=== PATIENT | female | born 1945 | race Caucasian/White ===

== ENCOUNTER → 2022-01-17 13:17 | Outpatient (CLI) | payer SELFPAY ==
[2022-01-17 19:23] LABS: Alanine Aminotransferase 20 IU/L (<35); Albumin 3.8 g/dL (3.5-5.0); Albumin Globulin Ratio 1.3 (1.0-2.8); Alkaline Phosphatase 130 U/L (38-126); Aspartate Aminotransferase 90 IU/L (14-36); BUN Creatinine Ratio 31.6 (6-22); Bilirubin Total 0.4 mg/dL (0.2-1.3); Blood Urea Nitrogen 25 mg/dL (7-17); Calcium 8.9 mg/dL (8.4-10.2); Carbon Dioxide 36 mmol/L (22-32); Chloride 102 mmol/L (98-107); Estimated Glomerular Filt Rate > 60 mL/min (>60); Globulin 2.9 g/dL (1.7-4.1); Glucose 89 mg/dL (80-110); HEMOLYSIS 19 (0-50); Potassium 3.9 mmol/L (3.4-5.1); Sodium 139 mmol/L (137-145); Total Protein 6.7 g/dL (6.3-8.2)
[2022-01-17 19:43] LABS: HEMOLYSIS < 15 (0-50); Iron 95 ug/dL (37-170)
[2022-01-17 19:46] LABS: Vitamin D 25 Hydroxy (D3) 25.6 ng/mL (30.0-100.0)
[2022-01-17 19:47] LABS: Add Manual Diff / Slide Review NO; Basophils Absolute Auto 0 /uL (0-100); Basophils Percent Auto 0.3 % (0-2); Eosinophils Absolute Auto 100 /uL (0-450); Eosinophils Percent Auto 1.3 % (2-4); Hematocrit 32.1 % (36-46); Hemoglobin 10.9 g/dL (12.0-16.0); Lymphocytes Absolute Auto 1300 /uL (1100-4500); Lymphocytes Percent Auto 15.5 % (25-40); Mean Corpuscular HGB Conc 33.9 % (30-36); Mean Corpuscular Hemoglobin 31.6 PG (26-34); Mean Corpuscular Volume 93.2 fL (80-100); Monocytes Absolute Auto 900 /uL (0-900); Monocytes Percent Auto 10.3 % (3-14); Neutrophils Absolute Auto 6100 /uL (1500-7000); Neutrophils Percent Auto 72.6 % (50-75); Platelet Count 233 X10^3/uL (150-400); Red Blood Cell Count 3.45 X10^6/uL (4.0-5.2); Red Cell Distribution Width 14.9 % (11.6-14.8); White Blood Cell Count 8.3 X10^3/uL (4.5-11.0)
[2022-01-17 19:55] LABS: Percent Iron Saturation 32 % (15-50); Total Iron Binding Capacity 297 ug/dL (265-497); Transferrin 229 mg/dL (206-381)
[2022-01-17 20:12] LABS: Vitamin B12 232 pg/mL (239-931)
[2022-01-17 20:21] LABS: TSH w/ Reflex to FT4 0.65 uIU/mL (0.47-4.68)
== END ==
PROVIDERS: PCP Family Medicine; Visit Provider Family Medicine
DX: E46 Unspecified protein-calorie malnutrition (principal); E74.39 Other disorders of intestinal carbohydrate absorption; G47.00 Insomnia, unspecified; N32.81 Overactive bladder; R25.1 Tremor, unspecified; R35.0 Frequency of micturition; R41.3 Other amnesia; R41.89 Other symptoms and signs involving cognitive functions and awareness; R63.4 Abnormal weight loss
CPT/HCPCS: 80053; 82306; 82607; 83540; 83550; 84443; 85025

== ENCOUNTER → 2022-01-19 10:34 | Outpatient (CLI) | payer SELFPAY ==
[2022-01-19 20:25] LABS: Appearance Urine UA Clear; Color Urine UA Yellow; Glucose Urine UA NEGATIVE (Negative); Ketones Urine UA NEGATIVE (NEGATIVE); Protein Urine UA Negative (Negative); Specific Gravity Urine UA 1.015 (1.000-1.035)
[2022-01-19 20:26] LABS: Bilirubin Urine UA Negative (NEGATIVE); Leukocyte Esterase Urine UA NEGATIVE (NEGATIVE); Nitrite Urine UA NEGATIVE (Negative); Occult Blood Urine UA Negative (Negative); Urobilinogen Urine UA 0.2 E.U./dL (0.2)
[2022-01-19 20:29] LABS: Bacteria Urine None Seen; Culture Indicated Urine Cult Not Indicated; RBC Urine 0-1/HPF (0-5/HPF); WBC Urine 0-1/HPF (0-5/HPF)
== END ==
PROVIDERS: PCP Family Medicine; Visit Provider Family Medicine
DX: E46 Unspecified protein-calorie malnutrition (principal); E74.39 Other disorders of intestinal carbohydrate absorption; G47.00 Insomnia, unspecified; N32.81 Overactive bladder; R25.1 Tremor, unspecified; R35.0 Frequency of micturition; R41.3 Other amnesia; R41.89 Other symptoms and signs involving cognitive functions and awareness; R63.4 Abnormal weight loss
CPT/HCPCS: 81001

== ENCOUNTER → 2022-02-16 16:20 | Outpatient (CLI) | payer SELFPAY ==
--- NOTE | 2022-02-16 16:23 | DI.MRI.S_ITS ---
PROCEDURE: MR HEAD/BRAIN WO/W CON INDICATIONS: Severe congnative decline TECHNIQUE: Noncontrast axial T1 spin echo, axial T2 fast spin echo, sagittal and axial FLAIR, coronal T2 fast spin echo, axial gradient echo, axial diffusion and ADC through the brain. After the administration of contrast, axial and coronal and sagittal T1 spin echo with fat saturation through the brain. COMPARISON: None. FINDINGS: Image quality: Excellent. CSF spaces: Basal cisterns are patent. No extra-axial fluid collections. Ventricles are normal in size and shape. Brain: No midline shift. No intracranial bleeds or masses. No abnormal intracranial enhancement. There is cerebral volume loss for age. There is periventricular white matter chronic small vessel ischemic change. The brainstem appears normal. Diffusion-weighted images demonstrate no acute ischemic insults. No chronic ischemic insults. Normal intravascular flow voids are present. Skull and face: Calvarial marrow is normal in signal. Orbits appear normal. Sinuses: Sinuses and mastoids appear clear. IMPRESSION: Brain MRI within normal limits for age, with note made of age-appropriate brain parenchymal volume loss and chronic small vessel ischemic change. No masses or abnormal enhancement can be seen. Dictated by: Roscoe Morillo M.D. on 02/16/2022 at 17:36 Approved by: Roscoe Morillo M.D. on 02/16/2022 at 17:37
== END ==
PROVIDERS: PCP Family Medicine; Referring Provider Family Medicine; Visit Provider Family Medicine
DX: R41.3 Other amnesia (principal); R41.89 Other symptoms and signs involving cognitive functions and awareness; E44.0 Moderate protein-calorie malnutrition; R63.4 Abnormal weight loss
CPT/HCPCS: 70553; A9579

== ENCOUNTER → 2022-06-06 17:17 | Outpatient (CLI) | payer MEDICAID, SELFPAY | PROVIDERS: PCP Family Medicine; Visit Provider Physician Assistant | DX: N39.41 Urge incontinence (principal) | CPT/HCPCS: 72100; 81002; 87086 ==

== ENCOUNTER → 2022-06-12 11:27 | Outpatient (CLI) | payer MEDICAID, SELFPAY ==
[2022-06-12 18:51] LABS: Add Manual Diff / Slide Review NO; Basophils Absolute Auto 0 /uL (0-100); Basophils Percent Auto 0.5 % (0-2); Eosinophils Absolute Auto 100 /uL (0-450); Eosinophils Percent Auto 1.1 % (2-4); Hematocrit 33.9 % (36-46); Hemoglobin 11.6 g/dL (12.0-16.0); Lymphocytes Absolute Auto 1400 /uL (1100-4500); Lymphocytes Percent Auto 20.1 % (25-40); Mean Corpuscular HGB Conc 34.1 % (30-36); Mean Corpuscular Hemoglobin 32.1 PG (26-34); Mean Corpuscular Volume 94.1 fL (80-100); Monocytes Absolute Auto 700 /uL (0-900); Monocytes Percent Auto 10.1 % (3-14); Neutrophils Absolute Auto 4800 /uL (1500-7000); Neutrophils Percent Auto 68.2 % (50-75); Platelet Count 282 X10^3/uL (150-400); Red Cell Distribution Width 12.6 % (11.6-14.8)
[2022-06-12 19:31] LABS: Ferritin 36 ng/mL (11-264)
[2022-06-14 05:12] LABS: Ceruloplasmin 29.9 mg/dL (19.0-39.0)
[2022-06-15 20:45] LABS: Hep C Virus Ab w/Reflex Quant NEGATIVE s/c (NEGATIVE); Hepatitis B Surface Antigen NEGATIVE s/c (NEGATIVE)
[2022-06-16 12:36] LABS: ANA Screen, IFA Negative (.)
== END ==
PROVIDERS: Physician Assistant; PCP Family Medicine; Visit Provider Family Medicine
DX: E44.0 Moderate protein-calorie malnutrition (principal); R63.4 Abnormal weight loss; R79.89 Other specified abnormal findings of blood chemistry; M54.50 Low back pain, unspecified
CPT/HCPCS: 82390; 82728; 85025; 86038; 86803; 87340

== ENCOUNTER → 2022-07-19 11:22 | Outpatient (CLI) | payer MEDICARE, MEDICAID, SELFPAY ==
--- NOTE | 2022-07-19 11:24 | DI.MRI.S_ITS ---
PROCEDURE: MR HEAD/BRAIN WO CON INDICATIONS: recent sudden change in cognition TECHNIQUE: Non-contrast axial T1 spin echo, axial T2 fast spin echo, sagittal and axial FLAIR, coronal T2 fast spin echo, axial gradient echo, axial diffusion and ADC through the brain. COMPARISON: [facility], MR, MR HEAD/BRAIN WO/W CON, 02/16/2022, 17:03. FINDINGS: Image quality: Partially degraded by motion artifact. CSF spaces: Ventricles appear symmetric in size and shape. Basal cisterns are patent. No extra-axial fluid collections. Brain: No intracranial bleeds or mass effects. There is cerebral volume loss for age. There are periventricular and deep white matter chronic small vessel ischemic changes. Brainstem appears normal. Diffusion-weighted images show no acute ischemic insults. No chronic ischemic insults. Normal intravascular flow voids are present. Skull and face: Calvarial bone marrow is normal in signal. Orbits are normal. Sinuses: Sinuses and mastoids are clear. IMPRESSION: 1. Volume loss and small vessel ischemic disease. 2. No acute process. No recent infarct. Dictated by: Bar Bhat M.D. on 07/19/2022 at 12:35 Transcribed by: VANNA on 07/19/2022 at 12:36 Approved by: Bar Bhat M.D. on 07/19/2022 at 16:23
== END ==
PROVIDERS: PCP Family Medicine; Referring Provider Family Medicine; Visit Provider Family Medicine
DX: R55 Syncope and collapse (principal); R41.89 Other symptoms and signs involving cognitive functions and awareness
CPT/HCPCS: 70551

== ENCOUNTER → 2022-07-19 15:28 | Outpatient (CLI) | payer MEDICARE, MEDICAID, SELFPAY ==
--- NOTE | 2022-07-19 15:33 | DI.CT.S_ITS ---
PROCEDURE: CT ABDOMEN PELVIS WO/W CON INDICATIONS: Asymptomatic microscopic hematuria TECHNIQUE: Optional 5 mm thick noncontrast images acquired from the diaphragm to the symphysis pubis. After the administration of intravenous contrast, 5 mm thick images acquired from the diaphragm to the symphysis pubis after a 10-minute delay. 2 mm thick coronal and sagittal reformats were then performed of the kidneys and ureters. For radiation dose reduction, the following was used: automated exposure control, adjustment of mA and/or kV according to patient size. COMPARISON: None. FINDINGS: Image quality: Excellent. Lung bases: Lung bases are clear. Heart size is normal. Urinary system: Both kidneys are normal in size, without hydronephrosis or nephrolithiasis on pre-contrast images. No perinephric fat stranding. There is normal bilateral renal enhancement. Renal calyces appear normal in morphology when filled with contrast. A 1.1 cm cyst is seen at the inferior pole of the right kidney. Additional subcentimeter hypodensities in both kidneys are too small to characterize, but are most likely cysts. Opacified portions of both ureters demonstrate normal caliber. Portions of the proximal left ureter and distal right ureter are not opacified. Bladder wall thickness is normal. No calcified bladder stones. Other solid organs: Liver is normal in size and enhancement. 1.3 cm cyst is seen in the a central liver. Gallbladder is unremarkable. Biliary system is non dilated. Pancreas enhances normally. Spleen is normal in size and enhancement. No adrenal nodules. Peritoneum and bowel: Bowel loops demonstrate normal wall thickness and caliber. No free fluid or air. Nodes and vessels: No retroperitoneal or mesenteric adenopathy by size criteria. Aorta and inferior vena cava are normal in size. Abdominal wall: No ventral hernias. Pelvis: No pathologic free pelvic fluid. No inguinal hernias or adenopathy. Bones: No suspicious bony lesions. No vertebral body compression fractures. There is 4 mm grade 1 anterolisthesis of L4 on L5 secondary to facet hypertrophy. Mild multilevel degenerative changes. IMPRESSION: No suspicious urothelial lesion or nephrolithiasis. No source for hematuria visualized. Approved by: Mane Juarez M.D. on 07/20/2022 at 8:47
[2022-07-19 16:23] LABS: BUN Creatinine Ratio 35.1 (6-22); Blood Urea Nitrogen 34 mg/dL (7-17); Calcium 9.2 mg/dL (8.4-10.2); Carbon Dioxide 29 mmol/L (22-32); Chloride 100 mmol/L (98-107); Estimated Glomerular Filt Rate > 60 mL/min (>60); Glucose 96 mg/dL (80-110); HEMOLYSIS < 15 (0-50); Potassium 4.5 mmol/L (3.4-5.1); Sodium 136 mmol/L (137-145)
== END ==
PROVIDERS: PCP Family Medicine; Referring Provider Urology; Visit Provider Urology
DX: R55 Syncope and collapse (principal); R41.89 Other symptoms and signs involving cognitive functions and awareness; R41.3 Other amnesia; G47.00 Insomnia, unspecified; R31.21 Asymptomatic microscopic hematuria; N39.8 Other specified disorders of urinary system; N32.81 Overactive bladder; N39.41 Urge incontinence; R33.9 Retention of urine, unspecified
CPT/HCPCS: 36415; 51798; 70551; 74178; 80048; 81002; 99214; Q9967

== ENCOUNTER 2022-10-30 14:13 | Emergency (ER) | payer MEDICARE, MEDICAID, SELFPAY ==
[2022-10-30 14:17] VITALS: BP 138/66; PULSE 76; RESP 18; TEMP 36.6; O2SAT 99
--- NOTE | 2022-10-30 14:25 | DI.RAD.S_ITS ---
PROCEDURE: XR CHEST 1V INDICATIONS: Shortness of breath TECHNIQUE: One view of the chest was acquired. COMPARISON: None. FINDINGS: Surgical changes and devices: None. Lungs and pleura: Lungs are clear. No pleural effusions or pneumothorax. Mediastinum: Mediastinal contours appear normal. Heart size is normal. Bones and chest wall: No suspicious bony lesions. Overlying soft tissues appear unremarkable. IMPRESSION: No acute cardiopulmonary disease process. Dictated by: Macie Barber MD, PhD on 10/30/2022 at 15:02 Approved by: Macie Barber MD, PhD on 10/30/2022 at 15:02
[2022-10-30 14:54] LABS: Add Manual Diff / Slide Review NO; Basophils Absolute Auto 0 /uL (0-100); Basophils Percent Auto 0.5 % (0-2); Eosinophils Absolute Auto 100 /uL (0-450); Eosinophils Percent Auto 1.2 % (2-4); Hematocrit 37.9 % (36-46); Hemoglobin 12.8 g/dL (12.0-16.0); Lymphocytes Absolute Auto 1400 /uL (1100-4500); Lymphocytes Percent Auto 18.5 % (25-40); Mean Corpuscular HGB Conc 33.7 % (30-36); Mean Corpuscular Hemoglobin 31.6 PG (26-34); Mean Corpuscular Volume 93.9 fL (80-100); Monocytes Absolute Auto 800 /uL (0-900); Neutrophils Absolute Auto 5300 /uL (1500-7000); Neutrophils Percent Auto 69.8 % (50-75); Platelet Count 284 X10^3/uL (150-400); Red Blood Cell Count 4.04 X10^6/uL (4.0-5.2); Red Cell Distribution Width 12.7 % (11.6-14.8); White Blood Cell Count 7.5 X10^3/uL (4.5-11.0)
[2022-10-30 15:01] LABS: Prothrombin Time 10.9 SECONDS (10.1-12.7)
[2022-10-30 15:12] LABS: Alanine Aminotransferase 20 IU/L (<35); Albumin 4.3 g/dL (3.5-5.0); Albumin Globulin Ratio 1.1 (1.0-2.8); Alkaline Phosphatase 98 U/L (38-126); Aspartate Aminotransferase 28 IU/L (14-36); BUN Creatinine Ratio 28.9 (6-22); Bilirubin Total 0.5 mg/dL (0.2-1.3); Blood Urea Nitrogen 24 mg/dL (7-17); Calcium 9.1 mg/dL (8.4-10.2); Carbon Dioxide 29 mmol/L (22-32); Chloride 100 mmol/L (98-107); Estimated Glomerular Filt Rate > 60 mL/min (>60); Globulin 3.8 g/dL (1.7-4.1); Glucose 94 mg/dL (80-110); HEMOLYSIS < 15 (0-50); Potassium 3.9 mmol/L (3.4-5.1); Sodium 135 mmol/L (137-145); Total Protein 8.1 g/dL (6.3-8.2)
[2022-10-30 15:14] LABS: Lactate (Lactic Acid) 0.9 mmol/L (0.7-2.1)
[2022-10-30 15:22] LABS: NT-proBNP (BNP-Adult 18+) 66 pg/mL (<450)
[2022-10-30 15:24] LABS: NT-proBNP (BNP-Adult 18+) 64 pg/mL (<450); Troponin I < 0.012 ng/mL (0.01-0.034)
[2022-10-30 15:29] LABS: Influenza A - CEPHEID Flu A NEGATIVE (NEGATIVE); Influenza B - CEPHEID Flu B NEGATIVE (NEGATIVE); Respiratory Syncytial Virus Negative (Negative)
[2022-10-30 15:31] LABS: COVID-19 CEPHEID 4-PLEX PCR Negative (Negative)
[2022-10-30 16:06] LABS: D Dimer 460 ng/ml (<500)
[2022-10-30 17:29] LABS: Troponin I < 0.012 ng/mL (0.01-0.034)
--- NOTE | 2022-10-30 17:37 | ED.SOB ---
HPI - SOB/Dyspnea <Florin Ayoub PA-C - Last Filed: 11/07/22 20:34> General Chief Complaint: Shortness of Breath/Dyspnea Stated Complaint: heavy in chest/SOB/dizzy/upset stomach T-14 Time Seen by Provider: 10/30/22 14:25 Source: patient Mode of arrival: Wheelchair Limitations: no limitations History of Present Illness HPI Narrative: 77-year-old female with a history of cognitive decline presents to the ED with chest pressure. Patient endorses chest pressure, shortness of breath, nausea and dizziness for the past week. Patient also endorses some inspirational chest pain and shortness of breath with exertion. Patient denies fever, chills, vomiting, abdominal pain, dysuria, lightheadedness, dizziness, syncope. Patient is in the ED with her caregiver. Patient has had significant cognitive decline after the passing of her . Related Data Home Medications Medication Instructions Recorded Confirmed mirtazapine 30 mg tablet 30 mg PO BEDTIME 06/29/22 08/03/22 Previous Rx's Medication Instructions Recorded tamsulosin 0.4 mg capsule 0.4 mg PO DAILY #30 caps 08/03/22 tolterodine 2 mg tablet (Detrol) 2 mg PO BID #180 tabs 10/17/22 trazodone 50 mg tablet 50 mg PO BEDTIME PRN insomnia #90 11/05/22 tabs Allergies Allergy/AdvReac Type Severity Reaction Status Date / Time No Known Drug Allergies Allergy Verified 10/30/22 14:22 Review of Systems <Florin Ayoub PA-C - Last Filed: 11/07/22 20:34> Review of Systems ROS Unobtainable: All systems reviewed & are unremarkable except as noted in HPI and below Constitutional Constitutional: Denies chills, Reports fatigue, Denies fever(s), Denies frequent falls, Denies lethargy, Reports poor appetite and Denies weakness Eyes Eyes: Denies change in vision, Denies eye discharge, Denies irritation and Denies loss of vision ENT Ears, Nose, Mouth, and Throat: Denies change in voice, Denies dizziness, Denies neck pain, Denies sore throat and Denies throat swelling Cardiovascular Cardiovascular: Reports chest pain, Denies irregular heart rhythm, Denies lightheadedness, Denies palpitations, Reports dyspnea, Denies dyspnea on exertion and Denies orthopnea Respiratory Respiratory: Denies cough, Reports dyspnea, Denies dyspnea on exertion and Denies wheezing Gastrointestinal Gastrointestinal: Denies abdominal pain, Denies change in bowel habits, Denies diarrhea, Reports nausea and Denies vomiting Genitourinary Genitourinary: Denies hematuria, Denies flank pain, Denies urinary incontinence and Denies urinary urgency Musculoskeletal Musculoskeletal: Denies back pain, Denies muscle weakness, Denies neck pain, Denies numbness and Denies tingling Integumentary/Breasts Skin/Breast: Denies pruritus, Denies erythema, Denies rash and Denies wounds Neurologic Neurologic: Denies behavioral changes, Denies confusion, Denies dizziness, Denies frequent falls, Denies loss of vision, Denies numbness, Denies tingling and Denies weakness Psychiatric Psychiatric: Denies anxiety, Denies behavioral changes, Denies confusion, Denies depression, Denies homicidal ideation and Denies suicidal ideation Endocrine Endocrine: Reports fatigue, Denies flushing and Denies palpitations Hematologic/Lymphatic Hematologic/Lymphatic: Denies easy bruising Allergic/Immunologic Allergic/Immunologic: Denies urticaria, Denies throat swelling and Denies wheezing Patient History <Florin Ayoub PA-C - Last Filed: 11/07/22 20:34> Medical History Asymptomatic microscopic hematuria Bladder outlet obstruction Incomplete emptying of bladder Neurological disease Voiding dysfunction Family History Family/Other Hyperlipidemia Social History marital status: number of children: 0 Smoking Status: Never smoker Type(s) of exercise: walking frequency: 5-6 times per week Smoking Status: Never smoker Exam <Florin Ayoub PA-C - Last Filed: 11/07/22 20:34> Narrative Exam Narrative: Const General:?cooperative, healthy appearing and comfortable [facility] Head:?normal to inspection Ears:?hearing grossly normal bilaterally Nose:?external nose normal Face and sinus:?normal facial exam and sinuses nontender Mouth:?oral mucosae normal Throat:?posterior oropharynx normal Eyes General:?appearance normal, both eyes and all related structures Neck Neck:?normal visual inspection and no lymphadenopathy noted Resp Effort & Inspection:?normal respiratory effort Auscultation:?clear to auscultation bilaterally Cardio Rate:?regular rate Rhythm:?regular rhythm GI Abdomen is soft, nondistended, nontender to palpation. There is no CVA tenderness. Neuro General:?patient alert, patient awake and patient oriented x3 Initial Vital Signs Initial Vital Signs: Vital Signs Temperature 97.9 F 10/30/22 14:17 Pulse Rate 76 10/30/22 14:17 Respiratory Rate 18 10/30/22 14:17 Blood Pressure 138/66 10/30/22 14:17 Pulse Oximetry 99 10/30/22 14:17 Oxygen Delivery Method Room Air 10/30/22 14:17 <Sal Chauhan DO - Last Filed: 11/13/22 07:18> Initial Vital Signs Initial Vital Signs: Vital Signs Temperature 97.9 F 10/30/22 14:17 Pulse Rate 76 10/30/22 14:17 Respiratory Rate 18 10/30/22 14:17 Blood Pressure 138/66 10/30/22 14:17 Pulse Oximetry 99 10/30/22 14:17 Oxygen Delivery Method Room Air 10/30/22 14:17 Scores <Florin Ayoub PA-C - Last Filed: 11/07/22 20:34> HEART Score Heart Score history: Slightly Suspicious Heart Score EKG: Normal Heart Score Age: > or = 65 years old Heart Score risk factors: No known risk factors Heart Score troponin: < or = to normal limit Heart Score Total: 2 <Sal Chauhan DO - Last Filed: 11/13/22 07:18> HEART Score Heart Score Total: 2 Course <WOLF Page Last Filed: 11/07/22 20:34> Orders Ordered: ED Orders 10/30/22 14:25 XR chest 1V Stat EKG-12 Lead Stat Measure peak expiratory flow ONCE RT Consult Eval and Treat NOW 10/30/22 14:40 Complete Blood Count AUTO DIFF Stat Comprehensive Metabolic Panel Stat Covid-19 + FLU A/B + RSV - PCR Stat D Dimer Stat Lactate (Lactic Acid) Stat NT-proBNP (BNP-Adult 18+) Stat NT-proBNP (BNP-Adult 18+) Stat Prothrombin Time INR Stat Troponin I Stat 10/30/22 16:38 Troponin I Stat 10/30/22 16:46 EKG-12 Lead Routine Vital Signs Vital signs: Vital Signs - 8 hr 10/30/22 14:17 Temperature 97.9 F Pulse Rate 76 Respiratory Rate 18 Blood Pressure 138/66 Pulse Oximetry 99 Oxygen Delivery Method Room Air <Sal Chauhan DO - Last Filed: 11/13/22 07:18> Orders Ordered: ED Orders 10/30/22 14:25 XR chest 1V Stat EKG-12 Lead Stat Measure peak expiratory flow ONCE RT Consult Eval and Treat NOW 10/30/22 14:40 Complete Blood Count AUTO DIFF Stat Comprehensive Metabolic Panel Stat Covid-19 + FLU A/B + RSV - PCR Stat D Dimer Stat Lactate (Lactic Acid) Stat NT-proBNP (BNP-Adult 18+) Stat NT-proBNP (BNP-Adult 18+) Stat Prothrombin Time INR Stat Troponin I Stat 10/30/22 16:38 Troponin I Stat 10/30/22 16:46 EKG-12 Lead Routine Vital Signs Vital signs: Vital Signs - 8 hr 10/30/22 14:17 Temperature 97.9 F Pulse Rate 76 Respiratory Rate 18 Blood Pressure 138/66 Pulse Oximetry 99 Oxygen Delivery Method Room Air MDM - SOB/Dyspnea <Florin Ayoub PA-C - Last Filed: 11/07/22 20:34> Lab Data 10/30/22 14:40 10/30/22 14:40 Labs: Lab Results 10/30/22 10/30/22 10/30/22 Range/Units 14:40 14:40 14:40 WBC 7.5 (4.5-11.0) X10^3/uL RBC 4.04 (4.0-5.2) X10^6/uL Hgb 12.8 (12.0-16.0) g/dL Hct 37.9 (36-46) % MCV 93.9 (80-100) fL MCH 31.6 (26-34) PG MCHC 33.7 (30-36) % RDW 12.7 (11.6-14.8) % Plt Count 284 (150-400) X10^3/uL Neut % (Auto) 69.8 (50-75) % Lymph % (Auto) 18.5 L (25-40) % [place] % (Auto) 10.0 (3-14) % Eos % (Auto) 1.2 L (2-4) % Baso % (Auto) 0.5 (0-2) % Neut # (Auto) 5300 (4334-7256) /uL Lymph # (Auto) 1400 (1467-0371) /uL [place] # (Auto) 800 (0-900) /uL Eos # (Auto) 100 (0-450) /uL Baso # (Auto) 0 (0-100) /uL PT 10.9 (10.1-12.7) SECONDS INR 1.0 (0.9-1.3) D-Dimer (<500) ng/ml Sodium 135 L (137-145) mmol/L Potassium 3.9 (3.4-5.1) mmol/L Chloride 100 (98-107) mmol/L Carbon Dioxide 29 (22-32) mmol/L BUN 24 H (7-17) mg/dL Creatinine 0.83 (0.52-1.04) mg/dL Estimated GFR > 60 (>60) mL/min BUN/Creatinine Ratio 28.9 H (6-22) Glucose 94 (80-110) mg/dL Lactate (0.7-2.1) mmol/L Calcium 9.1 (8.4-10.2) mg/dL Total Bilirubin 0.5 (0.2-1.3) mg/dL AST 28 (14-36) IU/L ALT 20 (<35) IU/L Alkaline Phosphatase 98 (38-126) U/L Troponin I < 0.012 (0.01-0.034) ng/mL NT-Pro-B Natriuret Pep 64 (<450) pg/mL Total Protein 8.1 (6.3-8.2) g/dL Albumin 4.3 (3.5-5.0) g/dL Globulin 3.8 (1.7-4.1) g/dL Albumin/Globulin Ratio 1.1 (1.0-2.8) SARS-CoV-2 (PCR) (Negative) Influenza A (RT-PCR) (NEGATIVE) Influenza B (RT-PCR) (NEGATIVE) RSV (PCR) (Negative) 10/30/22 10/30/22 10/30/22 Range/Units 14:40 14:40 14:40 WBC (4.5-11.0) X10^3/uL RBC (4.0-5.2) X10^6/uL Hgb (12.0-16.0) g/dL Hct (36-46) % MCV (80-100) fL MCH (26-34) PG MCHC (30-36) % RDW (11.6-14.8) % Plt Count (150-400) X10^3/uL Neut % (Auto) (50-75) % Lymph % (Auto) (25-40) % [place] % (Auto) (3-14) % Eos % (Auto) (2-4) % Baso % (Auto) (0-2) % Neut # (Auto) (9779-4259) /uL Lymph # (Auto) (2624-8999) /uL [place] # (Auto) (0-900) /uL Eos # (Auto) (0-450) /uL Baso # (Auto) (0-100) /uL PT (10.1-12.7) SECONDS INR (0.9-1.3) D-Dimer (<500) ng/ml Sodium (137-145) mmol/L Potassium (3.4-5.1) mmol/L Chloride (98-107) mmol/L Carbon Dioxide (22-32) mmol/L BUN (7-17) mg/dL Creatinine (0.52-1.04) mg/dL Estimated GFR (>60) mL/min BUN/Creatinine Ratio (6-22) Glucose (80-110) mg/dL Lactate 0.9 (0.7-2.1) mmol/L Calcium (8.4-10.2) mg/dL Total Bilirubin (0.2-1.3) mg/dL AST (14-36) IU/L ALT (<35) IU/L Alkaline Phosphatase (38-126) U/L Troponin I (0.01-0.034) ng/mL NT-Pro-B Natriuret Pep 66 (<450) pg/mL Total Protein (6.3-8.2) g/dL Albumin (3.5-5.0) g/dL Globulin (1.7-4.1) g/dL Albumin/Globulin Ratio (1.0-2.8) SARS-CoV-2 (PCR) Negative (Negative) Influenza A (RT-PCR) Flu a negative (NEGATIVE) Influenza B (RT-PCR) Flu b negative (NEGATIVE) RSV (PCR) Negative (Negative) 10/30/22 10/30/22 Range/Units 14:40 16:38 WBC (4.5-11.0) X10^3/uL RBC (4.0-5.2) X10^6/uL Hgb (12.0-16.0) g/dL Hct (36-46) % MCV (80-100) fL MCH (26-34) PG MCHC (30-36) % RDW (11.6-14.8) % Plt Count (150-400) X10^3/uL Neut % (Auto) (50-75) % Lymph % (Auto) (25-40) % [place] % (Auto) (3-14) % Eos % (Auto) (2-4) % Baso % (Auto) (0-2) % Neut # (Auto) (1593-3871) /uL Lymph # (Auto) (6712-7174) /uL [place] # (Auto) (0-900) /uL Eos # (Auto) (0-450) /uL Baso # (Auto) (0-100) /uL PT (10.1-12.7) SECONDS INR (0.9-1.3) D-Dimer 460 (<500) ng/ml Sodium (137-145) mmol/L Potassium (3.4-5.1) mmol/L Chloride (98-107) mmol/L Carbon Dioxide (22-32) mmol/L BUN (7-17) mg/dL Creatinine (0.52-1.04) mg/dL Estimated GFR (>60) mL/min BUN/Creatinine Ratio (6-22) Glucose (80-110) mg/dL Lactate (0.7-2.1) mmol/L Calcium (8.4-10.2) mg/dL Total Bilirubin (0.2-1.3) mg/dL AST (14-36) IU/L ALT (<35) IU/L Alkaline Phosphatase (38-126) U/L Troponin I < 0.012 (0.01-0.034) ng/mL NT-Pro-B Natriuret Pep (<450) pg/mL Total Protein (6.3-8.2) g/dL Albumin (3.5-5.0) g/dL Globulin (1.7-4.1) g/dL Albumin/Globulin Ratio (1.0-2.8) SARS-CoV-2 (PCR) (Negative) Influenza A (RT-PCR) (NEGATIVE) Influenza B (RT-PCR) (NEGATIVE) RSV (PCR) (Negative) Urine Dip Bedside Urine Glucose Negative Bedside Urine Bilirubin - Negative Bedside Urine Ketone - Negative Urine Specific [place] 1.015 Bedside Urine Occult Blood - Negative Bedside Urine pH 6.5 Bedside Urine Protein - Negative Bedside Urine Urobilinogen - Negative Bedside Urine Nitrite - Negative Bedside Urine Leukocytes - Negative Esterase MDM Narrative Medical decision making narrative: 77-year-old female with a history of cognitive decline presents to the ED with chest pressure. Concern for ACS versus pneumonia versus dehydration versus electrolyte derangements versus other. Obtained EKG, chest x-ray, labs, troponin, D-dimer, UA. Workup was largely unremarkable. Repeat troponin and EKG without acute changes as well. HEART score 2, low risk, safe for discharge. Discussed findings with patient and patient's caregiver. They agree to follow-up with her PCP. ED return precautions were discussed with patient. They verbalized understanding. Patient was stable through the ED stay. Medical records reviewed: Yes <Sal Chauhan DO - Last Filed: 11/13/22 07:18> Lab Data Labs: Lab Results 10/30/22 10/30/22 10/30/22 Range/Units 14:40 14:40 14:40 WBC 7.5 (4.5-11.0) X10^3/uL RBC 4.04 (4.0-5.2) X10^6/uL Hgb 12.8 (12.0-16.0) g/dL Hct 37.9 (36-46) % MCV 93.9 (80-100) fL MCH 31.6 (26-34) PG MCHC 33.7 (30-36) % RDW 12.7 (11.6-14.8) % Plt Count 284 (150-400) X10^3/uL Neut % (Auto) 69.8 (50-75) % Lymph % (Auto) 18.5 L (25-40) % [place] % (Auto) 10.0 (3-14) % Eos % (Auto) 1.2 L (2-4) % Baso % (Auto) 0.5 (0-2) % Neut # (Auto) 5300 (0608-9311) /uL Lymph # (Auto) 1400 (6754-4404) /uL [place] # (Auto) 800 (0-900) /uL Eos # (Auto) 100 (0-450) /uL Baso # (Auto) 0 (0-100) /uL PT 10.9 (10.1-12.7) SECONDS INR 1.0 (0.9-1.3) D-Dimer (<500) ng/ml Sodium 135 L (137-145) mmol/L Potassium 3.9 (3.4-5.1) mmol/L Chloride 100 (98-107) mmol/L Carbon Dioxide 29 (22-32) mmol/L BUN 24 H (7-17) mg/dL Creatinine 0.83 (0.52-1.04) mg/dL Estimated GFR > 60 (>60) mL/min BUN/Creatinine Ratio 28.9 H (6-22) Glucose 94 (80-110) mg/dL Lactate (0.7-2.1) mmol/L Calcium 9.1 (8.4-10.2) mg/dL Total Bilirubin 0.5 (0.2-1.3) mg/dL AST 28 (14-36) IU/L ALT 20 (<35) IU/L Alkaline Phosphatase 98 (38-126) U/L Troponin I < 0.012 (0.01-0.034) ng/mL NT-Pro-B Natriuret Pep 64 (<450) pg/mL Total Protein 8.1 (6.3-8.2) g/dL Albumin 4.3 (3.5-5.0) g/dL Globulin 3.8 (1.7-4.1) g/dL Albumin/Globulin Ratio 1.1 (1.0-2.8) SARS-CoV-2 (PCR) (Negative) Influenza A (RT-PCR) (NEGATIVE) Influenza B (RT-PCR) (NEGATIVE) RSV (PCR) (Negative) 10/30/22 10/30/22 10/30/22 Range/Units 14:40 14:40 14:40 WBC (4.5-11.0) X10^3/uL RBC (4.0-5.2) X10^6/uL Hgb (12.0-16.0) g/dL Hct (36-46) % MCV (80-100) fL MCH (26-34) PG MCHC (30-36) % RDW (11.6-14.8) % Plt Count (150-400) X10^3/uL Neut % (Auto) (50-75) % Lymph % (Auto) (25-40) % [place] % (Auto) (3-14) % Eos % (Auto) (2-4) % Baso % (Auto) (0-2) % Neut # (Auto) (0760-6588) /uL Lymph # (Auto) (5234-6219) /uL [place] # (Auto) (0-900) /uL Eos # (Auto) (0-450) /uL Baso # (Auto) (0-100) /uL PT (10.1-12.7) SECONDS INR (0.9-1.3) D-Dimer (<500) ng/ml Sodium (137-145) mmol/L Potassium (3.4-5.1) mmol/L Chloride (98-107) mmol/L Carbon Dioxide (22-32) mmol/L BUN (7-17) mg/dL Creatinine (0.52-1.04) mg/dL Estimated GFR (>60) mL/min BUN/Creatinine Ratio (6-22) Glucose (80-110) mg/dL Lactate 0.9 (0.7-2.1) mmol/L Calcium (8.4-10.2) mg/dL Total Bilirubin (0.2-1.3) mg/dL AST (14-36) IU/L ALT (<35) IU/L Alkaline Phosphatase (38-126) U/L Troponin I (0.01-0.034) ng/mL NT-Pro-B Natriuret Pep 66 (<450) pg/mL Total Protein (6.3-8.2) g/dL Albumin (3.5-5.0) g/dL Globulin (1.7-4.1) g/dL Albumin/Globulin Ratio (1.0-2.8) SARS-CoV-2 (PCR) Negative (Negative) Influenza A (RT-PCR) Flu a negative (NEGATIVE) Influenza B (RT-PCR) Flu b negative (NEGATIVE) RSV (PCR) Negative (Negative) 04/11/23 04/11/23 Range/Units 14:40 16:38 WBC (4.5-11.0) X10^3/uL RBC (4.0-5.2) X10^6/uL Hgb (12.0-16.0) g/dL Hct (36-46) % MCV (80-100) fL MCH (26-34) PG MCHC (30-36) % RDW (11.6-14.8) % Plt Count (150-400) X10^3/uL Neut % (Auto) (50-75) % Lymph % (Auto) (25-40) % [place] % (Auto) (3-14) % Eos % (Auto) (2-4) % Baso % (Auto) (0-2) % Neut # (Auto) (3631-8054) /uL Lymph # (Auto) (6530-7237) /uL [place] # (Auto) (0-900) /uL Eos # (Auto) (0-450) /uL Baso # (Auto) (0-100) /uL PT (10.1-12.7) SECONDS INR (0.9-1.3) D-Dimer 460 (<500) ng/ml Sodium (137-145) mmol/L Potassium (3.4-5.1) mmol/L Chloride (98-107) mmol/L Carbon Dioxide (22-32) mmol/L BUN (7-17) mg/dL Creatinine (0.52-1.04) mg/dL Estimated GFR (>60) mL/min BUN/Creatinine Ratio (6-22) Glucose (80-110) mg/dL Lactate (0.7-2.1) mmol/L Calcium (8.4-10.2) mg/dL Total Bilirubin (0.2-1.3) mg/dL AST (14-36) IU/L ALT (<35) IU/L Alkaline Phosphatase (38-126) U/L Troponin I < 0.012 (0.01-0.034) ng/mL NT-Pro-B Natriuret Pep (<450) pg/mL Total Protein (6.3-8.2) g/dL Albumin (3.5-5.0) g/dL Globulin (1.7-4.1) g/dL Albumin/Globulin Ratio (1.0-2.8) SARS-CoV-2 (PCR) (Negative) Influenza A (RT-PCR) (NEGATIVE) Influenza B (RT-PCR) (NEGATIVE) RSV (PCR) (Negative) Urine Dip Bedside Urine Glucose Negative Bedside Urine Bilirubin - Negative Bedside Urine Ketone - Negative Urine Specific [place] 1.015 Bedside Urine Occult Blood - Negative Bedside Urine pH 6.5 Bedside Urine Protein - Negative Bedside Urine Urobilinogen - Negative Bedside Urine Nitrite - Negative Bedside Urine Leukocytes - Negative Esterase Discharge Plan Departure Patient Disposition: Home Clinical Impression: Chest pain Instructions: DI for Chest Pain Activity Restrictions/Additional Instructions: You were evaluated in the ED today for chest pain and shortness of breath. Your labs, chest x-ray, EKG were normal. It is unclear the source of your symptoms. Please follow-up with your PCP as soon as possible for further evaluation. Return to the ED if your symptoms worsen, you have worsening chest pain or shortness of breath or persistent vomiting. Prescriptions: No Action tolterodine [Detrol] 2 mg tablet 2 mg PO BID Qty: 180 1RF trazodone 50 mg tablet 50 mg PO BEDTIME PRN (Reason: insomnia) Qty: 90 0RF mirtazapine 30 mg tablet 30 mg PO BEDTIME tamsulosin 0.4 mg capsule 0.4 mg PO DAILY Qty: 30 12RF Referrals: iZ Hussein MD [Primary Care Provider] - Stand Alone Forms: Patient Portal/API <Sal Chauhan DO - Last Filed: 11/13/22 07:18> Cosign ED Attending Cosghassanature Attestation: I was immediately available in the department for consultation. This documentation has been reviewed and I agree with assessment and plan. Supervised by Sal Chauhan DO
[2022-10-30 17:45] VITALS: BP 112/55; PULSE 67; RESP 18; O2SAT 98
== END 2022-10-30 17:46 | disposition home or self-care (01) ==
PROVIDERS: Emergency Medicine; Emergency Provider Student in an Organized Health Care Education/Training Program; PCP Family Medicine
DX: R07.9 Chest pain, unspecified (principal); R06.02 Shortness of breath; Z20.822 Contact with and (suspected) exposure to COVID-19
CPT/HCPCS: 0241U; 36415; 71045; 80053; 81003; 83605; 83880; 84484; 85025; 85379; 85610; 93005; 99284

== ENCOUNTER 2023-02-12 09:07 | Day surgery (SDC) | payer MEDICARE, MEDICAID, SELFPAY ==
[2023-02-12] VITALS (7 sets, daily range): BP systolic 125–147; BP diastolic 70–87; PULSE 68–80; RESP 8–16; TEMP 36.6; O2SAT 97–98; BMI 28.3
[2023-02-12] MEDS: LACTATED RINGERS 1,000 ML 42 ML IV (09:59)
--- NOTE | 2023-02-12 10:24 | PM.PREOP ---
Pre-operative Note COVID-19 COVID-19 status: Not tested Criteria for continued procedure: Delay expected to result in less-positive ultimate med/surg outcome and Non-surgical alternatives not available or appropriate per current SOC Interval Note History & Physical reviewed/Exam performed by Physician: Yes Changes to H&P: No
[2023-02-12] MEDS: CEFAZOLIN 2 GM/100 ML PREMIX 100 ML IV (10:51)
--- NOTE | 2023-02-12 11:11 | SUR.OPER ---
Lithotomy on padded OR bed, head on pillow, arms secured on padded arm boards at <90 degrees abduction. Legs secured in padded yellow fins stirrups.
[2023-02-12] MEDS: BUPIVACAINE 0.25% (PF) VIAL 30 ML INJ (11:20)
[2023-02-12] MEDS: MINERAL OIL LIGHT TOPICAL 10 ML TOP (11:20)
--- NOTE | 2023-02-12 11:33 | PM.OP.1 ---
Operative Date/Time/Diagnoses Date of procedure: 02/12/23 Time of procedure: 11:33 Pre-op diagnosis: Voiding dysfunction and fall risk Post-op diagnosis: same Procedure & Clinicians Procedure: Percutaneous direct vision placement of suprapubic tube with cystoscopy Same procedure as scheduled: Yes Indications: This is a very pleasant 77-year-old female who has voiding dysfunction cognitive Diskus and a number of falls. She has significant fall risk and her primary care provider has requested that a suprapubic tube be placed to limit her nocturia and emptying of her bladder. She presents this time for suprapubic tube placement. Surgeon: Priyank Alexander Click Yes if Unassisted: Yes Anesthesia Type: General Operative Notes Findings: Urethra is normal along its length. Ureteral orifices normal position with clear efflux. Mucosa of the bladder is normal without lesion there is moderate to severe trabeculation and no other abnormality within the bladder. A 16 Guamanian all silicone catheter is left in place as a suprapubic tube with 10 cc in the balloon. Closure Type: not applicable Prosthetic devices, grafts, tissues, transplants, or devices: Sixteen Guamanian all silicone catheter left in place as a suprapubic tube with 10 cc in the balloon. Estimated Blood Loss (mL): 5 Procedure in detail: After informed consent was obtained, the patient was identified and brought to the operating room where she was placed in his supine position on the table. Patient then had anesthesia induced and maintained. Ensuring an adequate level of anesthesia the patient was transitioned to the lithotomy position where she was prepped, draped and prepared for cystoscopy and suprapubic tube placement. After ensuring an adequate level of anesthesia, prepping, draping and time-out the 22 Guamanian cystoscope was passed through the urethra and into the bladder. The urethral meatus was small and therefore was dilated to 26 Guamanian with Rufino sounds prior to the scoping pass once in the bladder cystoscopy is performed. The bladder was filled to capacity in the place and placed in his stream Trendelenburg. Then with the dome directly visualized by the scope a seeker needle was placed in the midline 1 fingerbreadth above the superior margin of the pubic bone. It was observed in the bladder the bladder subcutaneous tissues and skin were then infiltrated with 0.25% Marcaine. A transverse incision was made at this spot points of bleeding were controlled with electrocautery. Then the trocar and sheath were passed under direct vision into the bladder. The trocar was removed the catheter pressed through the sheath the balloon filled with 10 cc of sterile water. The sheath was then backed out and removed. It catheter left in place the skin was then reapproximated with an interrupted horizontal mattress of 2-0 nylon. Catheter was then secured in place with the same 2-0 nylon. Cystoscopy was again performed catheter was in good position no bleeding was noted dressings were applied bladder was drained catheter placed to gravity drainage the patient was awakened taken to postanesthesia care unit having tolerated the procedure well and there were Complications: none Post-operative Condition: stable Disposition: PACU Plan for aftercare: Patient to follow up my office in 10 days for stitch removal.
== END 2023-02-12 12:30 | disposition home or self-care (01) ==
PROVIDERS: PCP Family Medicine; Referring Provider Urology; Visit Provider Urology
PROC: 0T9B30Z Drainage of Bladder with Drainage Device, Percutaneous Approach (ICD-10-PCS; CPT 51102; principal; 2023-02-12 10:45)
DX: R35.0 Frequency of micturition (principal); R35.1 Nocturia; G31.84 Mild cognitive impairment of uncertain or unknown etiology; Z91.81 History of falling
CPT/HCPCS: 51102; J0690; J1100; J2405; J2704; J3010

== ENCOUNTER → 2023-03-12 16:22 | Outpatient (CLI) | payer MEDICARE, MEDICAID, SELFPAY | PROVIDERS: PCP Family Medicine; Visit Provider Urology | DX: R31.21 Asymptomatic microscopic hematuria (principal) | CPT/HCPCS: 87077; 87086; 87186 ==

== ENCOUNTER → 2023-04-11 13:41 | Outpatient (CLI) | payer MEDICARE, MEDICAID, SELFPAY | PROVIDERS: PCP Family Medicine; Visit Provider Urology | DX: N32.81 Overactive bladder (principal); N32.0 Bladder-neck obstruction; R33.9 Retention of urine, unspecified; N39.8 Other specified disorders of urinary system; R31.21 Asymptomatic microscopic hematuria; N39.41 Urge incontinence; R41.3 Other amnesia; G47.00 Insomnia, unspecified | CPT/HCPCS: 51702; 87077; 87086; 87186; 99213 ==

== ENCOUNTER → 2023-05-14 16:21 | Outpatient (CLI) | payer MEDICARE, MEDICAID, SELFPAY | PROVIDERS: PCP Family Medicine; Visit Provider Urology | DX: N32.81 Overactive bladder (principal); N32.0 Bladder-neck obstruction; R33.9 Retention of urine, unspecified; N39.8 Other specified disorders of urinary system; R31.21 Asymptomatic microscopic hematuria; R41.3 Other amnesia; Z91.81 History of falling | CPT/HCPCS: 51702; 87077; 87086; 87186; 99213 ==

== ENCOUNTER 2023-06-09 18:59 | Emergency (ER) | payer MEDICARE, MEDICAID, SELFPAY ==
[2023-06-09] VITALS (11 sets, daily range): BP systolic 159–172; BP diastolic 72–80; PULSE 91–103; RESP 20; TEMP 36.6–36.7; O2SAT 96–99; BMI 35.2
--- NOTE | 2023-06-09 19:14 | DI.RAD.S_ITS ---
PROCEDURE: XR SHOULDER LT MIN 2V INDICATIONS: pain, s/p fall TECHNIQUE: 3 views of the shoulder were acquired. COMPARISON:[facility], CR, XR ELBOW LT MIN 3V, 06/09/2023, 19:43. The FINDINGS: Bones: There is a displaced, comminuted humeral head fracture with extension into the greater tuberosity. Impaction is present. No dislocation at the glenohumeral joint space. Soft tissues: No suspicious soft tissue calcifications. IMPRESSION: Comminuted humeral head fracture with displacement. Dictated by: Lidia Kapoor M.D. on 06/09/2023 at 20:23 Approved by: Lidia Kapoor M.D. on 06/09/2023 at 20:24
--- NOTE | 2023-06-09 19:14 | ED.FALL ---
HPI - Fall General Chief Complaint: Fall Stated Complaint: GLF hit head, no thinners Time Seen by Provider: 06/09/23 19:06 Source: family Mode of arrival: Wheelchair History of Present Illness HPI Narrative: 77-year-old woman with a history of advanced dementia she has a full-time caregiver, she has chronic Fair catheter in place apparently was walking near her trailer tripped over 1 of the parking blocks falling onto her left side. She is significantly anxious. Complains of pain to the left side of her face, her neck left shoulder left elbow and states it hurts to lift up her right arm but there is no palpable pain points on that side. There was no loss of consciousness and she was able to get up off the ground with assistance. Her caregivers notes she is been in her usual state of health with no recent fevers, cough, chills, chest pain, fatigue, dyspnea, complaints of dysuria or flank pain (she does have an indwelling Fair catheter) Related Data Previous Rx's Medication Instructions Recorded tolterodine 2 mg tablet (Detrol) 2 mg PO BID #180 tabs 10/17/22 Shower Chair #1 ea 04/09/23 trazodone 50 mg tablet 50 mg PO BEDTIME PRN insomnia #90 05/31/23 tabs Allergies Allergy/AdvReac Type Severity Reaction Status Date / Time No Known Drug Allergies Allergy Verified 05/14/23 16:00 Review of Systems Review of Systems Narrative: Pertinent positive and negative findings as per HPI Patient History Medical History (Updated 06/09/23 @ 22:57 by Sadie Santos MD) Dementia Risk for falls Voiding dysfunction Family History Family/Other Hyperlipidemia Social History marital status: number of children: 0 Smoking Status: Never smoker alcohol intake: never Type(s) of exercise: walking frequency: 5-6 times per week Smoking Status: Never smoker Substance Use Type: does not use Exam Initial Vital Signs Initial Vital Signs: Vital Signs Temperature 98.0 F 06/09/23 19:09 Pulse Rate 99 H 06/09/23 19:09 Respiratory Rate 20 06/09/23 19:09 Blood Pressure 159/72 H 06/09/23 19:09 Pulse Oximetry 99 06/09/23 19:09 Oxygen Delivery Method Room Air 06/09/23 19:09 General: Healthy appearing, anxious, mild hyperventilation able to refocus not able to add additional history HEENT: Moist mucous membranes, normal sclera with reactive pupils, extraocular eye movement is nonpainful and intact bilaterally. She does have swelling and fullness to the right cheek but no obvious abrasion or hematoma. There is no tenderness to the maxilla with palpation, the TMJ or complaints of dental malocclusion Neck: Midline cervical spine tenderness from C2-C5 Respiratory: Lungs are clear to auscultation, no wheezing no rales no rhonchi. Full and symmetrical air movement Thorax: No tenderness with manipulation of spine or clavicles Cardiac: Regular rate and rhythm no murmurs no bruits Abdomen: Soft, nontender, good bowel tones, no flank pain Skin: Warm and dry, no rashes Neurologic: Complains that she can not move her upper extremity secondary to pain. Extremities: She is able to grasp bilaterally without difficulty. Left proximal humerus is tender to palpation and she is unwilling to completely extend her left elbow. There is a minor skin abrasion over her left elbow. She is neurovascularly intact. The right extremity has no tenderness to palpation at elbow, shoulder, wrist or any midline bone pain. She has no tenderness over clavicles. Psych: Cooperative, anxious, advanced dementia Course Orders Ordered: ED Orders 06/09/23 19:14 XR shoulder LT min 2V Stat 06/09/23 19:29 CT cervical spine wo con Stat CT head/brain wo con Stat XR elbow LT min 3V Stat Discontinued Medications Acetaminophen (Acetaminophen 325 Mg Tablet) 975 mg PO NOW ONE Stop: 06/09/23 19:31 Last Admin: 06/09/23 19:35 Dose: 975 mg Documented By: KF Vital Signs Vital signs: Vital Signs - 8 hr 06/09/23 19:09 06/09/23 19:20 06/09/23 19:30 Temperature 98.0 F Pulse Rate 99 H 103 H 100 H Respiratory Rate 20 Blood Pressure 159/72 H Pulse Oximetry 99 99 98 Oxygen Delivery Method Room Air 06/09/23 19:30 06/09/23 20:05 Temperature Pulse Rate 103 H Respiratory Rate Blood Pressure 172/80 H Pulse Oximetry 97 Oxygen Delivery Method MDM - Fall MDM Narrative Medical decision making narrative: CC: Mechanical fall [place] curb [place], landing on her left side Complicating co-morbidities: Dementia Data collected from: patient, 24 hour caregiver provides most of the history, additional friend is available and corroborate story Social determinants of health that may influence the patients condition: Dementia Medical records reviewed: Primary care notes reviewed Differential considered: Cervical spine injury, shoulder injury, proximal humerus fracture, elbow fracture, anxiety Exam documented above, pertinent findings include: She is anxious areas of point tenderness will be imaged. Because of the cognitive impairment and evidence of hitting her head based on the right-sided cheek swelling will proceed with CT scan. Heart lungs and abdomen are benign Imaging studies independently reviewed: CT head is unremarkable CT cervical spine is reassuring no acute fractures CT elbow does not show any bony abnormalities CT shoulder shows humeral head fracture left side, comminuted with displacement. Consultations: Dr Morin reviewed films in real time, agrees with sling and outpatient follow-up Treatments: Patient is given 975 mg of oral Tylenol and 5 mg of oxycodone for pain control. Procedure: She is placed in a sling, left arm. Placed by nursing staff. Re-evaluated post sling placement and she is neurovascularly intact. The sling is readjusted slightly to allow the sling to truly take pressure off of the upper arm and shoulder for better pain relief. Ice is placed as well. Re-evaluations: Findings are reviewed with the patient and her caregiver. At this point patient does not even remember falling. Discussion: 77-year-old woman with significant dementia has 24 hour care fell and suffered a left proximal humerus fracture. No other injury secondary to her trauma. She is having moderate amount of pain and she is given a dose of oxycodone prior to discharge from hospital and will be given for Percocet to use should she get significantly agitated due to pain over the next 1-2 days. Clearly reviewed use of narcotics in the setting of a 77-year-old woman with dementia in the complications that 1 can see with that. Primary pain control will be ice, sling, Tylenol. The caregiver understands that she needs an outpatient follow-up with [facility] for definitive treatment of the left arm fracture. They are safe for discharge Discharge Plan Departure Patient Disposition: Home Clinical Impression: Memory loss Fracture of proximal end of humerus Qualifiers: Encounter type: initial encounter Fracture type: closed Fracture morphology: other fracture Fracture alignment: displaced Laterality: left Qualified Code(s): S42.292A - Other displaced fracture of upper end of left humerus, initial encounter for closed fracture Fall Qualifiers: Encounter type: initial encounter Qualified Code(s): W19.XXXA - Unspecified fall, initial encounter Instructions: DI for Humeral Fracture Activity Restrictions/Additional Instructions: Thank you for coming in today You did not cause any injury to your brain, there is no neck fractures and your elbow is not fractured. You did break the upper part of your arm very near the shoulder joint. The treatment for this is typically immobilization in a sling and these fractures tend to heal nicely. You do need to follow-up with the orthopedic surgeon for definitive treatment of this fracture. Please call [phone] and let them know that you are in the emergency department on Saturday night, you have a proximal humerus fracture in need a follow-up appointment In the meantime, keep the arm in the sling for comfort. Ice can help with swelling and pain control. This evening we gave her Tylenol as well as an oxycodone. I have also given you for tablets of Percocet which is a combination of Tylenol and oxycodone. This fracture is going to hurt however using narcotics in older patients particularly in the setting of dementia can cause even more problems. Any day that a narcotic is given, please make sure that additional stool softeners are also given. For primary pain control using ice, the sling and 2 Tylenol is going to be most appropriate. If Hope is having trouble settling, becoming more agitated or can not sleep secondary to the pain then you can use 1 of the Percocet that I have sent you home with. If you find that you are getting worse or develop any new symptoms, please feel free to return to the emergency department for further evaluation. Prescriptions: No Action tolterodine [Detrol] 2 mg tablet 2 mg PO BID Qty: 180 1RF (DME) Shower Chair See Rx Instructions .Route .MEDSUPPLY Qty: 1 0RF Rx Instructions: As directed trazodone 50 mg tablet 50 mg PO BEDTIME PRN (Reason: insomnia) Qty: 90 1RF Referrals: Zi Hussein MD [Primary Care Provider] - Stand Alone Forms: Patient Portal/API
--- NOTE | 2023-06-09 19:29 | DI.CT.S_ITS ---
PROCEDURE: CT CERVICAL SPINE WO CON INDICATIONS: fall, midline c spine tenderness TECHNIQUE: Noncontrast 3 mm thick sections acquired from the skull base to the T4 level. Sagittal and coronal reformats were then constructed. For radiation dose reduction, the following was used: automated exposure control, adjustment of mA and/or kV according to patient size. COMPARISON: None. FINDINGS: Image quality: Excellent. Bones: No acute fractures or dislocations. Visualized superior ribs are intact. Soft tissues: Prevertebral soft tissues are normal in thickness. No paravertebral hematomas. No apical pneumothoraces. IMPRESSION: No acute cervical spine fracture or subluxation. Approved by: Mane Juarez M.D. on 06/09/2023 at 19:57
--- NOTE | 2023-06-09 19:29 | DI.RAD.S_ITS ---
PROCEDURE: XR ELBOW LT MIN 3V INDICATIONS: fall, pain, cannot extend fully TECHNIQUE: 3 views of the elbow were acquired. COMPARISON: [facility], CR, XR SHOULDER LT MIN 2V, 06/09/2023, 19:43. FINDINGS: Bones: No fractures or dislocations. No suspicious bony lesions. Soft tissues: No elbow joint effusion. No suspicious soft tissue calcifications. IMPRESSION: No visualized acute fracture or dislocation. However, if clinical concern and/or pain persist, short interval imaging followup in 7-10 days is recommended, as occult injury cannot be definitively excluded. Dictated by: Lidia Kapoor M.D. on 06/09/2023 at 20:25 Approved by: Lidia Kapoor M.D. on 06/09/2023 at 20:25
--- NOTE | 2023-06-09 19:29 | DI.CT.S_ITS ---
PROCEDURE: CT HEAD/BRAIN WO CON INDICATIONS: fall, hit head, altered mental status TECHNIQUE: Noncontrast 4.5 mm thick angled axial sections acquired from the foramen magnum to the vertex, with coronal and sagittal reformats. For radiation dose reduction, the following was used: automated exposure control, adjustment of mA and/or kV according to patient size. COMPARISON: None. FINDINGS: Image quality: Excellent. CSF spaces: Basal cisterns are patent. No extra-axial fluid collections. The ventricles are symmetric in size and shape. Brain: No intracranial bleeds or masses. There is cerebral volume loss for age, with resultant ventricular and sulcal prominence. There are periventricular and deep white matter chronic small vessel ischemic changes. There is intracranial internal carotid artery atherosclerosis. Skull and face: Calvarium and visualized facial bones appear intact, without suspicious lesions. Sinuses: Visualized sinuses and mastoids are clear. IMPRESSION: 1. No acute intracranial pathology. 2. Mild chronic microvascular ischemic changes and mild age related parenchymal volume loss. Approved by: Mane Juarez M.D. on 06/09/2023 at 19:55
[2023-06-09] MEDS: ACETAMINOPHEN 325 MG TABLET 975 MG PO (19:35)
[2023-06-09] MEDS: OXYCODONE/APAP 5/325 PREPACK 1 BOTTLE MISC (23:05)
[2023-06-09] MEDS: OXYCODONE IR 5 MG TABLET PO (23:05)
== END 2023-06-09 23:13 | disposition home or self-care (01) ==
PROVIDERS: Emergency Provider Emergency Medicine; PCP Family Medicine
DX: S42.209A Unspecified fracture of upper end of unspecified humerus, initial encounter for closed fracture (principal); R41.3 Other amnesia; W18.30XA Fall on same level, unspecified, initial encounter
CPT/HCPCS: 70450; 72125; 73030; 73080; 99283; 99284

== ENCOUNTER → 2023-06-10 15:34 | Outpatient (CLI) | payer MEDICARE, MEDICAID, SELFPAY | PROVIDERS: PCP Family Medicine; Visit Provider Urology | DX: N32.81 Overactive bladder (principal); N39.41 Urge incontinence; N32.0 Bladder-neck obstruction; R33.9 Retention of urine, unspecified; N39.8 Other specified disorders of urinary system; R31.21 Asymptomatic microscopic hematuria | CPT/HCPCS: 51702; 87077; 87086; 87186 ==

== ENCOUNTER → 2023-07-06 08:51 | Outpatient (CLI) | payer MEDICARE, MEDICAID, SELFPAY ==
--- NOTE | 2023-07-06 | DI.CT.S_ITS ---
PROCEDURE: CT UE LT WO CON INDICATIONS: Unspecified fracture of upper end of left humerus TECHNIQUE: Noncontrast 1-1.5 mm thick sections acquired from the acromioclavicular joint to the inferior scapula, with coronal and sagittal reformatting. COMPARISON: [facility], CR, XR SHOULDER 2+ VIEWS LEFT, 06/27/2023, 14:48. [facility], CR, XR SHOULDER 2+ VIEWS LEFT, 06/12/2023, 10:42. [facility], CR, XR SHOULDER LT MIN 2V, 06/09/2023, 19:43. FINDINGS: Image quality: Excellent. Bones: Comminuted fracture of the proximal humeral head and neck is again seen. Humeral shaft fracture fragment is mildly impacted. Greater tuberosity component is mildly displaced superiorly by approximately 5 mm and laterally by up to 7 mm. Lesser tuberosity component is comminuted without significant displacement. The articular surface component is mildly rotated. The glenoid and the remainder of the scapula are intact. The clavicle is intact. Visualized left-sided ribs are intact. Soft tissues: Moderate glenohumeral effusion. Rotator cuff musculature is normal in bulk. The articular cartilages, labrum, ligaments, and tendons are not well evaluated with CT. Mild subsegmental atelectasis in the left lower lobe. IMPRESSION: Minimally displaced comminuted fracture of the proximal humeral head and neck as described in the body of the report. Approved by: Mane Juarez M.D. on 07/06/2023 at 21:57
[2023-07-06 09:10] LABS: Appearance Urine UA CLOUDY; Bilirubin Urine UA NEGATIVE (NEGATIVE); Color Urine UA YELLOW; Glucose Urine UA 3+ g/dL (Negative); Ketones Urine UA NEGATIVE (NEGATIVE); Leukocyte Esterase Urine UA NEGATIVE (NEGATIVE); Nitrite Urine UA POSITIVE (Negative); Occult Blood Urine UA 1+ (Negative); Protein Urine UA TRACE (Negative); Specific Gravity Urine UA >=1.030 (1.000-1.035); Urobilinogen Urine UA 0.2 E.U./dL (0.2)
[2023-07-06 09:23] LABS: Add Manual Diff / Slide Review NO; Basophils Absolute Auto 100 /uL (0-100); Basophils Percent Auto 0.4 % (0-2); Eosinophils Absolute Auto 400 /uL (0-450); Eosinophils Percent Auto 3.1 % (2-4); Hematocrit 35.9 % (36-46); Hemoglobin 11.8 g/dL (12.0-16.0); Lymphocytes Absolute Auto 1000 /uL (1100-4500); Lymphocytes Percent Auto 7.7 % (25-40); Mean Corpuscular Hemoglobin 31.1 PG (26-34); Mean Corpuscular Volume 94.4 fL (80-100); Monocytes Absolute Auto 1200 /uL (0-900); Monocytes Percent Auto 8.8 % (3-14); Neutrophils Absolute Auto 10800 /uL (1500-7000); Platelet Count 436 X10^3/uL (150-400); Red Cell Distribution Width 13.5 % (11.6-14.8); White Blood Cell Count 13.6 X10^3/uL (4.5-11.0)
[2023-07-06 09:30] LABS: Amorphous Sediment Urine 1+; Bacteria Urine Many (>30); RBC Urine None Seen (0-5/HPF); Squamous Epithelial Cell Urine 0-1 /HPF (0-5/HPF); WBC Urine 30-100/HPF (0-5/HPF)
[2023-07-06 09:31] LABS: Culture Indicated Urine Specimen Cultured
[2023-07-06 11:23] LABS: BUN Creatinine Ratio 31.2 (6-22); Blood Urea Nitrogen 24 mg/dL (7-17); Calcium 9.8 mg/dL (8.4-10.2); Carbon Dioxide 25 mmol/L (22-32); Chloride 99 mmol/L (98-107); Estimated Glomerular Filt Rate > 60 mL/min (>60); Glucose 236 mg/dL (80-110); HEMOLYSIS < 15 (0-50); Potassium 4.3 mmol/L (3.4-5.1); Sodium 133 mmol/L (137-145)
== END ==
LOC: CT 08:54
PROVIDERS: PCP Family Medicine; Referring Provider Orthopaedic Surgery; Visit Provider Orthopaedic Surgery
DX: S42.295A Other nondisplaced fracture of upper end of left humerus, initial encounter for closed fracture (principal); Z01.818 Encounter for other preprocedural examination; N39.0 Urinary tract infection, site not specified; Z01.812 Encounter for preprocedural laboratory examination; X58.XXXA Exposure to other specified factors, initial encounter
CPT/HCPCS: 36415; 73200; 80048; 81001; 85025; 87077; 87086; 87186; 93005; 93010

== ENCOUNTER → 2023-07-09 15:10 | Outpatient (CLI) | payer MEDICARE, MEDICAID, SELFPAY | PROVIDERS: PCP Family Medicine; Visit Provider Urology | DX: N32.81 Overactive bladder (principal) | CPT/HCPCS: 51702; 87077; 87086; 87186 ==

== ENCOUNTER 2023-07-16 18:25 | Emergency (ER) | payer MEDICARE, MEDICAID, SELFPAY ==
[2023-07-16] VITALS (7 sets, daily range): BP systolic 147–161; BP diastolic 66–85; PULSE 83–91; RESP 16–18; TEMP 36.8; O2SAT 96–97; BMI 35.2
--- NOTE | 2023-07-16 19:35 | PC.NURSE ---
pt brought in by family with near syncope, upon arrival to 2 pt is placed on a stretcher, while starting the IV pt closed her eyes and family immediately tried to arouse her wanting to place an alcohol wipe under her nose stating that is the only thing that brings her out of it, but pt moved her arm when asked and responded to stimuli just continued to keep her eyes closed,
--- NOTE | 2023-07-16 19:46 | ED_ITS ---
HPI - General Adult General Chief complaint: Syncope Stated complaint: feels like she is going to faint Time Seen by Provider: 07/16/23 18:49 Source: patient and other (Marketing Operations Consultant) Limitations: no limitations History of Present Illness HPI narrative: Patient is a 77-year-old female. She is here with her block making machine operator. Patient does have a history of dementia. She has an indwelling suprapubic Fair catheter that was placed by urology for both hygiene and urinary frequency. Marketing Operations Consultant states that she frequently has vasovagal reactions when she gets the urinary catheter replaced. Last replacement was a couple weeks ago. She has a known left proximal humerus fracture. Is scheduled to have a shoulder replacement in the next couple weeks. She had labs and urine drawn a couple days ago but does not know the results of this. Apparently earlier today per the caretakers response the patient had an episode where she ?passed out? block making machine operator states it was very similar to when she is passed out in the past when she has had her urinary catheter replaced. Marketing Operations Consultant states the patient has been very ?fatigued? recently. Related Data Previous Rx's Medication Instructions Recorded Shower Chair #1 ea 04/09/23 oxycodone-acetaminophen 5 mg-325 1 tab PO Q6H PRN pain #112 tabs 07/04/23 mg tablet (Percocet) trazodone 50 mg tablet 100 mg (2 x 50 mg) PO BEDTIME PRN 07/04/23 insomnia #180 tabs cephalexin 500 mg capsule 500 mg PO BID 7 days #14 caps 07/16/23 Allergies Allergy/AdvReac Type Severity Reaction Status Date / Time No Known Drug Allergies Allergy Verified 06/10/23 14:55 Review of Systems Review of Systems Narrative: Provided mostly by block making machine operator Constitutional Constitutional: Reports system reviewed and no additional complaints, except as documented Respiratory Respiratory: Reports system reviewed and no additional complaints, except as documented Neurologic Neurologic: Reports system reviewed and no additional complaints, except as documented Hematologic/Lymphatic On Anticoagulants: No Patient History Medical History Dementia Family History Family/Other Hyperlipidemia Social History marital status: number of children: 0 Smoking Status: Never smoker alcohol intake: never Type(s) of exercise: walking frequency: 5-6 times per week Smoking Status: Never smoker Substance Use Type: does not use Exam Initial Vital Signs Initial Vital Signs: Vital Signs Temperature 98.3 F 07/16/23 18:29 Pulse Rate 88 07/16/23 18:29 Respiratory Rate 16 07/16/23 18:29 Blood Pressure 147/66 H 07/16/23 18:29 Pulse Oximetry 97 07/16/23 18:29 Oxygen Delivery Method Room Air 07/16/23 18:29 HENMT Head: normal to inspection and normocephalic Resp Effort & Inspection: normal respiratory effort Auscultation: clear to auscultation bilaterally Cardio Rate: regular rate Rhythm: regular rhythm GI Inspection: normal to inspection and non-distended Palpation: soft Extrem General: normal to inspection Course Orders Ordered: ED Orders 07/16/23 18:50 EKG-12 Lead Stat 07/16/23 19:30 Complete Blood Count AUTO DIFF Stat Comprehensive Metabolic Panel Stat Lipase Stat 07/16/23 20:00 Urine Culture Stat Urine Microscopic Stat Discontinued Medications Cephalexin HCl (Cephalexin 250 Mg Capsule) 500 mg PO NOW ONE Stop: 07/16/23 20:47 Last Admin: 07/16/23 21:07 Dose: 500 mg Documented By: ALBERTINA Sodium Chloride (Normal Saline 0.9%) 1,000 mls @ 500 mls/hr IV BOLUS ONE Stop: 07/16/23 23:53 Last Infusion: 07/17/23 00:08 Dose: Infused Documented By: Admin: 07/16/23 22:10 Dose: 500 mls/hr Documented By: ALBERTINA Vital Signs Vital signs: Vital Signs - 8 hr 07/16/23 19:29 07/16/23 19:30 07/16/23 19:30 Pulse Rate 88 91 H Respiratory Rate Blood Pressure 161/85 H Pulse Oximetry 96 96 Oxygen Delivery Method 07/16/23 20:00 07/16/23 20:01 07/16/23 20:01 Pulse Rate 83 86 Respiratory Rate 18 Blood Pressure 157/70 H Pulse Oximetry 97 97 Oxygen Delivery Method 07/16/23 20:30 07/16/23 20:31 07/16/23 20:31 Pulse Rate 87 84 Respiratory Rate 18 Blood Pressure 159/71 H Pulse Oximetry 97 97 Oxygen Delivery Method 07/17/23 00:00 Pulse Rate 85 Respiratory Rate 18 Blood Pressure 162/91 H Pulse Oximetry 97 Oxygen Delivery Method Room Air Medical Decision Making Medical Records Medical records reviewed: Yes I reviewed the patient's medical records. Lab Data Lab results reviewed: Yes I reviewed the patient's lab results. 07/16/23 19:30 07/16/23 19:30 Labs: Lab Results 07/16/23 07/16/23 Range/Units 19:30 20:00 WBC 12.1 H (4.5-11.0) X10^3/uL RBC 4.24 (4.0-5.2) X10^6/uL Hgb 13.4 (12.0-16.0) g/dL Hct 40.0 (36-46) % MCV 94.4 (80-100) fL MCH 31.5 (26-34) PG MCHC 33.4 (30-36) % RDW 13.5 (11.6-14.8) % Plt Count 407 H (150-400) X10^3/uL Neut % (Auto) 75.6 H (50-75) % Lymph % (Auto) 13.4 L (25-40) % [place] % (Auto) 7.9 (3-14) % Eos % (Auto) 2.6 (2-4) % Baso % (Auto) 0.5 (0-2) % Neut # (Auto) 9200 H (9111-0225) /uL Lymph # (Auto) 1600 (4883-8735) /uL [place] # (Auto) 1000 H (0-900) /uL Eos # (Auto) 300 (0-450) /uL Baso # (Auto) 100 (0-100) /uL Sodium 135 L (137-145) mmol/L Potassium 4.0 (3.4-5.1) mmol/L Chloride 99 (98-107) mmol/L Carbon Dioxide 26 (22-32) mmol/L BUN 19 H (7-17) mg/dL Creatinine 0.72 (0.52-1.04) mg/dL Estimated GFR > 60 (>60) mL/min BUN/Creatinine Ratio 26.4 H (6-22) Glucose 104 (80-110) mg/dL Calcium 9.8 (8.4-10.2) mg/dL Total Bilirubin 0.5 (0.2-1.3) mg/dL AST 29 (14-36) IU/L ALT 26 (<35) IU/L Alkaline Phosphatase 112 (38-126) U/L Total Protein 8.2 (6.3-8.2) g/dL Albumin 4.2 (3.5-5.0) g/dL Globulin 4.0 (1.7-4.1) g/dL Albumin/Globulin Ratio 1.1 (1.0-2.8) Lipase 60 (23-300) U/L Urine RBC 1-5/hpf (0-5/HPF) Urine WBC 30-100/hpf H (0-5/HPF) Ur Squamous Epith Cells 0-1 /hpf (0-5/HPF) Amorphous Sediment 4+ Urine Bacteria Many (>30) H (None) WBC Casts 1-5/lpf H (None) Ur Culture Indicated? Specimen cultured Urine Dip Bedside Urine Glucose Negative Bedside Urine Bilirubin - Negative Bedside Urine Ketone - Negative Urine Specific [place] 1.025 Bedside Urine Occult Blood ++ Bedside Urine pH 6.0 Bedside Urine Protein +/- 15 Bedside Urine Leukocytes +/- 15 Esterase Point of care testing: Urine Dip Bedside Urine Glucose Negative Bedside Urine Bilirubin - Negative Bedside Urine Ketone - Negative Urine Specific [place] 1.025 Bedside Urine Occult Blood ++ Bedside Urine pH 6.0 Bedside Urine Protein +/- 15 Bedside Urine Leukocytes +/- 15 Esterase ECG Data Attestation: I personally reviewed and interpreted this ECG as follows: Interpretation: Sinus rhythm Ventricular rate 84 Left axis deviation Normal QRS Normal QTC No ST T wave changes MDM Narrative Medical decision making narrative: Review of the medical record shows that the urinalysis that was performed several days ago is nitrite positive. Prior to that her urinalysis did not contain nitrite. She does have leukocytosis today. She is at her baseline neurologic exam per block making machine operator. She did tolerate a dose of Keflex. Initially when we tried to stand the patient at bedside she stated that she felt like she was very lightheaded. She then was given fluids. Afterwards she seemed to improve quite a bit. She was able to stand and ambulate at her baseline. Plan will be is to discharge the patient home with antibiotics. Marketing Operations Consultant was given care instructions and return precautions. She expressed understanding and agreement with plan. Discharge Plan Departure Patient Disposition: Home Clinical Impression: Urinary tract infection Instructions: DI for Urinary Tract Infection (UTI) Activity Restrictions/Additional Instructions: A prescription for antibiotics was sent to [facility] here in [place]. Recommend that she start taking that medicine as directed. Recommend that you contact her primary doctor for a follow-up. Return to the emergency department for new symptoms Prescriptions: New cephalexin 500 mg capsule 500 mg PO BID 7 Days Qty: 14 0RF No Action (DME) Shower Chair See Rx Instructions .Route .MEDSUPPLY Qty: 1 0RF Rx Instructions: As directed oxycodone-acetaminophen [Percocet] 5-325 mg tablet 1 tab PO Q6H PRN (Reason: pain) Qty: 112 0RF Rx Instructions: must last 28 days. Release date 07/04/23. trazodone 50 mg tablet 100 mg PO BEDTIME PRN (Reason: insomnia) Qty: 180 1RF Referrals: Zi Hussein MD [Primary Care Provider] - Stand Alone Forms: Patient Portal/API
[2023-07-16 19:49] LABS: Add Manual Diff / Slide Review NO; Basophils Absolute Auto 100 /uL (0-100); Basophils Percent Auto 0.5 % (0-2); Eosinophils Absolute Auto 300 /uL (0-450); Eosinophils Percent Auto 2.6 % (2-4); Hemoglobin 13.4 g/dL (12.0-16.0); Lymphocytes Absolute Auto 1600 /uL (1100-4500); Lymphocytes Percent Auto 13.4 % (25-40); Mean Corpuscular HGB Conc 33.4 % (30-36); Mean Corpuscular Hemoglobin 31.5 PG (26-34); Mean Corpuscular Volume 94.4 fL (80-100); Monocytes Absolute Auto 1000 /uL (0-900); Monocytes Percent Auto 7.9 % (3-14); Neutrophils Absolute Auto 9200 /uL (1500-7000); Neutrophils Percent Auto 75.6 % (50-75); Platelet Count 407 X10^3/uL (150-400); Red Blood Cell Count 4.24 X10^6/uL (4.0-5.2); Red Cell Distribution Width 13.5 % (11.6-14.8); White Blood Cell Count 12.1 X10^3/uL (4.5-11.0)
[2023-07-16 19:58] LABS: Alanine Aminotransferase 26 IU/L (<35); Albumin 4.2 g/dL (3.5-5.0); Albumin Globulin Ratio 1.1 (1.0-2.8); Alkaline Phosphatase 112 U/L (38-126); Aspartate Aminotransferase 29 IU/L (14-36); BUN Creatinine Ratio 26.4 (6-22); Bilirubin Total 0.5 mg/dL (0.2-1.3); Blood Urea Nitrogen 19 mg/dL (7-17); Calcium 9.8 mg/dL (8.4-10.2); Carbon Dioxide 26 mmol/L (22-32); Chloride 99 mmol/L (98-107); Estimated Glomerular Filt Rate > 60 mL/min (>60); Glucose 104 mg/dL (80-110); HEMOLYSIS < 15 (0-50); Lipase 60 U/L (23-300); Sodium 135 mmol/L (137-145); Total Protein 8.2 g/dL (6.3-8.2)
[2023-07-16 20:30] LABS: Amorphous Sediment Urine 4+; Bacteria Urine Many (>30); Culture Indicated Urine Specimen Cultured; RBC Urine 1-5/HPF (0-5/HPF); Squamous Epithelial Cell Urine 0-1 /HPF (0-5/HPF); WBC Urine 30-100/HPF (0-5/HPF); White Blood Cell Casts Urine 1-5/LPF
[2023-07-16] MEDS: cephALEXin 250 MG CAPSULE 500 MG PO (21:07)
[2023-07-16] MEDS: SODIUM CHLORIDE 0.9% 1,000 ML 500 ML IV (22:10)
[2023-07-17] VITALS: BP 162/91; PULSE 85; RESP 18; O2SAT 97
== END 2023-07-17 00:10 | disposition home or self-care (01) ==
PROVIDERS: Emergency Provider Emergency Medicine; PCP Family Medicine
DX: N39.0 Urinary tract infection, site not specified (principal)
CPT/HCPCS: 36415; 80053; 81003; 81015; 83690; 85025; 87077; 87086; 87186; 93005; 96360; 96361; 99284

== ENCOUNTER 2023-07-20 18:29 | Inpatient (IN) | payer MEDICARE, MEDICAID, SELFPAY ==
[2023-07-20] VITALS (19 sets, daily range): BP systolic 131–148; BP diastolic 61–69; PULSE 85–115; RESP 18–38; TEMP 37.1; O2SAT 92–98; BMI 35.2
--- NOTE | 2023-07-20 18:57 | DI.RAD.S_ITS ---
PROCEDURE: XR CHEST 1V INDICATIONS: suspected sepsis TECHNIQUE: One view of the chest was acquired. COMPARISON: [facility], CR, XR CHEST 1V, 10/30/2022, 14:33. FINDINGS: Surgical changes and devices: None. Lungs and pleura: Lungs are clear. No pleural effusions or pneumothorax. Mediastinum: Mediastinal contours appear normal. Heart size is normal. Bones and chest wall: No suspicious bony lesions. Overlying soft tissues appear unremarkable. IMPRESSION: No acute cardiopulmonary abnormality is seen. Dictated by: Jared Hdez M.D. on 07/20/2023 at 19:31 Approved by: Jared Hdez M.D. on 07/20/2023 at 19:32
[2023-07-20 19:10] LABS: Add Manual Diff / Slide Review NO; Basophils Absolute Auto 100 /uL (0-100); Basophils Percent Auto 0.6 % (0-2); Eosinophils Absolute Auto 300 /uL (0-450); Hematocrit 39.8 % (36-46); Hemoglobin 13.2 g/dL (12.0-16.0); Lymphocytes Absolute Auto 1600 /uL (1100-4500); Lymphocytes Percent Auto 11.5 % (25-40); Mean Corpuscular HGB Conc 33.1 % (30-36); Mean Corpuscular Volume 93.6 fL (80-100); Monocytes Absolute Auto 900 /uL (0-900); Monocytes Percent Auto 6.4 % (3-14); Neutrophils Absolute Auto 11000 /uL (1500-7000); Neutrophils Percent Auto 79.5 % (50-75); Platelet Count 380 X10^3/uL (150-400); Red Blood Cell Count 4.25 X10^6/uL (4.0-5.2); Red Cell Distribution Width 13.7 % (11.6-14.8); White Blood Cell Count 13.8 X10^3/uL (4.5-11.0)
[2023-07-20] MEDS: SODIUM CHLORIDE 0.9% 1,000 ML 1000 ML IV (19:11)
--- NOTE | 2023-07-20 19:34 | PC.NURSE ---
Pt's o2 saturation at 92% room air. Patient placed on NC and o2 increased, see vitals. Provider notified.
[2023-07-20 19:49] LABS: HEMOLYSIS < 15 (0-50)
[2023-07-20 19:50] LABS: Prothrombin Time 11.2 SECONDS (9.4-12.5)
[2023-07-20 19:53] LABS: PTT Partial Thromboplastin Tim 26 SECONDS (25.1-36.5)
[2023-07-20 19:54] LABS: Alanine Aminotransferase 23 IU/L (<35); Albumin 3.9 g/dL (3.5-5.0); Albumin Globulin Ratio 1.1 (1.0-2.8); Alkaline Phosphatase 101 U/L (38-126); Aspartate Aminotransferase 27 IU/L (14-36); BUN Creatinine Ratio 28.2 (6-22); Bilirubin Total 0.4 mg/dL (0.2-1.3); Blood Urea Nitrogen 22 mg/dL (7-17); Calcium 9.6 mg/dL (8.4-10.2); Carbon Dioxide 27 mmol/L (22-32); Chloride 99 mmol/L (98-107); Creatine Kinase 31 U/L (30-135); Estimated Glomerular Filt Rate > 60 mL/min (>60); Globulin 3.6 g/dL (1.7-4.1); Glucose 184 mg/dL (80-110); Lipase 71 U/L (23-300); Potassium 3.8 mmol/L (3.4-5.1); Sodium 134 mmol/L (137-145); Total Protein 7.5 g/dL (6.3-8.2)
[2023-07-20 20:04] LABS: Lactate (Lactic Acid) 2.4 mmol/L (0.7-2.1)
[2023-07-20 20:06] LABS: Troponin I < 0.012 ng/mL (0.01-0.034)
--- NOTE | 2023-07-20 20:06 | DI.CT.S_ITS ---
PROCEDURE: CT HEAD/BRAIN WO CON INDICATIONS: decreased responsiveness TECHNIQUE: Noncontrast 4.5 mm thick angled axial sections acquired from the foramen magnum to the vertex, with coronal and sagittal reformats. For radiation dose reduction, the following was used: automated exposure control, adjustment of mA and/or kV according to patient size. COMPARISON: [facility], CT, CT HEAD/BRAIN WO CON, 06/09/2023, 19:42. FINDINGS: Image quality: Diagnostic. CSF spaces: Basal cisterns are patent. No extra-axial fluid collections. The ventricles are symmetric in size and shape. Brain: No intracranial bleeds or masses. There is cerebral volume loss for age, with resultant ventricular and sulcal prominence. There are periventricular and deep white matter chronic small vessel ischemic changes. There is intracranial internal carotid artery atherosclerosis. Skull and face: Calvarium and visualized facial bones appear intact, without suspicious lesions. Sinuses: Visualized sinuses and mastoids are clear. IMPRESSION: 1. No acute intracranial abnormalities. 2. Cerebral volume loss and chronic microvascular ischemic changes. Dictated by: Jimi Puga M.D. on 07/20/2023 at 20:16 Approved by: Jimi Puga M.D. on 07/20/2023 at 20:17
[2023-07-20 20:17] LABS: Appearance Urine UA CLEAR; Bilirubin Urine UA NEGATIVE (NEGATIVE); Color Urine UA YELLOW; Glucose Urine UA TRACE g/dL (Negative); Ketones Urine UA NEGATIVE (NEGATIVE); Leukocyte Esterase Urine UA TRACE (NEGATIVE); Nitrite Urine UA POSITIVE (Negative); Occult Blood Urine UA 2+ (Negative); Protein Urine UA NEGATIVE (Negative); Specific Gravity Urine UA 1.015 (1.000-1.035); Urobilinogen Urine UA 0.2 E.U./dL (0.2)
[2023-07-20 20:26] LABS: Bacteria Urine Moderate (10-30); Culture Indicated Urine Specimen Cultured; RBC Urine 1-5/HPF (0-5/HPF); Squamous Epithelial Cell Urine None Seen (0-5/HPF); WBC Urine 5-10/HPF (0-5/HPF)
--- NOTE | 2023-07-20 20:27 | ED.GENADULT ---
HPI - General Adult General Chief complaint: Weakness Stated complaint: passing out all day Time Seen by Provider: 07/20/23 18:51 Mode of arrival: Wheelchair History of Present Illness HPI narrative: 77-year-old woman who lives on [facility] with advanced dementia and full-time caregivers presents with altered mental status. She was seen on June 09 with a shoulder fracture and is scheduled for surgical intervention in July. She was seen on July 16 with concerns for a urinary tract infection was treated with Keflex. She does have a suprapubic catheter in place. Her family does not note fevers but they do note that she has not been as interactive and she will have episodes where she seems to be ?passing out? and does not respond. One of these episodes was seen by nursing staff in the emergency department and she simply seems to be closing her eyes and within minutes will become more interactive. There was no seizure-like activity and no rhythm abnormalities with these brief episodes. Her family notes that her baseline dementia does seem worse over the last 48 hours and she is increasingly weak. They are concerned that her infection is worse or she is having some other problem that needs to be identified. There are no reports of cough, no obvious pain behaviors and the patient has enough cognitive deficit that additional review of systems is not obtainable. Related Data Previous Rx's Medication Instructions Recorded Shower Chair #1 ea 04/09/23 oxycodone-acetaminophen 5 mg-325 1 tab PO Q6H PRN pain #112 tabs 07/04/23 mg tablet (Percocet) trazodone 50 mg tablet 100 mg (2 x 50 mg) PO BEDTIME PRN 07/04/23 insomnia #180 tabs cephalexin 500 mg capsule 500 mg PO BID 7 days #14 caps 07/16/23 Allergies Allergy/AdvReac Type Severity Reaction Status Date / Time No Known Drug Allergies Allergy Verified 07/20/23 18:49 Review of Systems Review of Systems Narrative: Pertinent positive and negative findings as per HPI Patient History Medical History Dementia Family History Family/Other Hyperlipidemia Social History marital status: number of children: 0 Smoking Status: Never smoker alcohol intake: never Type(s) of exercise: walking frequency: 5-6 times per week Smoking Status: Never smoker Substance Use Type: does not use Exam Initial Vital Signs Initial Vital Signs: Vital Signs Temperature 98.8 F 07/20/23 18:46 Pulse Rate 115 H 07/20/23 18:46 Respiratory Rate 18 07/20/23 18:46 Blood Pressure 146/65 H 07/20/23 18:46 Pulse Oximetry 96 07/20/23 18:46 Oxygen Delivery Method Room Air 07/20/23 18:46 General: Chronically ill-appearing, in no acute distress. HEENT: Moist mucous membranes, normal sclera with reactive pupils, Neck: No JVD, supple Respiratory: Lungs are clear to auscultation, no wheezing no rales no rhonchi. Full and symmetrical air movement Cardiac: Regular rate and rhythm no murmurs no bruits Abdomen: Soft, nontender, good bowel tones, no flank pain. Suprapubic catheter in place and site is clean and dry Skin: Warm and dry, no rashes Neurologic: She is moving all extremities Extremities: No trauma, well perfused, no lower extremity edema Psych: Flat affect, cognitive deficits Course Orders Ordered: ED Orders 07/20/23 18:55 Complete Blood Count AUTO DIFF Stat 07/20/23 18:57 XR chest 1V Stat EKG-12 Lead Stat RT Consult Eval and Treat NOW 07/20/23 19:16 Respiratory Panel (Film Array) Stat 07/20/23 19:20 Blood Culture Stat Comprehensive Metabolic Panel Stat Lactate (Lactic Acid) Stat Lipase Stat PTT Partial Thromboplastin Wing Stat Procalcitonin Stat Prothrombin Time INR Stat Troponin & CK Cardiac Panel Stat 07/20/23 20:06 CT head/brain wo con Stat 07/20/23 20:10 Urinalysis and Microscopic Stat Urine Culture Stat Sodium Chloride (Normal Saline 0.9%) 1,000 mls @ 1,000 mls/hr IV BOLUS PRN PRN Reason: Fluid replacement Ondansetron HCl (Ondansetron 4 Mg/2 Ml Inj) 4 mg IV NOW PRN PRN Reason: Nausea And Vomiting Ondansetron HCl (Ondansetron 4 Mg Odt) 4 mg SL NOW PRN PRN Reason: Nausea And Vomiting Discontinued Medications Sodium Chloride (Normal Saline 0.9%) 1,000 mls @ 1,000 mls/hr IV BOLUS ONE Stop: 07/20/23 19:56 Last Infusion: 07/20/23 21:22 Dose: Infused Documented By: Admin: 07/20/23 19:11 Dose: 1,000 mls/hr Documented By: SHELBY Ceftriaxone Sodium 2,000 mg/ (Sodium Chloride) 100 mls @ 200 mls/hr IV NOW ONE Stop: 07/20/23 20:29 Last Admin: 07/20/23 21:15 Dose: 200 mls/hr Documented By: JOSEF Vital Signs Vital signs: Vital Signs - 8 hr 07/20/23 18:46 07/20/23 18:51 07/20/23 18:53 Temperature 98.8 F Pulse Rate 115 H 109 H Respiratory Rate 18 25 H Blood Pressure 146/65 H 148/65 H Pulse Oximetry 96 96 Oxygen Delivery Method Room Air Oxygen Flow Rate 07/20/23 18:53 07/20/23 19:00 07/20/23 19:10 Temperature Pulse Rate 108 H 104 H 99 H Respiratory Rate 38 H 32 H 22 Blood Pressure Pulse Oximetry 96 97 Oxygen Delivery Method Room Air Oxygen Flow Rate 07/20/23 19:20 07/20/23 19:30 07/20/23 19:31 Temperature Pulse Rate 97 H 97 H Respiratory Rate 29 H 27 H Blood Pressure 131/69 Pulse Oximetry 94 92 92 Oxygen Delivery Method Room Air Room Air Room Air Oxygen Flow Rate 07/20/23 19:31 07/20/23 19:32 07/20/23 19:35 Temperature Pulse Rate 96 H Respiratory Rate 24 Blood Pressure 134/64 Pulse Oximetry 92 98 Oxygen Delivery Method Nasal Cannula Oxygen Flow Rate 2 07/20/23 19:35 07/20/23 19:41 Temperature Pulse Rate 92 H Respiratory Rate 20 Blood Pressure Pulse Oximetry 97 94 Oxygen Delivery Method Nasal Cannula Nasal Cannula Oxygen Flow Rate 2 1 Medical Decision Making Lab Data 07/20/23 18:55 07/20/23 19:20 Labs: Lab Results 07/20/23 07/20/23 07/20/23 Range/Units 18:55 19:16 19:20 WBC 13.8 H (4.5-11.0) X10^3/uL RBC 4.25 (4.0-5.2) X10^6/uL Hgb 13.2 (12.0-16.0) g/dL Hct 39.8 (36-46) % MCV 93.6 (80-100) fL MCH 31.0 (26-34) PG MCHC 33.1 (30-36) % RDW 13.7 (11.6-14.8) % Plt Count 380 (150-400) X10^3/uL Neut % (Auto) 79.5 H (50-75) % Lymph % (Auto) 11.5 L (25-40) % [place] % (Auto) 6.4 (3-14) % Eos % (Auto) 2.0 (2-4) % Baso % (Auto) 0.6 (0-2) % Neut # (Auto) 08980 H (6903-2586) /uL Lymph # (Auto) 1600 (2745-3436) /uL [place] # (Auto) 900 (0-900) /uL Eos # (Auto) 300 (0-450) /uL Baso # (Auto) 100 (0-100) /uL PT 11.2 (9.4-12.5) SECONDS INR 1.0 (0.9-1.3) APTT 26 (25.1-36.5) SECONDS Sodium 134 L (137-145) mmol/L Potassium 3.8 (3.4-5.1) mmol/L Chloride 99 (98-107) mmol/L Carbon Dioxide 27 (22-32) mmol/L BUN 22 H (7-17) mg/dL Creatinine 0.78 (0.52-1.04) mg/dL Estimated GFR > 60 (>60) mL/min BUN/Creatinine Ratio 28.2 H (6-22) Glucose 184 H (80-110) mg/dL Lactate 2.4 H (0.7-2.1) mmol/L Calcium 9.6 (8.4-10.2) mg/dL Total Bilirubin 0.4 (0.2-1.3) mg/dL AST 27 (14-36) IU/L ALT 23 (<35) IU/L Alkaline Phosphatase 101 (38-126) U/L Total Creatine Kinase 31 (30-135) U/L Troponin I < 0.012 (0.01-0.034) ng/mL Total Protein 7.5 (6.3-8.2) g/dL Albumin 3.9 (3.5-5.0) g/dL Globulin 3.6 (1.7-4.1) g/dL Albumin/Globulin Ratio 1.1 (1.0-2.8) Lipase 71 (23-300) U/L Procalcitonin 0.06 (<0.5) ng/mL Urine Color Urine Appearance Urine pH (4.5-8.0) Ur Specific [place] (1.000-1.035) Urine Protein (Negative) Urine Glucose (UA) (Negative) g/dL Urine Ketones (NEGATIVE) Urine Occult Blood (Negative) Urine Nitrate (Negative) Urine Bilirubin (NEGATIVE) Urine Urobilinogen (0.2) E.U./dL Ur Leukocyte Esterase (NEGATIVE) Urine RBC (0-5/HPF) Urine WBC (0-5/HPF) Ur Squamous Epith Cells (0-5/HPF) Urine Bacteria (None) Ur Culture Indicated? Chlamy pneumoniae PCR Not detected (Not Detect) Adenovirus (PCR) Not detected (Not Detect) B.parapertussis DNA PCR Not detected (Not Detecte) Coronavirus OC43 (PCR) Not detected (Not Detect) Coronavirus HKU1 (PCR) Not detected (Not Detect) Coronavirus 229E (PCR) Not detected (Not Detect) SARS-CoV-2 (PCR) Not detected (Not Detecte) Coronavirus NL63 (PCR) Not detected (Not Detect) Human Metapneumovir PCR Not detected (Not Detect) Influenza Type A (PCR) Not detected (Not Detect) Influenza Type B (PCR) Not detected (Not Detect) M. pneumoniae (PCR) Not detected (Not Detect) Parainfluenza 1 (PCR) Not detected (Not Detect) Parainfluenza 2 (PCR) Not detected (Not Detect) Parainfluenza 3 (PCR) Not detected (Not Detect) Parainfluenza 4 (PCR) Not detected (Not Detect) RSV (PCR) Not detected (Not Detect) Entero/Rhino (PCR) Not detected (Not Detect) 07/20/23 07/20/23 Range/Units 20:10 21:28 WBC (4.5-11.0) X10^3/uL RBC (4.0-5.2) X10^6/uL Hgb (12.0-16.0) g/dL Hct (36-46) % MCV (80-100) fL MCH (26-34) PG MCHC (30-36) % RDW (11.6-14.8) % Plt Count (150-400) X10^3/uL Neut % (Auto) (50-75) % Lymph % (Auto) (25-40) % [place] % (Auto) (3-14) % Eos % (Auto) (2-4) % Baso % (Auto) (0-2) % Neut # (Auto) (9897-7949) /uL Lymph # (Auto) (5356-1854) /uL [place] # (Auto) (0-900) /uL Eos # (Auto) (0-450) /uL Baso # (Auto) (0-100) /uL PT (9.4-12.5) SECONDS INR (0.9-1.3) APTT (25.1-36.5) SECONDS Sodium (137-145) mmol/L Potassium (3.4-5.1) mmol/L Chloride (98-107) mmol/L Carbon Dioxide (22-32) mmol/L BUN (7-17) mg/dL Creatinine (0.52-1.04) mg/dL Estimated GFR (>60) mL/min BUN/Creatinine Ratio (6-22) Glucose (80-110) mg/dL Lactate 0.9 (0.7-2.1) mmol/L Calcium (8.4-10.2) mg/dL Total Bilirubin (0.2-1.3) mg/dL AST (14-36) IU/L ALT (<35) IU/L Alkaline Phosphatase (38-126) U/L Total Creatine Kinase (30-135) U/L Troponin I (0.01-0.034) ng/mL Total Protein (6.3-8.2) g/dL Albumin (3.5-5.0) g/dL Globulin (1.7-4.1) g/dL Albumin/Globulin Ratio (1.0-2.8) Lipase (23-300) U/L Procalcitonin (<0.5) ng/mL Urine Color Yellow Urine Appearance Clear Urine pH 6.0 (4.5-8.0) Ur Specific [place] 1.015 (1.000-1.035) Urine Protein Negative (Negative) Urine Glucose (UA) Trace H (Negative) g/dL Urine Ketones Negative (NEGATIVE) Urine Occult Blood 2+ H (Negative) Urine Nitrate Positive H (Negative) Urine Bilirubin Negative (NEGATIVE) Urine Urobilinogen 0.2 (0.2) E.U./dL Ur Leukocyte Esterase Trace H (NEGATIVE) Urine RBC 1-5/hpf (0-5/HPF) Urine WBC 5-10/hpf H (0-5/HPF) Ur Squamous Epith Cells None seen (0-5/HPF) Urine Bacteria Moderate (10-30) H (None) Ur Culture Indicated? Specimen cultured Chlamy pneumoniae PCR (Not Detect) Adenovirus (PCR) (Not Detect) B.parapertussis DNA PCR (Not Detecte) Coronavirus OC43 (PCR) (Not Detect) Coronavirus HKU1 (PCR) (Not Detect) Coronavirus 229E (PCR) (Not Detect) SARS-CoV-2 (PCR) (Not Detecte) Coronavirus NL63 (PCR) (Not Detect) Human Metapneumovir PCR (Not Detect) Influenza Type A (PCR) (Not Detect) Influenza Type B (PCR) (Not Detect) M. pneumoniae (PCR) (Not Detect) Parainfluenza 1 (PCR) (Not Detect) Parainfluenza 2 (PCR) (Not Detect) Parainfluenza 3 (PCR) (Not Detect) Parainfluenza 4 (PCR) (Not Detect) RSV (PCR) (Not Detect) Entero/Rhino (PCR) (Not Detect) Point of Care Testing Glucose POC 230 Point of care testing: Point of Care Testing Glucose POC 230 MDM Narrative Medical decision making narrative: CC: Altered mental status Complicating co-morbidities: Advanced dementia, has full-time caregivers Data collected from: patient, daughter and granddaughter Social determinants of health that may influence the patients condition: They live on [facility] Medical records reviewed: Previous ER notes, family practice notes with events over the last month are all reviewed. Microbiology results with urinary tract infection reviewed Differential considered: Sepsis, UTI, stroke, seizure Exam documented above, pertinent findings include: Patient does seem fatigued clinical exam is not significantly revealing. She has no pain behaviors with exam Lab Test results independently reviewed as above. Pertinent findings: CBC shows a mild leukocytosis at 13.8 with neutrophils 79.5% Chemistries are notable for appropriate renal function, slightly elevated glucose at 184, Initial lactic acid is 2.4 and repeat after a L of fluid is 0.9 Troponin is not detectable Lipase is unremarkable Procalcitonin is undetectable Imaging studies independently reviewed: CT scan of the head shows no acute changes Chest x-ray does not show any infiltrates, cardiomegaly or congestive heart failure Urine specimen collected on July 09 shows Citrobacter and Klebsiella, repeated on July 16 shows Citrobacter. Both of these are resistant to Keflex, with which she is currently treated, but are otherwise sensitive to all antibiotics tested Consultations:Dr Garcia, hospitalist will admit Treatments: She is started on ceftriaxone, 1 L of fluid is given Discussion: 77-year-old woman with progressive dementia, increasingly altered mental status and weakness. She does appear to have a urinary tract infection based on today's urine sample and based on samples from the in the it looks like she at least will grow Citrobacter freundii and may end up growing Klebsiella. Neither of these are sensitive to cephalexin which she has been on. At this point she is meeting criteria for sepsis but not septic shock. Ceftriaxone is added and will plan on hospital admission due to her progressive symptoms, weakness and worsening mental status. Her family is very attentive and have every intention of having her home when she is strong enough to participate with transfers and travel home. Additional Information: Severe Sepsis Criteria [x ] bacterial source of infection suspected and documented [ x] 2 SIRS Criteria met [ x ] HR >90 [ ] RR >20 [ ] fever or hypothermia [ x ] leukocytosis/leukopenia/bandemia [ ] Evidence of at least 1 organ system dysfunction [ x ] Lactate > 2 [ ] BP < 90 or MAP <65, >40mm decrease from normal baseline [ ] Creat > 2.0 [ ] T. Bili > 2.0 [ ] platelet count < 100k [x ] altered mental status [ ] mechanical ventilation [ ] provider documentation of severe sepsis Severe Sepsis Determination. the patient has been screened and [ x ] DOES meet criteria for severe sepsis [ ] DOES NOT meet criteria for severe sepsis Goal directed treatment Within 3 hours [ x ] blood cx drawn prior to abx [ x] broad spectrum abx started [x ] lactic acid level checked [ x] lactic redrawn within 6 hours if >2.0 Septic Shock Criteria [ ] lactic > 4 at any time [ ] SBP ,90 or MAP , 65 [ ] documentation of septic shock Time Septic Shock diagnosed: [ ] Septic Shock Determination. the patient has been screened and [ ] DOES meet criteria for septic shock [ x] DOES NOT meet criteria for septic shock Goal directed therapy within 3 hours of septic shock or initial hypotension [ ] 30ml/kg fluid [ ] ABW used [ ] IBW (33.6) used due to BMI > 30 [ ] patient or advocate declining fluid administration after shared decision making conversation Clinical reason for NOT initiating fluid bolus: Within 6 hours (if continued hypotension after fluids or initial lactate >4) [ ] repeat volume status and tissue perfusion assessment documented after fluid bolus was completed at [Date/Time] Must include vital signs, cardiopulmonary exam, capillary refill, peripheral pulse evaluation, skin exam [ ] Initiate vasopressor therapy if persistent hypotension after adequate fluid bolus Discharge Plan Departure Patient Disposition: Home Clinical Impression: Acute alteration in mental status Sepsis Qualifiers: Sepsis type: sepsis due to unspecified organism Sepsis acute organ dysfunction status: with acute organ dysfunction Severe sepsis acute organ dysfunction type: unspecified Severe sepsis shock status: without septic shock Qualified Code(s): A41.9 - Sepsis, unspecified organism Urinary tract infection Qualifiers: Urinary tract infection type: acute cystitis Hematuria presence: with hematuria Qualified Code(s): N30.01 - Acute cystitis with hematuria Dementia Qualifiers: Dementia type: unspecified type Dementia severity: moderate Dementia behavioral or psychological symptom: without behavioral, psychotic, or mood disturbance or anxiety Qualified Code(s): F03.B0 - Unspecified dementia, moderate, without behavioral disturbance, psychotic disturbance, mood disturbance, and anxiety Prescriptions: No Action (DME) Shower Chair See Rx Instructions .Route .MEDSUPPLY Qty: 1 0RF Rx Instructions: As directed cephalexin 500 mg capsule 500 mg PO BID 7 Days Qty: 14 0RF oxycodone-acetaminophen [Percocet] 5-325 mg tablet 1 tab PO Q6H PRN (Reason: pain) Qty: 112 0RF Rx Instructions: must last 28 days. Release date 07/04/23. trazodone 50 mg tablet 100 mg PO BEDTIME PRN (Reason: insomnia) Qty: 180 1RF Referrals: Zi Hussein MD [Primary Care Provider] - Stand Alone Forms: Patient Portal/API
[2023-07-20 20:28] LABS: Adenovirus Not Detected (Not Detect); B. parapertussis Not Detected (Not Detecte); Bordetella pertussis Not Detected (Not Detect); Chlamydophila pneumoniae Not Detected (Not Detect); Coronavirus 229E Not Detected (Not Detect); Coronavirus HKU1 Not Detected (Not Detect); Coronavirus NL 63 Not Detected (Not Detect); Coronavirus OC43 Not Detected (Not Detect); Human Metapneumovirus Not Detected (Not Detect); Human Rhinovirus/Enterovirus Not Detected (Not Detect); Influenza A Not Detected (Not Detect); Influenza B Not Detected (Not Detect); Mycoplasma pneumoniae Not Detected (Not Detect); Parainfluenza Virus 1 Not Detected (Not Detect); Parainfluenza Virus 2 Not Detected (Not Detect); Parainfluenza Virus 3 Not Detected (Not Detect); Parainfluenza Virus 4 Not Detected (Not Detect); Respiratory Syncytial Virus Not Detected (Not Detect); SARS- CoV-2 Not Detected (Not Detecte)
[2023-07-20 20:33] LABS: Procalcitonin 0.06 ng/mL (<0.5)
[2023-07-20] MEDS: cefTRIAXone 2,000 MG in SODIUM CHLORIDE 0.9% 100 ML 200 MG IV (21:15)
[2023-07-20 21:17] LABS: Reflexed Lactate in 2 Hours Y
[2023-07-20 21:48] LABS: Lactate 2HR (Lactic Acid Rflx) 0.9 mmol/L (0.7-2.1)
--- NOTE | 2023-07-20 22:53 | P.HP_ITS ---
History of Present Illness History of Present Illness Chief complaint: passing out all day Narrative: 77y/o with PMH of advanced dementia, s/p suprapubic catheter, has caregivers, who recently had functional decline, recurrent UTIs and falls. In May she fractured Lt shoulder. Seen in the ED few days ago for altered mental status, diagnosed with UTI and discharged on Keflex. Did not improve at home so presented again with UTI, SIRS, acute metabolic encephalopathy. UC from prior visit grew citrobacter and klebsiella, both resistant to Keflex. [facility] Medical History (Updated 07/20/23 @ 22:59 by Hao Garcia MD) Suprapubic catheter Dementia Family History Family/Other Hyperlipidemia Social History marital status: number of children: 0 household members: caregiver Smoking Status: Unknown if ever smoked alcohol intake: never Type(s) of exercise: walking frequency: 5-6 times per week Meds Home Medications and Allergies Home Medications Medication Instructions Recorded Confirmed Type Shower Chair #1 ea 04/09/23 06/10/23 Rx oxycodone-acetaminophen 5 mg-325 1 tab PO Q6H PRN pain #112 tabs 07/04/23 07/20/23 Rx mg tablet (Percocet) trazodone 50 mg tablet 100 mg (2 x 50 mg) PO BEDTIME PRN 07/04/23 07/20/23 Rx insomnia #180 tabs cephalexin 500 mg capsule 500 mg PO BID 7 days #14 caps 07/16/23 07/20/23 Rx Allergies Allergy/AdvReac Type Severity Reaction Status Date / Time No Known Drug Allergies Allergy Verified 07/20/23 18:49 Review of Systems Review of Systems Narrative: Unobtainable due to advanced dementia with additional encephalopathy Exam Vital Signs (past 8 hours): - 07/20/23 18:46 07/20/23 18:51 07/20/23 18:53 Temperature 98.8 F Pulse Rate 115 H 109 H Respiratory Rate 18 25 H Blood Pressure 146/65 H 148/65 H Pulse Oximetry 96 96 Oxygen Delivery Method Room Air Oxygen Flow Rate 07/20/23 18:53 07/20/23 19:00 07/20/23 19:10 Temperature Pulse Rate 108 H 104 H 99 H Respiratory Rate 38 H 32 H 22 Blood Pressure Pulse Oximetry 96 97 Oxygen Delivery Method Room Air Oxygen Flow Rate 07/20/23 19:20 07/20/23 19:30 07/20/23 19:31 Temperature Pulse Rate 97 H 97 H Respiratory Rate 29 H 27 H Blood Pressure 131/69 Pulse Oximetry 94 92 92 Oxygen Delivery Method Room Air Room Air Room Air Oxygen Flow Rate 07/20/23 19:31 07/20/23 19:32 07/20/23 19:35 Temperature Pulse Rate 96 H Respiratory Rate 24 Blood Pressure 134/64 Pulse Oximetry 92 98 Oxygen Delivery Method Nasal Cannula Oxygen Flow Rate 2 07/20/23 19:35 07/20/23 19:40 07/20/23 19:40 Temperature Pulse Rate 92 H 95 H Respiratory Rate 20 23 Blood Pressure 142/67 H Pulse Oximetry 97 96 Oxygen Delivery Method Nasal Cannula Nasal Cannula Oxygen Flow Rate 2 1 07/20/23 19:41 07/20/23 19:45 07/20/23 19:45 Temperature Pulse Rate 95 H Respiratory Rate 21 Blood Pressure 142/61 H Pulse Oximetry 94 93 Oxygen Delivery Method Nasal Cannula Nasal Cannula Oxygen Flow Rate 1 1 07/20/23 20:00 07/20/23 20:10 07/20/23 20:20 Temperature Pulse Rate 95 H 94 H 90 Respiratory Rate 24 24 Blood Pressure Pulse Oximetry 96 94 94 Oxygen Delivery Method Nasal Cannula Nasal Cannula Nasal Cannula Oxygen Flow Rate 1 1 1 07/20/23 20:30 07/20/23 20:40 07/20/23 20:50 Temperature Pulse Rate 89 85 90 Respiratory Rate 29 H 20 25 H Blood Pressure Pulse Oximetry 95 96 96 Oxygen Delivery Method Nasal Cannula Nasal Cannula Nasal Cannula Oxygen Flow Rate 1 1 1 Oxygen Delivery Method Nasal Cannula Oxygen Flow Rate 1 Narrative Exam Narrative: Laying in bed in no distress, obese, non-verbal HENMT Other: normocephalic Eyes Other: normal appearance Resp Other: normal respiratory effort Cardio Other: RRR GI Other: obese abdomen, not tender Other: suprapubic catheter in place, w/o hematuria Skin Other: suprapubic catheter insertion site w/o evidence of infection Neuro Other: cognitive deficits Extrem Other: b/l lower legs 1+ edema Lt arm not in sling. Psych Other: flat affect Objective Labs 07/20/23 18:55 07/20/23 19:20 Labs: Laboratory Results - last 24 hr 07/20/23 07/20/23 07/20/23 18:55 19:16 19:20 WBC 13.8 H RBC 4.25 Hgb 13.2 Hct 39.8 MCV 93.6 MCH 31.0 MCHC 33.1 RDW 13.7 Plt Count 380 Neut % (Auto) 79.5 H Lymph % (Auto) 11.5 L [place] % (Auto) 6.4 Eos % (Auto) 2.0 Baso % (Auto) 0.6 Neut # (Auto) 77164 H Lymph # (Auto) 1600 [place] # (Auto) 900 Eos # (Auto) 300 Baso # (Auto) 100 PT 11.2 INR 1.0 APTT 26 Sodium 134 L Potassium 3.8 Chloride 99 Carbon Dioxide 27 BUN 22 H Creatinine 0.78 Estimated GFR > 60 BUN/Creatinine Ratio 28.2 H Glucose 184 H Lactate 2.4 H Calcium 9.6 Total Bilirubin 0.4 AST 27 ALT 23 Alkaline Phosphatase 101 Total Creatine Kinase 31 Troponin I < 0.012 Total Protein 7.5 Albumin 3.9 Globulin 3.6 Albumin/Globulin Ratio 1.1 Lipase 71 Procalcitonin 0.06 Urine Color Urine Appearance Urine pH Ur Specific [place] Urine Protein Urine Glucose (UA) Urine Ketones Urine Occult Blood Urine Nitrate Urine Bilirubin Urine Urobilinogen Ur Leukocyte Esterase Urine RBC Urine WBC Ur Squamous Epith Cells Urine Bacteria Ur Culture Indicated? Chlamy pneumoniae PCR Not detected Adenovirus (PCR) Not detected B.parapertussis DNA PCR Not detected Coronavirus OC43 (PCR) Not detected Coronavirus HKU1 (PCR) Not detected Coronavirus 229E (PCR) Not detected SARS-CoV-2 (PCR) Not detected Coronavirus NL63 (PCR) Not detected Human Metapneumovir PCR Not detected Influenza Type A (PCR) Not detected Influenza Type B (PCR) Not detected M. pneumoniae (PCR) Not detected Parainfluenza 1 (PCR) Not detected Parainfluenza 2 (PCR) Not detected Parainfluenza 3 (PCR) Not detected Parainfluenza 4 (PCR) Not detected RSV (PCR) Not detected Entero/Rhino (PCR) Not detected 07/20/23 07/20/23 20:10 21:28 WBC RBC Hgb Hct MCV MCH MCHC RDW Plt Count Neut % (Auto) Lymph % (Auto) [place] % (Auto) Eos % (Auto) Baso % (Auto) Neut # (Auto) Lymph # (Auto) [place] # (Auto) Eos # (Auto) Baso # (Auto) PT INR APTT Sodium Potassium Chloride Carbon Dioxide BUN Creatinine Estimated GFR BUN/Creatinine Ratio Glucose Lactate 0.9 Calcium Total Bilirubin AST ALT Alkaline Phosphatase Total Creatine Kinase Troponin I Total Protein Albumin Globulin Albumin/Globulin Ratio Lipase Procalcitonin Urine Color Yellow Urine Appearance Clear Urine pH 6.0 Ur Specific [place] 1.015 Urine Protein Negative Urine Glucose (UA) Trace H Urine Ketones Negative Urine Occult Blood 2+ H Urine Nitrate Positive H Urine Bilirubin Negative Urine Urobilinogen 0.2 Ur Leukocyte Esterase Trace H Urine RBC 1-5/hpf Urine WBC 5-10/hpf H Ur Squamous Epith Cells None seen Urine Bacteria Moderate (10-30) H Ur Culture Indicated? Specimen cultured Chlamy pneumoniae PCR Adenovirus (PCR) B.parapertussis DNA PCR Coronavirus OC43 (PCR) Coronavirus HKU1 (PCR) Coronavirus 229E (PCR) SARS-CoV-2 (PCR) Coronavirus NL63 (PCR) Human Metapneumovir PCR Influenza Type A (PCR) Influenza Type B (PCR) M. pneumoniae (PCR) Parainfluenza 1 (PCR) Parainfluenza 2 (PCR) Parainfluenza 3 (PCR) Parainfluenza 4 (PCR) RSV (PCR) Entero/Rhino (PCR) Assessment & Plan Assessment and plan (1) Urinary tract infection: Qualifiers: Hematuria presence: with hematuria Urinary tract infection type: acute cystitis Qualified Code(s): N30.01 - Acute cystitis with hematuria Status: Acute Plan: Failed outpt Keflex as both organisms resistant to it Rocephin instead (2) SIRS (systemic inflammatory response syndrome): Status: Acute Plan: on presentation tachycardic, tachypneic, with LA of 2.4 - quickly down to 0.9 after IVFs, improved HR. Not hypotensive. (3) Suprapubic catheter: Status: Acute Plan: It was recently exchanged (4) Acute metabolic encephalopathy: Status: Acute Plan: according to the caregiver that came with her she was markedly different in the past few days (5) Dementia: Qualifiers: Dementia behavioral or psychological symptom: without behavioral, psychotic, or mood disturbance or anxiety Dementia severity: moderate Dementia type: unspecified type Qualified Code(s): F03.B0 - Unspecified dementia, moderate, without behavioral disturbance, psychotic disturbance, mood disturbance, and anxiety Status: Acute Plan: advanced, supportive care (6) Shoulder fracture, left: Qualifiers: Encounter type: subsequent encounter Fracture healing: with delayed healing Fracture type: closed Qualified Code(s): S42.92XG - Fracture of left shoulder girdle, part unspecified, subsequent encounter for fracture with delayed healing Status: Acute Plan: apparently scheduled for surgery in 07/2023 - w/o a sling - limited ROMs w/o pain - OT (7) History of falling: Status: Acute Plan: fall precautions, PT (8) Insomnia: Qualifiers: Insomnia type: unspecified Qualified Code(s): G47.00 - Insomnia, unspecified Status: Acute Plan Trazodone
[2023-07-21 00:18] VITALS: BP 141/79; RESP 20; TEMP 36.5; O2SAT 95
[2023-07-21] MEDS: TRAZODONE 50 MG TABLET 100 MG PO (00:40)
[2023-07-21 01:13] VITALS: BMI 37.8
[2023-07-21 04:00] VITALS: BP 136/66; PULSE 87; RESP 17; TEMP 36.6; O2SAT 94
[2023-07-21 07:51] VITALS: BP 125/66; PULSE 90; RESP 16; TEMP 36.4; O2SAT 94
[2023-07-21 08:26] LABS: Add Manual Diff / Slide Review NO; Basophils Absolute Auto 100 /uL (0-100); Basophils Percent Auto 0.6 % (0-2); Eosinophils Absolute Auto 200 /uL (0-450); Eosinophils Percent Auto 1.9 % (2-4); Hemoglobin 12.3 g/dL (12.0-16.0); Lymphocytes Absolute Auto 1300 /uL (1100-4500); Lymphocytes Percent Auto 10.1 % (25-40); Mean Corpuscular HGB Conc 33.3 % (30-36); Mean Corpuscular Hemoglobin 30.9 PG (26-34); Mean Corpuscular Volume 92.9 fL (80-100); Monocytes Absolute Auto 1100 /uL (0-900); Monocytes Percent Auto 8.6 % (3-14); Neutrophils Absolute Auto 10400 /uL (1500-7000); Neutrophils Percent Auto 78.8 % (50-75); Platelet Count 343 X10^3/uL (150-400); Red Blood Cell Count 3.98 X10^6/uL (4.0-5.2); Red Cell Distribution Width 13.4 % (11.6-14.8); White Blood Cell Count 13.1 X10^3/uL (4.5-11.0)
[2023-07-21 08:37] LABS: BUN Creatinine Ratio 24.3 (6-22); Blood Urea Nitrogen 17 mg/dL (7-17); Calcium 9.7 mg/dL (8.4-10.2); Carbon Dioxide 26 mmol/L (22-32); Chloride 101 mmol/L (98-107); Estimated Glomerular Filt Rate > 60 mL/min (>60); Glucose 100 mg/dL (80-110); HEMOLYSIS < 15 (0-50); Sodium 135 mmol/L (137-145)
[2023-07-21] MEDS: ENOXAPARIN 40 MG/0.4 ML SYRINGE SUBCUT (08:44)
[2023-07-21] MEDS: cefTRIAXone 1,000 MG in SODIUM CHLORIDE 0.9% 100 ML 200 MG IV (08:44)
[2023-07-21 09:55] VITALS: BP 141/78; BP 143/70; BP 146/74; PULSE 106; PULSE 109; PULSE 128
--- NOTE | 2023-07-21 11:10 | PM.PN.1 ---
Subjective Subjective Interval history: Patient pleasantly demented. Has no complaints. Exam Vital Signs (past 8 hours): - 07/21/23 04:00 07/21/23 07:00 07/21/23 07:51 Temperature 97.8 F 97.6 F Pulse Rate 87 90 Pulse Rate [Orthostatic Lying] Pulse Rate [Orthostatic Sitting] Pulse Rate [Orthostatic Standing] Respiratory Rate 17 16 Blood Pressure 136/66 125/66 Blood Pressure [Orthostatic Lying] Blood Pressure [Orthostatic Sitting] Blood Pressure [Orthostatic Standing] Pulse Oximetry 94 94 Oxygen Delivery Method Room Air Oxygen Flow Rate 0 07/21/23 09:55 Temperature Pulse Rate Pulse Rate [Orthostatic Lying] 106 H Pulse Rate [Orthostatic Sitting] 109 H Pulse Rate [Orthostatic Standing] 128 H Respiratory Rate Blood Pressure Blood Pressure [Orthostatic Lying] 143/70 H Blood Pressure [Orthostatic Sitting] 146/74 H Blood Pressure [Orthostatic Standing] 141/78 H Pulse Oximetry Oxygen Delivery Method Oxygen Flow Rate Oxygen Delivery Method Room Air Oxygen Flow Rate 0 Narrative Exam Narrative: Laying in bed in no distress, obese, pleasantly confused HENMT Other: normocephalic Eyes Other: normal appearance Resp Other: normal respiratory effort Cardio Other: RRR GI Other: obese abdomen, not tender Other: suprapubic catheter in place, w/o hematuria Skin Other: suprapubic catheter insertion site w/o evidence of infection Neuro Other: cognitive deficits Extrem Other: b/l lower legs 1+ edema Objective Labs 07/21/23 08:20 07/21/23 08:20 Labs: Laboratory Results - last 24 hr 07/20/23 07/20/23 07/20/23 18:55 19:16 19:20 WBC 13.8 H RBC 4.25 Hgb 13.2 Hct 39.8 MCV 93.6 MCH 31.0 MCHC 33.1 RDW 13.7 Plt Count 380 Neut % (Auto) 79.5 H Lymph % (Auto) 11.5 L [place] % (Auto) 6.4 Eos % (Auto) 2.0 Baso % (Auto) 0.6 Neut # (Auto) 47967 H Lymph # (Auto) 1600 [place] # (Auto) 900 Eos # (Auto) 300 Baso # (Auto) 100 PT 11.2 INR 1.0 APTT 26 Sodium 134 L Potassium 3.8 Chloride 99 Carbon Dioxide 27 BUN 22 H Creatinine 0.78 Estimated GFR > 60 BUN/Creatinine Ratio 28.2 H Glucose 184 H Lactate 2.4 H Calcium 9.6 Total Bilirubin 0.4 AST 27 ALT 23 Alkaline Phosphatase 101 Total Creatine Kinase 31 Troponin I < 0.012 Total Protein 7.5 Albumin 3.9 Globulin 3.6 Albumin/Globulin Ratio 1.1 Lipase 71 Procalcitonin 0.06 Urine Color Urine Appearance Urine pH Ur Specific [place] Urine Protein Urine Glucose (UA) Urine Ketones Urine Occult Blood Urine Nitrate Urine Bilirubin Urine Urobilinogen Ur Leukocyte Esterase Urine RBC Urine WBC Ur Squamous Epith Cells Urine Bacteria Ur Culture Indicated? Chlamy pneumoniae PCR Not detected Adenovirus (PCR) Not detected B.parapertussis DNA PCR Not detected Coronavirus OC43 (PCR) Not detected Coronavirus HKU1 (PCR) Not detected Coronavirus 229E (PCR) Not detected SARS-CoV-2 (PCR) Not detected Coronavirus NL63 (PCR) Not detected Human Metapneumovir PCR Not detected Influenza Type A (PCR) Not detected Influenza Type B (PCR) Not detected M. pneumoniae (PCR) Not detected Parainfluenza 1 (PCR) Not detected Parainfluenza 2 (PCR) Not detected Parainfluenza 3 (PCR) Not detected Parainfluenza 4 (PCR) Not detected RSV (PCR) Not detected Entero/Rhino (PCR) Not detected 07/20/23 07/20/23 07/21/23 20:10 21:28 08:20 WBC 13.1 H RBC 3.98 L Hgb 12.3 Hct 37.0 MCV 92.9 MCH 30.9 MCHC 33.3 RDW 13.4 Plt Count 343 Neut % (Auto) 78.8 H Lymph % (Auto) 10.1 L [place] % (Auto) 8.6 Eos % (Auto) 1.9 L Baso % (Auto) 0.6 Neut # (Auto) 88076 H Lymph # (Auto) 1300 [place] # (Auto) 1100 H Eos # (Auto) 200 Baso # (Auto) 100 PT INR APTT Sodium 135 L Potassium 4.0 Chloride 101 Carbon Dioxide 26 BUN 17 Creatinine 0.70 Estimated GFR > 60 BUN/Creatinine Ratio 24.3 H Glucose 100 Lactate 0.9 Calcium 9.7 Total Bilirubin AST ALT Alkaline Phosphatase Total Creatine Kinase Troponin I Total Protein Albumin Globulin Albumin/Globulin Ratio Lipase Procalcitonin Urine Color Yellow Urine Appearance Clear Urine pH 6.0 Ur Specific [place] 1.015 Urine Protein Negative Urine Glucose (UA) Trace H Urine Ketones Negative Urine Occult Blood 2+ H Urine Nitrate Positive H Urine Bilirubin Negative Urine Urobilinogen 0.2 Ur Leukocyte Esterase Trace H Urine RBC 1-5/hpf Urine WBC 5-10/hpf H Ur Squamous Epith Cells None seen Urine Bacteria Moderate (10-30) H Ur Culture Indicated? Specimen cultured Chlamy pneumoniae PCR Adenovirus (PCR) B.parapertussis DNA PCR Coronavirus OC43 (PCR) Coronavirus HKU1 (PCR) Coronavirus 229E (PCR) SARS-CoV-2 (PCR) Coronavirus NL63 (PCR) Human Metapneumovir PCR Influenza Type A (PCR) Influenza Type B (PCR) M. pneumoniae (PCR) Parainfluenza 1 (PCR) Parainfluenza 2 (PCR) Parainfluenza 3 (PCR) Parainfluenza 4 (PCR) RSV (PCR) Entero/Rhino (PCR) PFSH Medical History (Updated 07/20/23 @ 22:59 by Hao Garcia MD) Suprapubic catheter Dementia Family History Family/Other Hyperlipidemia Social History marital status: number of children: 0 household members: caregiver Smoking Status: Unknown if ever smoked alcohol intake: never Type(s) of exercise: walking frequency: 5-6 times per week Assessment & Plan Assessment and plan (1) Urinary tract infection: Qualifiers: Hematuria presence: with hematuria Urinary tract infection type: acute cystitis Qualified Code(s): N30.01 - Acute cystitis with hematuria Status: Acute Plan: Failed outpt Keflex as both organisms resistant to it Rocephin 1g x3 days f/up urine culture (2) SIRS (systemic inflammatory response syndrome): Status: Acute Plan: on presentation tachycardic, tachypneic, with LA of 2.4 - quickly down to 0.9 after IVFs, improved HR. Not hypotensive. (3) Suprapubic catheter: Status: Acute Plan: It was recently exchanged (4) Acute metabolic encephalopathy: Status: Acute Plan: according to the caregiver that came with her she was markedly different in the past few days (5) Dementia: Qualifiers: Dementia behavioral or psychological symptom: without behavioral, psychotic, or mood disturbance or anxiety Dementia severity: moderate Dementia type: unspecified type Qualified Code(s): F03.B0 - Unspecified dementia, moderate, without behavioral disturbance, psychotic disturbance, mood disturbance, and anxiety Status: Acute Plan: advanced, supportive care (6) Shoulder fracture, left: Qualifiers: Encounter type: subsequent encounter Fracture type: closed Fracture healing: with delayed healing Qualified Code(s): S42.92XG - Fracture of left shoulder girdle, part unspecified, subsequent encounter for fracture with delayed healing Status: Acute Plan: apparently scheduled for surgery in 07/2023 - w/o a sling - limited ROMs w/o pain - OT eval (7) History of falling: Status: Acute Plan: fall precautions, PT eval (8) Insomnia: Qualifiers: Insomnia type: unspecified Qualified Code(s): G47.00 - Insomnia, unspecified Status: Acute Plan: trazodone PRN Plan Dispo: Home in 1-2 days after PT/OT and UTI treatment. Quality VTE Deep Vein Thrombosis/Pulmonary Embolism Present on Admission: No
--- NOTE | 2023-07-21 11:35 | CM.DANOTE ---
Addendum entered by KAY Cedeño 07/21/23 12:58: Provider authorized medical priority boarding for pt for tomorrow. Due to the website being down at this time, NURSE CLINICIAN completed medical preferential load form and emailed it to . Preferential boarding pending review and response from their team. GENEVA Original Note: DCP Assessment Note Pt is a 77yo F here with dementia and altered mental status due to UTI. Urine cultures pending. PCP Zi Hussein Payer Medicare and Medicaid NURSE CLINICIAN reviewed EMR. Per provider in rounds, pt doing well. PT/OT pending. NURSE CLINICIAN entered room and introduced self and role. Pt resting in bed and was pleasant throughout interaction but it was unclear if she was following due to her dementia. Pt was accompanied by friend/MATEO caregiver/POA Jerrica ([phone]). Jerrica report pt lives with her on [place] and Jerrica provides for her ADLs, including bathing, meds, grooming, assist in eating, driving, and others. Pt MATEO home care attendant is Emmanuelle. Pt does not use DME at baseline due to mentation/forgetfulness, but Jerrica reports could benefit from a walker. Jerrica denies Hx of HH and reports not wanting it due to dogs and home set up and overall would prefer OP PT to get her out of the house and socializing. Pt has a wheelchair if needed. Pt has a catheter that Jerrica brings her here to [place] to change out as needed. Pt has shoulder surgery scheduled with Dr. Lua in July. Jerrica adamantly would like pt to remain hospitalized overnight in order to ensure the antibiotics are working. Jerrica requested if possible to have a priority boarding pass due to wait times at the [facility]. Plan: PT/OT pending. Likely home with caregiver when medically stable. CM team will follow if walker for home use needed/if appropriate for priority boarding pass. CM team will continue to follow closely. KAY Cedeño Discharge Planning/Care Management CM Discharge Assessment Start: 07/21/23 11:31 Freq: Status: Active Protocol: Document 07/21/23 11:32 SL (Rec: 07/21/23 11:34 [id number]) Discharge Planning Assessment Assigned Manager Casino Anh L., NURSE CLINICIAN DPOA/Assigned Designee Name Jerrica Ruiz (POA/MATEO/Friend) Contact Information [phone] Advance Directives? Yes: POA History Provided By Family Member,Medical Record Has Patient been admitted in last 30 No days? Prior Living Arrangements House Household Members caregiver Comment MATEO caregiver is friend Jerrica, lives in [facility] Type of transporation used prior to Relies on Others admit Comment Jerrica drives her everywhere Independent with ADL's No Is patient alert and oriented? No Needs Assistance With Bathing,Eating,Grooming,Meal Prep,Toileting,Managing Medications,Home Chores / Shopping Community Services used prior to Physical Therapy admission: Comment pt set up with OP physical therapy on [place] DME Already Rented / Owned Bath Bench,Wheelchair,Cane, Other Comment grab bars, interested in walker if able to get one from here Hours / Month 11/02 care Comment MATEO Rn Testing is Blanche ( last name?) Discharge Plan Home Transportation Arrangement Jerrica in POV Referrals Initiated None needed Whiteboard Updated in Patient Room with Yes name and ext. # of Manager Casino Review Status In Process Next Review Type Continued Stay Review
[2023-07-21] MEDS: OXYCODONE/ACETAMINOPHEN 5/325 TABLET 1 TAB PO (11:49)
[2023-07-21 15:51] VITALS: BP 128/60; PULSE 103; RESP 17; TEMP 36.3; O2SAT 94
[2023-07-21 20:00] VITALS: BP 139/76; PULSE 90; RESP 20; TEMP 37.1; O2SAT 93
[2023-07-22 01:00] VITALS: BP 140/86; PULSE 94; RESP 20; TEMP 36.3; O2SAT 96
[2023-07-22 02:00] VITALS: BP 150/88; BP 151/90; BP 160/111; PULSE 118; PULSE 121; PULSE 96
[2023-07-22 04:56] LABS: Add Manual Diff / Slide Review NO; Basophils Absolute Auto 100 /uL (0-100); Basophils Percent Auto 1.1 % (0-2); Eosinophils Absolute Auto 300 /uL (0-450); Eosinophils Percent Auto 2.4 % (2-4); Hematocrit 36.1 % (36-46); Hemoglobin 11.9 g/dL (12.0-16.0); Lymphocytes Absolute Auto 1500 /uL (1100-4500); Lymphocytes Percent Auto 10.4 % (25-40); Mean Corpuscular HGB Conc 33.1 % (30-36); Mean Corpuscular Hemoglobin 30.6 PG (26-34); Mean Corpuscular Volume 92.6 fL (80-100); Monocytes Absolute Auto 1400 /uL (0-900); Monocytes Percent Auto 9.8 % (3-14); Neutrophils Absolute Auto 10800 /uL (1500-7000); Neutrophils Percent Auto 76.3 % (50-75); Platelet Count 353 X10^3/uL (150-400); Red Cell Distribution Width 13.6 % (11.6-14.8); White Blood Cell Count 14.1 X10^3/uL (4.5-11.0)
[2023-07-22 05:06] LABS: BUN Creatinine Ratio 34.3 (6-22); Blood Urea Nitrogen 24 mg/dL (7-17); Calcium 9.5 mg/dL (8.4-10.2); Carbon Dioxide 24 mmol/L (22-32); Chloride 103 mmol/L (98-107); Estimated Glomerular Filt Rate > 60 mL/min (>60); Glucose 107 mg/dL (80-110); HEMOLYSIS < 15 (0-50); Sodium 135 mmol/L (137-145)
--- NOTE | 2023-07-22 06:45 | PC.NURSE ---
pt was awake the majority of the shift, restless, pleasantly confused; she will attempt to get OOB w/o calling and her bed alarm is on; she was able to stand at bedside for orthostatic vital signs
[2023-07-22] MEDS: cefTRIAXone 1,000 MG in SODIUM CHLORIDE 0.9% 100 ML 200 MG IV (08:20)
[2023-07-22] MEDS: ENOXAPARIN 40 MG/0.4 ML SYRINGE SUBCUT (08:20)
[2023-07-22] MEDS: ONDANSETRON 4 MG/2 ML INJ IV (08:30)
--- NOTE | 2023-07-22 08:53 | PM.PN.1 ---
Subjective Subjective Interval history: She feels very weak and very confused. She denies abdomen pain, but does have some [place]. Exam Vital Signs (past 8 hours): - 07/22/23 01:00 07/22/23 02:00 Temperature 97.4 F L Pulse Rate 94 H Pulse Rate [Orthostatic Lying] 96 H Pulse Rate [Orthostatic Sitting] 118 H Pulse Rate [Orthostatic Standing] 121 H Respiratory Rate 20 Blood Pressure 140/86 Blood Pressure [Orthostatic Lying] 150/88 H Blood Pressure [Orthostatic Sitting] 160/111 H Blood Pressure [Orthostatic Standing] 151/90 H Pulse Oximetry 96 Oxygen Delivery Method Room Air Oxygen Flow Rate 0 Narrative Exam Narrative: NAD, does not remember where she lives. EOMI Neck supple Lungs clear with normal effort Abdomen soft, NT. No leg edema Objective Labs 07/22/23 04:34 07/22/23 04:34 Labs: Laboratory Results - last 24 hr 07/22/23 04:34 WBC 14.1 H RBC 3.90 L Hgb 11.9 L Hct 36.1 MCV 92.6 MCH 30.6 MCHC 33.1 RDW 13.6 Plt Count 353 Neut % (Auto) 76.3 H Lymph % (Auto) 10.4 L [place] % (Auto) 9.8 Eos % (Auto) 2.4 Baso % (Auto) 1.1 Neut # (Auto) 98172 H Lymph # (Auto) 1500 [place] # (Auto) 1400 H Eos # (Auto) 300 Baso # (Auto) 100 Sodium 135 L Potassium 4.0 Chloride 103 Carbon Dioxide 24 BUN 24 H Creatinine 0.70 Estimated GFR > 60 BUN/Creatinine Ratio 34.3 H Glucose 107 Calcium 9.5 PFSH Medical History (Updated 07/20/23 @ 22:59 by Hao Garcia MD) Suprapubic catheter Dementia Family History Family/Other Hyperlipidemia Social History marital status: number of children: 0 household members: caregiver Smoking Status: Unknown if ever smoked alcohol intake: never Type(s) of exercise: walking frequency: 5-6 times per week Assessment & Plan Assessment & Plan narrative: 1. UTI associated with chronic supropubic catheter, POA and active. -cont Cefrtiaxone 2. Septic encephalopathy, POA and active. -monitor mental status 3. Dementia, POA and active. 4. SIRS, POA and improved. 5. Lactic acidosis, POA and improved. 6. Left humerus fracture, POA and active. -sling. DISPO: home 1-2 days when encephalopathy improved. Quality VTE Deep Vein Thrombosis/Pulmonary Embolism Present on Admission: No
[2023-07-22 09:14] VITALS: BP 135/78; PULSE 84; RESP 16; TEMP 36.2; O2SAT 95
--- NOTE | 2023-07-22 10:14 | CM.DPNOTE ---
DCP Note CORPORATE DIRECTOR TALENT ASSESSMENT reviewed EMR. CORPORATE DIRECTOR TALENT ASSESSMENT updated PT/OT on caregivers inquiry about a walker/pt's upcoming shoulder surgery impacting her future walker use. PT/OT team plan to collaborate to assist in attempting to come up with the safest ambulation plan that accommodates her weakness, shoulder surgery needs, and dementia/mental status. Per provider in rounds, likely to keep her another night due to increased confusion from baseline dementia. Likely dc tomorrow with caregiver Jerrica. No response from [facility] [employer] on priority boarding pass as of 1000 1..24. CORPORATE DIRECTOR TALENT ASSESSMENT will continue to attempt to obtain a ferry pass with website being down. Plan: home with CG Jerrica when medically stable. CM team will continue to follow closely for appropriate DME/boarding pass needs. No additional CM needs identified at this time. KAY Cedeño
--- NOTE | 2023-07-22 11:22 | OT.IPNOTE ---
Pt reclined in bed on both eval attempts. Pt c/o nausea and not feeling well on both visits. Pt declines getting out of bed and is unable to functionally participate in eval at these times. OT will re-attempt evaluation as able.
[2023-07-22] MEDS: OXYCODONE/ACETAMINOPHEN 5/325 TABLET 1 TAB PO (12:04)
--- NOTE | 2023-07-22 14:49 | OT.IP.EVAL ---
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 Mobility and Gait Per caregiver, pt was amb without AD both in and out of home. Cg utilized gait belt. Activities of Daily Living and IADL's Per caregiver, she performs all of pt's ADLs. Social History Household Members caregiver Living Arrangements House Number of Stairs To Enter/Railing? home has 5 steps to enter with B rails. Home Environment Standard Height Toilet,Tub/ Shower Home Equipment Shower Seat with Backrest,Grab Bars Near Toilet,Grab Bars In Shower M2 OT-IP Current Condition Start: 07/22/23 14:24 Freq: Status: Active Protocol: Document 07/22/23 14:25 EARL (Rec: 07/22/23 14:49 EARL [id number]) Occupational Therapy Current Condition Current Condition Evaluation Date 07/22/23 Treatment Diagnosis AMS s/p UTI Diagnosis Onset Date 07/21/23 M3 OT- IP Subjective and Pain Start: 07/22/23 14:24 Freq: Status: Active Protocol: Document 07/22/23 14:25 EARL (Rec: 07/22/23 14:49 EARL [id number]) OT- Subjective Occupational Therapy Visit Type Type Initial Evaluation Visit Start Time 13:55 Visit Stop Time 14:20 Total Visit Minutes 25 Notes Pt is alert and orientated to name/place, up in chair with caregiver present. Pt is agreeable to participating in OT evaluation. Occupational Therapy Visit Comments Patient Comments Pt defers to cg when answering questions. Patient/Caregiver Goals Pt's cg reports that pt is functioning at baseline level for her ADLs and functional mobility. OT Pain Assessment Pain When Pain Assessed At Rest Pain Present Pain Present Pain Reported Location Lower Shoulder Scale Used pain stated but unable to rate . Pt pointed to area. M4 OT- IP ADL's Start: 07/22/23 14:24 Freq: Status: Active Protocol: Document 07/22/23 14:25 EARL (Rec: 07/22/23 14:49 [facility] [id number]) OT LCZ-Hziy-Ceismir General Evaluation Self-Feeding Ability Minimal Assistance Comments OT Self-Feeding Comments Pt needed OT to present her cup to her to drink liquid. OT ADL-Grooming Comments OT Grooming Comments not observed. cg reports that she performs grooming tasks for pt and reports she is at baseline. OT ADL-Oral Care General Eval Oral Care Ability Standby Assistance Comments Oral Care Comments Pt required toothbrush to be set up. She is able to brush on setup and to rinse mouth with vcs for each step and to sequence. OT ADL-Dressing Comments OT Dressing Comments not observed during eval. Cg states that she performs all of pt's dressing, both UB and LB. Cg states that she understands how to care for L shoulder fx. Cg demonstrated correctly donning sling for pt . OT ADL-Toileting General Evaluation Toileting Ability Total Assistance Comments OT Toileting Comments Pt uses catheter. Per cg, pt is at baseline with toileting. OT ADL-Bathing Comments OT Bathing Comments Not observed. Cg states that she bathes the pt and has been for some time due to the dementia. Pt is functioning at baseline per cg. M5 OT- IP IADL's Start: 07/22/23 14:24 Freq: Status: Active Protocol: Document 07/22/23 14:25 EARL (Rec: 07/22/23 14:49 [facility] [id number]) OT-Instrumental Activities of Daily Living Home Safety Awareness Awareness of Need for Assistance at Home Decreased Awareness Ability to Problem Solve Emergency Unable to Problem Solve Situations Medication Management Medication Management Caregiver Administers Money Management Money Management Caregiver Provides Assistance Meal Preparation Meal Preparation Caregiver Provides Assist Primary Education Professor Primary Education Professor Caregiver Provides Assist Driving Driving Caregiver Provides Supervision M6 OT- IP Functional Cognition Start: 07/22/23 14:24 Freq: Status: Active Protocol: Document 07/22/23 14:25 EARL (Rec: 07/22/23 14:49 [facility] [id number]) Cognitive Factors Limiting Selfcare Function Cognitive Ability Level of Alertness Alert Patient Orientation Name,Place Ability to Follow Commands Able to Follow One Step Commands Memory Description 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 OT- Vision and Hearing OT- Hearing Assessment OT- Hearing Assessment WFL OT- Vision Assessment Visual Acuity WFL,Glasses All The Time M7 OT- IP Mobility and Balance Start: 07/22/23 14:24 Freq: Status: Active Protocol: Document 07/22/23 14:25 EARL (Rec: 07/22/23 14:49 [facility] [id number]) OT-Transfer Assessment Sit to and From Stand Sit to and from Stand Contact Guard Assistance Technique Transfer Destination Chair Comments Mobility Comments Pt performs sit<>stand with CGA and vcs for steps. Once standing pt stated I'm afraid I'm going to fall. Pt was alert and demonstrated no loss of balance while standing. OT- Gait Assessment Gait Gait Assistance Required: Contact Guard Assist Distance (Feet) 20 Assistive Devices Assistive Device Gait Belt,Front Wheeled Walker Comments Gait Ability Comments Pt ambulates 20' with vcs for destination. Pt stands at sink side to perform oral hygiene. Pt requires vcs to scoot up to the sink and to lean forward when spitting into the sink. Pt returns to chair and requires vcs to scoot back until her LEs touch the chair and to reach back for R armrest. OT- Balance Assessment Sitting Balance and Reactions Static Sitting Balance Ability Good Dynamic Sitting Balance Ability Good Standing Balance and Reactions Static Standing Balance Ability Good Dynamic Standing Balance Ability Fair M8 OT- IP Objective Assessments Start: 07/22/23 14:24 Freq: Status: Active Protocol: Document 07/22/23 14:25 [facility] (Rec: 07/22/23 14:49 [facility] [id number]) OT Gross Range of Motion Upper Extremity Range of Motion Assessment Left Impaired OT Strength Upper Extremity Strength Shoulder R WFL; L not tested due to fx Elbow R WFL; L not tested due to shoulder fx Wrist R WFL; L not tested Hand R WFL; L not tested Hand Specialized Developer Strength Hand Dominance Right Comments Strength Comments L UE not tested due to L shoulder fx. Pt is scheduled to have shoulder replacement in about a week. M9 OT- IP Assessment and Plan Start: 07/22/23 14:24 Freq: Status: Active Protocol: Document 07/22/23 14:25 [facility] (Rec: 07/22/23 14:49 [facility] [id number]) OT Summary Assessment and Plan Potential Rehabilitation Potential Poor Analytic Complexity at Evaluation Low Summary OT Impairments Pain Assessment Summary PT is 77 yo F presenting with dementia and recent altered mental status due to UTI. Pt is pleasant and cooperative. Pt's Cg, Jerrica, is present for evaluation. Pt defers to Jerrica when answering questions. Per Cg, pt is functioning at baseline with respect to her ADLs and functional mobility. Cg is aware of pt's L shoulder fx and how to care for it, including correct use of sling . Cg demonstrates correct donning of sling. Pt is currently at baseline for OT, skilled OT services are not indicated at this time. Frequency of Treatment Frequency Of Treatment Discharge Discharge Recommendations OT Discharge Recommendations Home with Assistance, Outpatient PT Other Discharge Recommendations Recommend d/c home with caregiver and already established outpt PT.
[2023-07-22 15:06] VITALS: BP 119/55; BP 124/61; BP 93/61; PULSE 107; PULSE 92; PULSE 95
--- NOTE | 2023-07-22 15:09 | PT.IIE ---
Current Diagnoses Unspecified dementia, moderate, without behavioral disturbance, psychotic disturbance, mood disturbance, and anxiety (07/20/23) Insomnia, unspecified (07/20/23) Metabolic encephalopathy (07/20/23) Acute cystitis with hematuria (07/20/23) Systemic inflammatory response syndrome (SIRS) of non-infectious origin without acute organ dysfunction (07/20/23) Fracture of left shoulder girdle, part unspecified, subsequent encounter for fracture with delayed healing (07/20/23) History of falling (07/20/23) Other cystostomy status (07/20/23) Medical History (Last Updated 07/20/23 @ 22:59 by Hao Garcia MD) Dementia Suprapubic catheter Physical Therapy Inpatient Evaluation/Re-Eval M1 PT/OT-IP Prior Functional Status Start: 07/22/23 14:24 Freq: NEEDED Status: Active Protocol: Document 07/22/23 15:09 AW (Rec: 07/22/23 16:38 AW [id number]) Medical Review Prior Functional Status Medical History Reviewed Yes Communication Pt able to communicate her needs. Mobility and Gait Per caregiver, pt was amb without AD both in and out of home. Cg utilized gait belt. Activities of Daily Living and IADL's Per caregiver, she performs all of pt's ADLs. Social History Household Members caregiver Living Arrangements House Number of Stairs To Enter/Railing? home has 5 steps to enter with B rails. Home Environment Standard Height Toilet,Tub/ Shower Home Equipment Shower Seat with Backrest,Grab Bars Near Toilet,Grab Bars In Shower M2 PT-IP Current Condition Start: 07/22/23 09:00 Freq: NEEDED Status: Active Protocol: Document 07/22/23 15:09 AW (Rec: 07/22/23 16:38 AW [id number]) Physical Therapy Current Condition Current Condition Evaluation Date 07/22/23 Treatment Diagnosis septic encephalopathy; left proximal humerus fracture; impaired mobility Onset Date 07/21/23 M3 PT-IP Subjective Start: 07/22/23 09:00 Freq: NEEDED Status: Active Protocol: Document 07/22/23 15:09 AW (Rec: 07/22/23 16:38 AW [id number]) Subjective Physical Therapy Visit Type Type Initial Evaluation Visit Start Time 14:45 Visit Stop Time 15:09 Total Visit Minutes 24 Notes Pt's caregiver, Jerrica, is present throughout this assessment Physical Therapy Visit Comments Patient Comments Pt is willing to participate with PT Therapy Pain Assessment Pain When Pain Assessed During Mobility Pain Present Pain Present Denied Pain M4 PT-IP Mobility and Gait Start: 07/22/23 09:00 Freq: NEEDED Status: Active Protocol: Document 07/22/23 15:09 AW (Rec: 07/22/23 16:38 AW [id number]) PT-Bed Mobility Assessment Sit to Supine Sit to Supine Minimal Assistance,2 Person Assistance PT-Transfer Assessment Sit to and From Stand Sit to and from Stand Minimal Assistance,1 Person Assistance,Use of Upper Extremities Equipment Transfer Assistive Device Gait Belt,Front Wheeled Walker Orthotic/Prosthetic Devices or Brace: No Transfers Transfer Destination Bed Transfer Technique Stand Step Pivot Transfer Ability Level of Assist Minimal Assistance,1 Person Assistance,Use of Upper Extremities Comments Mobility Comments Pt was found sitting up in the chair with nursing attempting to obtain orthostatic VS. BP in sitting is 119/55 HR 95. Pt has shoulder sling on LUE. Reverse TSA is planned for later this month. Pt requires verbal cues to strategize sit to stand transfer. Min A x 1 with PT supporting at left forearm for pt to stand to FWW . BP 93/61 HR 107 in standing and pt begins to report syncopal prodrome and closes her eyes, going unresponsive and her right arm goes limp as she begins to transfer. Pt is assisted with transfer to sitting EOB where BP reading is 137/51 HR 103. Pt becomes more responsive but has trouble keeping her eyes open. PT and RN assist her back to supine. BP 124/61 HR 92. Gait Assessment Gait Gait Assistance Required: Minimum Assistance Distance (Feet) 3 Assistive Devices Assistive Device Gait Belt,Front Wheeled Walker Orthotic/Prosthetic Devices or Brace: No Comments Gait Comments PT provides physical and navigational assist for steps taken during transfer only. Stair Climbing Assessment Comments Stair Climbing Comments Unable at this time due to syncopal event. PT-Balance Assessment Sitting Balance and Reactions Static Sitting Balance Ability Good Dynamic Sitting Balance Ability Good Standing Balance and Reactions Static Standing Balance Ability Fair Dynamic Standing Balance Ability Fair Device Used FWW M5 PT-IP Objective Assessments Start: 07/22/23 09:00 Freq: NEEDED Status: Active Protocol: Document 07/22/23 15:09 AW (Rec: 07/22/23 16:38 AW [id number]) Orientation Orientation/Cognition Level of Alertness Alert Orientation Name,Place,Situation Comments Pt presents with heightened anxiety. She tends to look to her caregiver for reassurance. Gross Range of Motion Upper Extremity ROM Assessment Within Functional Limits Lower Extremity ROM Assessment Within Functional Limits Strength Comments Strength Comments Pt with difficulty following directions for MMT but has clear anti gravity strength in all limbs. Sensation Assessment Comments Sensation Comments No paresthesias reported M6 PT-IP Treatment Start: 07/22/23 09:00 Freq: NEEDED Status: Active Protocol: Document 07/22/23 15:09 AW (Rec: 07/22/23 16:38 AW [id number]) Physical Therapy Treatment Education Education Provided Safety M7 PT-IP Assessment and Plan Start: 07/22/23 09:00 Freq: NEEDED Status: Active Protocol: Document 07/22/23 15:09 AW (Rec: 07/22/23 16:38 AW [id number]) PT Summary Assessment and Plan Potential Rehabilitation Potential Good Status of Condition at Evaluation Evolving Summary Impairments Balance,Cognition,Bed Mobility ,Transfers,Gait Assessment Summary Kate Little is a 78 yo woman admitted with septic encephalopathy. PMH includes dementia, suprapubic catheter, and recent fall with left proximal humerus fracture. PLOF: Pt resides with 11/02 caregiver on [facility] in a single level home with a few stairs to enter. Her caregiver notes her fall was quite out of the ordinary but is concerned pt's balance is worsening. Pt typically walks without any assistive device. CLOF: Limited assessment today due to positive orthostatic hypotension and syncopal episode x 2. Pt clearly has adequate strength and support for discharge home. Caregiver seeks advice on introducing a possible assistive device for balance support. Caregiver further states pt does not do well with a cane. In this PT's opinion, it may be a challenging time to introduce an assistive device with bilateral support such as a walker since pt is currently NWB LUE and is pending reverse total shoulder arthroscopy later this month. PT defers to outpatient therapy to guide selection of an assistive device. Pt already has OP PT scheduled to begin after her surgery. Will follow up once or twice for further mobility assessment once blood pressure has stabilized but anticipate safe discharge home with 24/7 caregiver support. Goals Bed Mobility Goal Minimal Assistance Transfer Goal Contact Guard Assistance Gait Goal Contact Guard Assistance Gait Distance 75 Other Goals - up/down 5 steps with railing and CGA Days to Meet Goals 2 Frequency of Treatment Frequency Of Treatment Once a Day Treatment Plan Physical Therapy Treatment Plan Bed Mobility Training,Transfer Training,Gait Training, Therapeutic Exercise,Balance Retraining,Discharge Planning, Hot or Cold Pack,Neuromuscular Re-ed Precautions Shoulder Precautions Sling Other Precautions monitor BP Weight Bearing Status Weight Bearing Status Non-Weight Bearing Allowed Weight Bearing Amount (enter % NWB LUE or #) (%) Recommendations To Nursing Amount of Assist Needed 1 Person Assist Discharge Recommendations PT Discharge Recommendations Home with 11/02 Assist Available,Outpatient PT Other Discharge Recommendations OPPT after TSA Transportation Needs at Discharge Private Vehicle
[2023-07-22] MEDS: SODIUM CHLORIDE 0.9% 500 ML 1000 ML IV (15:28)
[2023-07-22 17:00] VITALS: BP 138/68; PULSE 97; RESP 15; TEMP 36.6; O2SAT 97
[2023-07-22] MEDS: SODIUM CHLORIDE 0.9% 1,000 ML 84 ML IV (18:25)
--- NOTE | 2023-07-22 18:31 | PC.NURSE ---
Pt A&O to self, situation. Confused, cooperative. Pt VSS, declined breakfast, allowed reposition. Pt up to BSC, muscles went flaccid for approximately 10 seconds. Pt rousable, VSS. Pt assisted 2PA to BSC, then chair. Pt's BP remained stable. Provider notified. New orders received. Telemetry NSR. This RN assisted physical therapy to assist pt back to bed. Pt muscles flaccid upon standing and pivoting to bed, pt unresponsive for approximately ten seconds. Pt assisted back to bed, pt mildly orthostatic BP. Provider notified. New orders received. Will continue to monitor. Care ongoing.
[2023-07-22] MEDS: TRAZODONE 50 MG TABLET 100 MG PO (19:58)
[2023-07-22] MEDS: ACETAMINOPHEN 325 MG TABLET 650 MG PO (19:58)
[2023-07-22 20:00] VITALS: BP 118/51; PULSE 84; RESP 18; TEMP 36.7; O2SAT 99
[2023-07-23] VITALS: BP 130/57; BP 134/56; BP 148/76; PULSE 100; PULSE 117; PULSE 84; RESP 19; TEMP 36.2; O2SAT 93
[2023-07-23 04:00] VITALS: BP 129/57; PULSE 85; RESP 19; TEMP 36.7; O2SAT 96
[2023-07-23 04:49] LABS: Add Manual Diff / Slide Review NO; Basophils Absolute Auto 100 /uL (0-100); Basophils Percent Auto 1.2 % (0-2); Eosinophils Absolute Auto 400 /uL (0-450); Eosinophils Percent Auto 4.1 % (2-4); Hematocrit 34.7 % (36-46); Hemoglobin 11.5 g/dL (12.0-16.0); Lymphocytes Absolute Auto 1500 /uL (1100-4500); Mean Corpuscular Hemoglobin 30.7 PG (26-34); Mean Corpuscular Volume 93.1 fL (80-100); Monocytes Absolute Auto 900 /uL (0-900); Monocytes Percent Auto 9.3 % (3-14); Neutrophils Absolute Auto 6700 /uL (1500-7000); Neutrophils Percent Auto 69.4 % (50-75); Platelet Count 312 X10^3/uL (150-400); Red Blood Cell Count 3.73 X10^6/uL (4.0-5.2); Red Cell Distribution Width 13.8 % (11.6-14.8); White Blood Cell Count 9.7 X10^3/uL (4.5-11.0)
[2023-07-23 04:57] LABS: Blood Urea Nitrogen 17 mg/dL (7-17); Calcium 9.1 mg/dL (8.4-10.2); Carbon Dioxide 28 mmol/L (22-32); Chloride 105 mmol/L (98-107); Estimated Glomerular Filt Rate > 60 mL/min (>60); Glucose 94 mg/dL (80-110); HEMOLYSIS < 15 (0-50); Potassium 3.7 mmol/L (3.4-5.1); Sodium 135 mmol/L (137-145)
[2023-07-23] MEDS: SODIUM CHLORIDE 0.9% 1,000 ML 84 ML IV (04:58)
[2023-07-23 08:00] VITALS: BP 144/78; PULSE 94; RESP 18; TEMP 36.2; O2SAT 95
--- NOTE | 2023-07-23 08:38 | OT.IPNOTE ---
Per OT's eval yesterday, pt's caregiver independent to take care of pt for all needs. Per OT eval note discharge pt. Therefore to formally discontinue OT services.
[2023-07-23] MEDS: ENOXAPARIN 40 MG/0.4 ML SYRINGE SUBCUT (09:16)
[2023-07-23] MEDS: ONDANSETRON 4 MG ODT SL (09:17)
--- NOTE | 2023-07-23 09:22 | P.PN_ITS ---
Subjective Subjective Interval history: She still feels weak and is having episodes where she feels confused for short periods of time. Yesterday she was orthostatic, and received a L of saline and infusion of saline overnight. She denies any chest pain, or abdominal pain. Her suprapubic catheter was changed about once a month. Her friend has been taking care of her /7 for 2 years on [facility]. The patient needs assistance getting from bed to a standing position and then can shuffle for short way. This is her typical level of function at home. Exam Vital Signs (past 8 hours): - 07/23/23 04:00 07/23/23 08:00 Temperature 98.0 F 97.2 F L Pulse Rate 85 94 H Respiratory Rate 19 18 Blood Pressure 129/57 L 144/78 H Pulse Oximetry 96 95 Oxygen Flow Rate 0 Oxygen Delivery Method Room Air Oxygen Flow Rate 0 Narrative Exam Narrative: NAD, lethargic and withdrawn. Speech is normal. Lungs are clear, normal effort. Heart is regular, no murmur. Abdomen is soft, suprapubic catheter in place. Extremities are free of edema. Objective Labs 07/23/23 04:21 07/23/23 04:21 Labs: Laboratory Results - last 24 hr 07/23/23 04:21 WBC 9.7 RBC 3.73 L Hgb 11.5 L Hct 34.7 L MCV 93.1 MCH 30.7 MCHC 33.0 RDW 13.8 Plt Count 312 Neut % (Auto) 69.4 Lymph % (Auto) 16.0 L [place] % (Auto) 9.3 Eos % (Auto) 4.1 H Baso % (Auto) 1.2 Neut # (Auto) 6700 Lymph # (Auto) 1500 [place] # (Auto) 900 Eos # (Auto) 400 Baso # (Auto) 100 Sodium 135 L Potassium 3.7 Chloride 105 Carbon Dioxide 28 BUN 17 Creatinine 0.74 Estimated GFR > 60 BUN/Creatinine Ratio 23.0 H Glucose 94 Calcium 9.1 COUNTS INCLUDE 234 BEDS AT THE [facility] Medical History (Updated 07/20/23 @ 22:59 by Hao Garcia MD) Suprapubic catheter Dementia Family History Family/Other Hyperlipidemia Social History marital status: number of children: 0 household members: caregiver Smoking Status: Unknown if ever smoked alcohol intake: never Type(s) of exercise: walking frequency: 5-6 times per week Assessment & Plan Assessment & Plan narrative: 1. UTI associated with chronic supropubic catheter, POA and active. -continue Ceftriaxone 2. Septic encephalopathy, POA and active. -monitor mental status 3. Dementia, POA and active. 4. SIRS, POA and improved. 5. Lactic acidosis, POA and improved. 6. Left humerus fracture, POA and active. -sling. Additional plans: -continue IV fluids. -repeat orthostatics. -physical therapy evaluation for discharge planning, this patient may require [facility] facility for rehabilitation measures. -continue to monitor on telemetry. Time Spent With Patient Time with patient: 30 to 49 minutes with 50% spent counseling/coordinating care Quality VTE Deep Vein Thrombosis/Pulmonary Embolism Present on Admission: No
[2023-07-23 09:51] VITALS: BP 131/69; BP 143/76; BP 155/73; PULSE 106; PULSE 80; PULSE 89
--- NOTE | 2023-07-23 11:10 | PT.IPTN ---
Current Diagnoses Unspecified dementia, moderate, without behavioral disturbance, psychotic disturbance, mood disturbance, and anxiety (07/22/23) Insomnia, unspecified (07/22/23) Metabolic encephalopathy (07/22/23) Acute cystitis with hematuria (07/22/23) Systemic inflammatory response syndrome (SIRS) of non-infectious origin without acute organ dysfunction (07/22/23) Fracture of left shoulder girdle, part unspecified, subsequent encounter for fracture with delayed healing (07/22/23) History of falling (07/22/23) Other cystostomy status (07/22/23) Physical Therapy Treatment Note M2 PT-IP Current Condition Start: 07/22/23 09:00 Freq: NEEDED Status: Active Protocol: Document 07/22/23 15:09 AW (Rec: 07/22/23 16:38 AW [id number]) Physical Therapy Current Condition Current Condition Evaluation Date 07/22/23 Treatment Diagnosis septic encephalopathy; left proximal humerus fracture; impaired mobility Onset Date 07/21/23 M3 PT-IP Subjective Start: 07/22/23 09:00 Freq: NEEDED Status: Active Protocol: Document 07/23/23 11:46 TS (Rec: 07/23/23 12:02 TS [id number]) Subjective Physical Therapy Visit Type Type Treatment Note Visit Start Time 11:10 Visit Stop Time 11:38 Total Visit Minutes 28 Number of DEMAND PLANNER Visits 1 Physical Therapy Visit Comments Patient Comments Pt pleasantly confused, is not sure why she is in hospital, shoulder sling is donned, she is agreeable to PT. M4 PT-IP Mobility and Gait Start: 07/22/23 09:00 Freq: NEEDED Status: Active Protocol: Document 07/23/23 11:46 TS (Rec: 07/23/23 12:02 TS [id number]) PT-Transfer Assessment Sit to and From Stand Sit to and from Stand Moderate Assistance,1 Person Assistance,Use of Upper Extremities Equipment Transfer Assistive Device None,Gait Belt,Front Wheeled Walker Orthotic/Prosthetic Devices or Brace: No Comments Mobility Comments Pt found resting in chair, BP 128/58 in sitting prior to mobility. Sit to stand with FWW ModA from chair, pt required cues for NWB on LUE. She ambulated in ~100'Soumya for FWW management, pt tends to grasp with LUE on FWW, required cues for NWB throught gait with FWW. Pt ambulated another ~100' with no AD CGA, pt slightly unsteady but had no LOB. Pt ambulated back to room, requried rest break in chair. Sit to stand from chair with no AD ModA, pt required cues for pushing from arm of chair with RUE. She performed steps x5 Soumya with RUE on counter for support. Pt was left back in chair, all needs met, RN in room. Gait Assessment Gait Gait Assistance Required: Minimum Assistance Distance (Feet) 200 Assistive Devices Assistive Device Gait Belt,Front Wheeled Walker Orthotic/Prosthetic Devices or Brace: No Gait Deviations General Gait Pattern Wide Based Gait Factors Limiting Gait Function Factors Limiting Gait Function Decreased Activity Tolerance, Decreased Strength,Difficulty Following Directions,Poor Balance,Poor Safety Awareness Comments Gait Comments See mobility comments. Stair Climbing Assessment Evaluation Level of Assist On Stairs Minimal Assistance,1 Person Assistance Devices Stair Climbing Assistive Devices Right Railing Technique/Endurance Stair Climbing Direction Ascend and Descend Stair Climbing Technique Step to Step Number of Steps Climbed 5 Comments Stair Climbing Comments See mobility comments PT-Balance Assessment Sitting Balance and Reactions Static Sitting Balance Ability Good Dynamic Sitting Balance Ability Good Standing Balance and Reactions Static Standing Balance Ability Fair Dynamic Standing Balance Ability Fair Device Used FWW/No AD M5 PT-IP Objective Assessments Start: 07/22/23 09:00 Freq: NEEDED Status: Active Protocol: Document 07/22/23 15:09 AW (Rec: 07/22/23 16:38 AW [id number]) Orientation Orientation/Cognition Level of Alertness Alert Orientation Name,Place,Situation Comments Pt presents with heightened anxiety. She tends to look to her caregiver for reassurance. Gross Range of Motion Upper Extremity ROM Assessment Within Functional Limits Lower Extremity ROM Assessment Within Functional Limits Strength Comments Strength Comments Pt with difficulty following directions for MMT but has clear anti gravity strength in all limbs. Sensation Assessment Comments Sensation Comments No paresthesias reported M6 PT-IP Treatment Start: 07/22/23 09:00 Freq: NEEDED Status: Active Protocol: Document 07/23/23 11:46 TS (Rec: 07/23/23 12:02 TS [id number]) Physical Therapy Treatment Education Education Provided Safety M7 PT-IP Assessment and Plan Start: 07/22/23 09:00 Freq: NEEDED Status: Active Protocol: Document 07/23/23 11:46 TS (Rec: 07/23/23 12:02 TS [id number]) PT Summary Assessment and Plan Potential Rehabilitation Potential Good Summary Impairments Balance,Cognition,Bed Mobility ,Transfers,Gait Progress Towards Goals Progressing Toward Goals Assessment Summary Kate is making progress with her mobility this session. She progressed her gait to ~ 100' with FWW and ~100 with no AD. She lacks good safety awareness and of her NWB precaution, pt tends to grasp FWW during gait with LUE requring cues. She progressed her steps to x5 with Soumya and use of RUE counter support. She required increased assist for sit to stand from chair to ModA with FWW and with no AD. Her BP was unremarkable and denied any dizziness. She can follow single step directions ~90% and is motivated to work with PT. PT is recommending Home 11/02 vs SNF at this time. Pt could benefit from continued skilled daily PT before safe d/c home. If pt would go home caregiver should be scheduled before d/c. Goals Bed Mobility Goal Minimal Assistance Transfer Goal Contact Guard Assistance Gait Goal Contact Guard Assistance Gait Distance 75 Other Goals - up/down 5 steps with railing and CGA Days to Meet Goals 2 Frequency of Treatment Frequency Of Treatment Once a Day Treatment Plan Physical Therapy Treatment Plan Bed Mobility Training,Transfer Training,Gait Training, Therapeutic Exercise,Balance Retraining,Discharge Planning, Hot or Cold Pack,Neuromuscular Re-ed Precautions Shoulder Precautions Sling Other Precautions monitor BP Weight Bearing Status Weight Bearing Status Non-Weight Bearing Allowed Weight Bearing Amount (enter % NWB LUE or #) (%) Recommendations To Nursing Amount of Assist Needed 1 Person Assist Discharge Recommendations PT Discharge Recommendations Home with 11/02 Assist Available,Outpatient PT,Home vs SNF Transportation Needs at Discharge Private Vehicle
[2023-07-23] MEDS: cefTRIAXone 1,000 MG in SODIUM CHLORIDE 0.9% 100 ML 200 MG IV (11:26)
[2023-07-23 16:00] VITALS: BP 129/51; PULSE 79; RESP 18; TEMP 36.2; O2SAT 98
--- NOTE | 2023-07-23 16:42 | CM.DPNOTE ---
DCP Note CNC SPECIALIST reviewed EMR. Provider in rounds inquired if pt would benefit from SNF placement. Per PT, pt moves well. Could benefit from rehab but thinks pt could safely dc home with caregiver. CNC SPECIALIST spoke with caregiver at bedside. Pt pleasant but confused. Caregiver reports not being interested in SNF, I don't she would be a good fit there with her dementia. Caregiver not interested in HH, reports liking the option to get her out of the house for PT. Caregiver reports interested in hospital bed rental, CNC SPECIALIST gave caregiver appropriate information on [facility] bed rental/medicare guidelines for qualifying for hospital bed coverage. Caregiver asked this CNC SPECIALIST to call PCP Zi Hussein's office to let them know that CG will be reaching out about order for hospital bed. CNC SPECIALIST gave CG printed out copy of priority boarding pass. CG denies other CM needs and reports she can always reach out to pt's MATEO case specialist if something comes up. CNC SPECIALIST left message with it network administrator at Dr Zi Hussein's office, admin took down information and reported she would pass it along. Per RN, CG reports she'll feel confident taking pt home tomorrow after RN educated CG on difference between sleeping and a syncopal episode. Plan: home with CG support when medically stable, likely tomorrow. CG to transport- has priority medical boarding pass. CG denies other needs at this time. CM team will continue to follow closely. KAY Cedeño
[2023-07-23 20:00] VITALS: BP 121/54; PULSE 94; RESP 16; TEMP 36.4; O2SAT 96
--- NOTE | 2023-07-23 21:12 | PC.NURSE ---
1715 This RN called to pt's room (via [employer]) by NELY. SAFETY CLOTHING AND EQUIPMENT DEVELOPER states was assisting pt to eat dinner when pt suddenly closed her eyes and was not responding to voice/touch. This RN notified (hospitalist) who joined staff (this RN, SAFETY CLOTHING AND EQUIPMENT DEVELOPER, STOCK BROKER, and second AC RN) to assess pt. pt was moving R arm but not opening eyes or verbally responding to sternal rub or command. VSS, HOB elevated at 90 degrees. New order for tele an dysphagia diet. Withing minutes pt is opening eyes, HR recorded to be sinus rhythm, pt able to state name. STOCK BROKER states that she recalls pt having a similar episode previous day (reference note by Ming Bautista). Pt's caregiver in room through event and after. Pt denies any pain/discomfort and is without signs/symptoms of distress.
[2023-07-23] MEDS: TRAZODONE 50 MG TABLET 100 MG PO (22:21)
[2023-07-24 03:06] VITALS: BP 137/58; PULSE 80; RESP 18; TEMP 36.5; O2SAT 96
[2023-07-24 05:28] LABS: Add Manual Diff / Slide Review NO; Basophils Absolute Auto 100 /uL (0-100); Eosinophils Absolute Auto 400 /uL (0-450); Eosinophils Percent Auto 3.4 % (2-4); Hematocrit 35.7 % (36-46); Hemoglobin 11.7 g/dL (12.0-16.0); Lymphocytes Absolute Auto 1600 /uL (1100-4500); Lymphocytes Percent Auto 12.5 % (25-40); Mean Corpuscular HGB Conc 32.9 % (30-36); Mean Corpuscular Hemoglobin 30.6 PG (26-34); Mean Corpuscular Volume 92.9 fL (80-100); Monocytes Absolute Auto 1400 /uL (0-900); Monocytes Percent Auto 10.6 % (3-14); Neutrophils Absolute Auto 9500 /uL (1500-7000); Neutrophils Percent Auto 72.5 % (50-75); Platelet Count 321 X10^3/uL (150-400); Red Blood Cell Count 3.84 X10^6/uL (4.0-5.2); Red Cell Distribution Width 13.7 % (11.6-14.8)
[2023-07-24 05:55] LABS: Blood Urea Nitrogen 15 mg/dL (7-17); Carbon Dioxide 26 mmol/L (22-32); Chloride 101 mmol/L (98-107); Potassium 3.6 mmol/L (3.4-5.1); Sodium 134 mmol/L (137-145)
[2023-07-24 05:56] LABS: BUN Creatinine Ratio 21.4 (6-22); Calcium 9.2 mg/dL (8.4-10.2); Estimated Glomerular Filt Rate > 60 mL/min (>60); Glucose 93 mg/dL (80-110)
[2023-07-24 07:43] VITALS: BP 138/62; PULSE 82; TEMP 36.4; O2SAT 92
[2023-07-24 08:15] LABS: HEMOLYSIS 17 (0-50)
[2023-07-24] MEDS: ENOXAPARIN 40 MG/0.4 ML SYRINGE SUBCUT (09:29)
[2023-07-24] MEDS: cefTRIAXone 1,000 MG in SODIUM CHLORIDE 0.9% 100 ML 200 MG IV (09:29)
--- NOTE | 2023-07-24 10:20 | PT.IPTN ---
Current Diagnoses Unspecified dementia, moderate, without behavioral disturbance, psychotic disturbance, mood disturbance, and anxiety (07/22/23) Insomnia, unspecified (07/22/23) Metabolic encephalopathy (07/22/23) Acute cystitis with hematuria (07/22/23) Systemic inflammatory response syndrome (SIRS) of non-infectious origin without acute organ dysfunction (07/22/23) Fracture of left shoulder girdle, part unspecified, subsequent encounter for fracture with delayed healing (07/22/23) History of falling (07/22/23) Other cystostomy status (07/22/23) Physical Therapy Treatment Note M2 PT-IP Current Condition Start: 07/22/23 09:00 Freq: NEEDED Status: Active Protocol: Document 07/22/23 15:09 AW (Rec: 07/22/23 16:38 AW [id number]) Physical Therapy Current Condition Current Condition Evaluation Date 07/22/23 Treatment Diagnosis septic encephalopathy; left proximal humerus fracture; impaired mobility Onset Date 07/21/23 M3 PT-IP Subjective Start: 07/22/23 09:00 Freq: NEEDED Status: Active Protocol: Document 07/24/23 10:48 TS (Rec: 07/24/23 11:06 TS [id number]) Subjective Physical Therapy Visit Type Type Treatment Note Visit Start Time 10:20 Visit Stop Time 10:45 Total Visit Minutes 25 Notes Caregiver in room Number of SOCK KNITTER Visits 2 Physical Therapy Visit Comments Patient Comments Pt is pleasantly confused, is agreeable to PT. Therapy Pain Assessment Pain When Pain Assessed During Mobility Pain Present Pain Present Denied Pain M4 PT-IP Mobility and Gait Start: 07/22/23 09:00 Freq: NEEDED Status: Active Protocol: Document 07/24/23 10:48 TS (Rec: 07/24/23 11:06 TS [id number]) PT-Bed Mobility Assessment Sit to Supine Sit to Supine Maximum Assistance,1 Person Assistance Scooting Scooting to Edge of Bed Moderate Assistance PT-Transfer Assessment Comments Mobility Comments Pt found resting in bed, required max assist to don sling for LUE. Supine to sit MaxA for uprighting trunk and LEs to EOB, pt required cues for NWB on LUE and for handrail assist. Pt required ModA for scooting to EOB with use of transfer pad. She sat EOB CGA/Soumya at times, pt lacks core strength to maintain seated balance. Sitting EOB pt eventually passed out and became unresponsive, RN was called into room. She was brought back supine in bed where she laid unrepsonsive for ~1min. Pt was alert and did not know where she was or what had just happened. Pt was left in bed, all needs met, caregiver in room, RN notified. Gait Assessment Comments Gait Comments Not this session Stair Climbing Assessment Comments Stair Climbing Comments Not this session. PT-Balance Assessment Sitting Balance and Reactions Static Sitting Balance Ability Fair Dynamic Sitting Balance Ability Poor M5 PT-IP Objective Assessments Start: 07/22/23 09:00 Freq: NEEDED Status: Active Protocol: Document 07/22/23 15:09 AW (Rec: 07/22/23 16:38 AW [id number]) Orientation Orientation/Cognition Level of Alertness Alert Orientation Name,Place,Situation Comments Pt presents with heightened anxiety. She tends to look to her caregiver for reassurance. Gross Range of Motion Upper Extremity ROM Assessment Within Functional Limits Lower Extremity ROM Assessment Within Functional Limits Strength Comments Strength Comments Pt with difficulty following directions for MMT but has clear anti gravity strength in all limbs. Sensation Assessment Comments Sensation Comments No paresthesias reported M6 PT-IP Treatment Start: 07/22/23 09:00 Freq: NEEDED Status: Active Protocol: Document 07/24/23 10:48 TS (Rec: 07/24/23 11:06 TS [id number]) Physical Therapy Treatment Education Education Provided Safety M7 PT-IP Assessment and Plan Start: 07/22/23 09:00 Freq: NEEDED Status: Active Protocol: Document 07/24/23 10:48 TS (Rec: 07/24/23 11:06 TS [id number]) PT Summary Assessment and Plan Potential Rehabilitation Potential Good Summary Impairments Balance,Cognition,Bed Mobility ,Transfers,Gait Progress Towards Goals Slow Progress due to Medical Issues Assessment Summary Millicent is making slow progress with her mobility this session due to ongoing episodes of passing out and becoming unresponsive. For mobility she required MaxA to sit up to EOB and max cues for use of handrails. She required increased effort to maintain balance witting EOB, pt required CGA/Soumya at times. Sitting EOB she became unresponsive and required 2 person assist back to bed. After ~1-2mins pt became alert . PT is recommending home with 24/7 assist from caregiver at this time. Caregiver feels comfortable assisting her at home and recently got a hospital bed. Caregiver would like her to go to outpatient PT and not have HHPT. Goals Bed Mobility Goal Minimal Assistance Transfer Goal Contact Guard Assistance Gait Goal Contact Guard Assistance Gait Distance 75 Other Goals - up/down 5 steps with railing and CGA Days to Meet Goals 2 Frequency of Treatment Frequency Of Treatment Once a Day Treatment Plan Physical Therapy Treatment Plan Bed Mobility Training,Transfer Training,Gait Training, Therapeutic Exercise,Balance Retraining,Discharge Planning, Hot or Cold Pack,Neuromuscular Re-ed Precautions Shoulder Precautions Sling Other Precautions monitor BP Weight Bearing Status Weight Bearing Status Non-Weight Bearing Allowed Weight Bearing Amount (enter % NWB LUE or #) (%) Recommendations To Nursing Amount of Assist Needed 1 Person Assist Discharge Recommendations PT Discharge Recommendations Home with 11/02 Assist Available,Outpatient PT Transportation Needs at Discharge Private Vehicle
--- NOTE | 2023-07-24 11:50 | P.PN_ITS ---
Subjective Subjective Interval history: She is improving overall. She did have another episode today where she appeared to lose consciousness while sitting with physical therapy for 30-60 seconds. She had no tonic-clonic activity or grimacing. She then awoke and active quite normal. Her blood pressure and heart rate were normal the entire time and she was on telemetry. There was no tonic-clonic activity. Her episodes have been going on for about 2 weeks per her caregiver. They live on [place] where her friend/caregiver gives her 11/02 care. She is being treated for urinary tract infection, and she has no fevers and appears to be improving. Exam Vital Signs (past 8 hours): - 07/24/23 07:43 Temperature 97.6 F Pulse Rate 82 Blood Pressure 138/62 Pulse Oximetry 92 Oxygen Delivery Method Room Air Oxygen Flow Rate 0 Narrative Exam Narrative: NAD, fluent speech. She is oriented. Neck is supple. Lungs are clear, normal rate and effort. Heart is regular, no murmur. Abdomen is soft. Extremities are free of edema. She has a chronic suprapubic catheter which is changed once a month. Objective Labs 07/24/23 04:46 07/24/23 04:46 Labs: Laboratory Results - last 24 hr 07/24/23 04:46 WBC 13.0 H RBC 3.84 L Hgb 11.7 L Hct 35.7 L MCV 92.9 MCH 30.6 MCHC 32.9 RDW 13.7 Plt Count 321 Neut % (Auto) 72.5 Lymph % (Auto) 12.5 L Hart % (Auto) 10.6 Eos % (Auto) 3.4 Baso % (Auto) 1.0 Neut # (Auto) 9500 H Lymph # (Auto) 1600 Hart # (Auto) 1400 H Eos # (Auto) 400 Baso # (Auto) 100 Sodium 134 L Potassium 3.6 Chloride 101 Carbon Dioxide 26 BUN 15 Creatinine 0.70 Estimated GFR > 60 BUN/Creatinine Ratio 21.4 Glucose 93 Calcium 9.2 [facility] Medical History (Updated 07/20/23 @ 22:59 by Hao Garcia MD) Suprapubic catheter Dementia Family History Family/Other Hyperlipidemia Social History (Reviewed 07/17/23 @ 03:26 by FERN Dean marital status: number of children: 0 household members: caregiver Smoking Status: Unknown if ever smoked alcohol intake: never Type(s) of exercise: walking frequency: 5-6 times per week Assessment & Plan Assessment & Plan narrative: 1. UTI associated with chronic suprapubic catheter, POA and improving. -continue Ceftriaxone 1. Citrobacter freundii M.I.C. RX --------- --- * Amoxicillin/Clavulanate R * Cefazolin >=64 R * Cefepime <=1 S * Ceftazidime <=1 S * Ceftriaxone <=1 S * Ciprofloxacin <=0.25 S * Ertapenem <=0.5 S * Gentamicin <=1 S * Imipenem <=0.25 S * Levofloxacin <=0.12 S * Nitrofurantoin <=16 S * Tobramycin <=1 S * Trimethoprim/Sulfamethoxazole <=20 S * Piperacillin/Tazobactam <=4 S 2. Septic encephalopathy, POA and resolved. 3. Dementia, POA and active. 4. SIRS, POA and resolved. 5. Lactic acidosis, POA and resolved. 6. Left humerus fracture, POA and active. -sling. She is scheduled for surgical repair later in July. 7. Recurrent episodes of possible loss of consciousness, subacute and active. -she has had multiple episodes of closing her eyes and not responding for 30 seconds to 2 minutes while in the hospital. Each time her vital signs have been unremarkable and her telemetry has shown no a arrhythmia. She will then wake up and active fairly normal. Her caregiver notes that this was happening for 1-2 weeks prior to arrival. She has no history of seizure disorder. Otherwise she is doing well. She was able to walk with Physical therapy, they are recommendations were home with supervision. After long discussion with the patient and caregiver about the clinical uncertainty of why she is having these episodes we agreed to the following plan: -trial of Keppra 500 b.i.d., we will watch her in the hospital for 24 hours or so to be sure she has no adverse effects of the medication. If she is doing well we will continue this at home for several more weeks with close primary care follow-up. They understand that it is completely unclear if this may represent atypical seizure activity but this is a possible plan to alleviate her symptoms. -they are agreeable to returning home to [facility] tomorrow with this plan in place. She will have had 3 days of antibiotics and may benefit from extension of oral antibiotics at home until she is able to see her PCP. Perhaps a total course of 7 days or so. DISPO: If she tolerates Keppra, home tomorrow with caregiver to their home in [facility]. They will use private vehicle and have a [place] past. Follow up will be with primary care within 6 days. 3-4 additional days of oral antibiotics may be considered for her urinary tract infection associated with suprapubic catheter. Quality VTE Deep Vein Thrombosis/Pulmonary Embolism Present on Admission: No
[2023-07-24 12:25] VITALS: BP 119/63; PULSE 94; RESP 16; TEMP 36.3; O2SAT 94
[2023-07-24] MEDS: levETIRAcetam 250 MG TABLET 500 MG PO ×2 (12:39→20:50)
--- NOTE | 2023-07-24 12:39 | CM.DPC ---
DCP Cont: Patient has been working with therapy, has been improving, according to the therapy team. Caregiver plans to take patient home. Hospitalist still has some concerns about her current mental status. Patient's caregiver was given a priority boarding pass already from [facility]. Plan will be home when stable, does not want any home health services, caregiver brings her here to [place] for catheter changes. P: DCP to continue to follow for any needs, plan most likely will be home with caregiver support. Has priority boarding pass. Divya Garcia RN/Missionary Coordinator
[2023-07-24] MEDS: OXYCODONE/ACETAMINOPHEN 5/325 TABLET 1 TAB PO ×2 (14:24→23:16)
[2023-07-24] MEDS: ACETAMINOPHEN 325 MG TABLET 650 MG PO ×2 (14:25→23:15)
[2023-07-24 16:45] VITALS: BP 112/52; PULSE 85; RESP 15; TEMP 35.9; O2SAT 94
[2023-07-24 20:00] VITALS: BP 123/64; PULSE 86; RESP 18; TEMP 35.9; O2SAT 93
[2023-07-24] MEDS: TRAZODONE 50 MG TABLET 100 MG PO (20:50)
[2023-07-25] VITALS (7 sets, daily range): BP systolic 108–152; BP diastolic 48–69; PULSE 68–112; RESP 16–20; TEMP 35.9–36.6; O2SAT 92–95
[2023-07-25 04:54] LABS: Add Manual Diff / Slide Review NO; Basophils Absolute Auto 100 /uL (0-100); Basophils Percent Auto 1.2 % (0-2); Eosinophils Absolute Auto 400 /uL (0-450); Eosinophils Percent Auto 4.6 % (2-4); Hematocrit 36.8 % (36-46); Hemoglobin 12.3 g/dL (12.0-16.0); Lymphocytes Absolute Auto 1700 /uL (1100-4500); Lymphocytes Percent Auto 19.3 % (25-40); Mean Corpuscular HGB Conc 33.4 % (30-36); Mean Corpuscular Hemoglobin 31.2 PG (26-34); Mean Corpuscular Volume 93.3 fL (80-100); Monocytes Absolute Auto 1000 /uL (0-900); Monocytes Percent Auto 11.2 % (3-14); Neutrophils Absolute Auto 5700 /uL (1500-7000); Neutrophils Percent Auto 63.7 % (50-75); Platelet Count 314 X10^3/uL (150-400); Red Blood Cell Count 3.95 X10^6/uL (4.0-5.2); Red Cell Distribution Width 13.6 % (11.6-14.8)
[2023-07-25 05:03] LABS: BUN Creatinine Ratio 26.7 (6-22); Blood Urea Nitrogen 23 mg/dL (7-17); Calcium 9.3 mg/dL (8.4-10.2); Carbon Dioxide 27 mmol/L (22-32); Chloride 101 mmol/L (98-107); Estimated Glomerular Filt Rate > 60 mL/min (>60); Glucose 92 mg/dL (80-110); HEMOLYSIS < 15 (0-50); Sodium 135 mmol/L (137-145)
[2023-07-25] MEDS: ENOXAPARIN 40 MG/0.4 ML SYRINGE SUBCUT (08:57)
[2023-07-25] MEDS: levETIRAcetam 250 MG TABLET 500 MG PO ×2 (08:58→20:18)
--- NOTE | 2023-07-25 09:37 | P.DS_ITS ---
History of Present Illness History of Present Illness Date Patient Seen: 07/25/23 Time Patient Seen: 09:38 Chief complaint: passing out all day Narrative: 77y/o with PMH of advanced dementia, s/p suprapubic catheter, has caregivers, who recently had functional decline, recurrent UTIs and falls. In May she fractured Lt shoulder. Seen in the ED few days ago for altered mental status, diagnosed with UTI and discharged on Keflex. Did not improve at home so presented again with UTI, SIRS, acute metabolic encephalopathy. UC from prior visit grew citrobacter and klebsiella, both resistant to Keflex. Discharge Providers Provider Date of admission: 07/22/23 16:28 Discharge Date: 07/25/23 Primary care physician: Zi Hussein MD Consults: 07/21/23 07:21 Consult to Occupational Therapy Evaluate & Treat Comment: Physician Instructions: Evaluate and treat Consult to Physical Therapy Evaluate & Treat Comment: Physician Instructions: Evaluate and Treat Discharge provider: Gómez Ornelas DO Summary Hospital Course Hospital Course: 1. UTI associated with chronic suprapubic catheter, POA and improving. -continue Ceftriaxone 1. Citrobacter freundii M.I.C. RX --------- --- * Amoxicillin/Clavulanate R * Cefazolin >=64 R * Cefepime <=1 S * Ceftazidime <=1 S * Ceftriaxone <=1 S * Ciprofloxacin <=0.25 S * Ertapenem <=0.5 S * Gentamicin <=1 S * Imipenem <=0.25 S * Levofloxacin <=0.12 S * Nitrofurantoin <=16 S * Tobramycin <=1 S * Trimethoprim/Sulfamethoxazole <=20 S * Piperacillin/Tazobactam <=4 S 2. Septic encephalopathy, POA and resolved. 3. Dementia, POA and active. 4. SIRS, POA and resolved. 5. Lactic acidosis, POA and resolved. 6. Left humerus fracture, POA and active. -sling. She is scheduled for surgical repair later in July. 7. Recurrent episodes of possible loss of consciousness, subacute and active. -she has had multiple episodes of closing her eyes and not responding for 30 seconds to 2 minutes while in the hospital. Each time her vital signs have been unremarkable and her telemetry has shown no a arrhythmia. She will then wake up and active fairly normal. Her caregiver notes that this was happening for 1-2 weeks prior to arrival. She has no history of seizure disorder. Otherwise she is doing well. She was able to walk with Physical therapy, they are recommendations were home with supervision. After long discussion with the patient and caregiver about the clinical uncertainty of why she is having these episodes we agreed to the following plan: -trial of Keppra 500 b.i.d., we will watch her in the hospital for 24 hours or so to be sure she has no adverse effects of the medication. If she is doing well we will continue this at home for several more weeks with close primary care follow-up. They understand that it is completely unclear if this may represent atypical seizure activity but this is a possible plan to alleviate her symptoms. -they are agreeable to returning home to [facility] tomorrow with this plan in place. She will have had 3 days of antibiotics and may benefit from extension of oral antibiotics at home until she is able to see her PCP. Perhaps a total course of 7 days or so. DISPO: If she tolerates Keppra, home tomorrow with caregiver to their home in [facility]. They will use private vehicle and have a [place] past. Follow up will be with primary care within 6 days. 3-4 additional days of oral antibiotics may be considered for her urinary tract infection associated with suprapubic catheter. Time Spent with Patient Time spent: Greater than 30 minutes Exam Vital Signs (past 8 hours): - 07/25/23 04:00 07/25/23 08:00 Temperature 96.7 F L 97.6 F Pulse Rate 74 80 Respiratory Rate 16 19 Blood Pressure 126/50 L 119/50 L Pulse Oximetry 94 95 Oxygen Flow Rate 0 0 Oxygen Delivery Method Room Air Oxygen Flow Rate 0 Narrative Exam Narrative: NAD, fluent speech though quite soft spoken. She is oriented. Neck is supple. Lungs are clear, normal rate and effort. Heart is regular, no murmur. Abdomen is soft. Extremities are free of edema. She has a chronic suprapubic catheter which is changed once a month. Objective Labs 07/25/23 04:39 07/25/23 04:39 Labs: Laboratory Results - last 24 hr 07/25/23 04:39 WBC 9.0 RBC 3.95 L Hgb 12.3 Hct 36.8 MCV 93.3 MCH 31.2 MCHC 33.4 RDW 13.6 Plt Count 314 Neut % (Auto) 63.7 Lymph % (Auto) 19.3 L [place] % (Auto) 11.2 Eos % (Auto) 4.6 H Baso % (Auto) 1.2 Neut # (Auto) 5700 Lymph # (Auto) 1700 [place] # (Auto) 1000 H Eos # (Auto) 400 Baso # (Auto) 100 Sodium 135 L Potassium 4.0 Chloride 101 Carbon Dioxide 27 BUN 23 H Creatinine 0.86 Estimated GFR > 60 BUN/Creatinine Ratio 26.7 H Glucose 92 Calcium 9.3 PFSH Medical History (Updated 07/20/23 @ 22:59 by Hao Garcia MD) Suprapubic catheter Dementia Family History Family/Other Hyperlipidemia Social History marital status: number of children: 0 household members: caregiver Smoking Status: Unknown if ever smoked alcohol intake: never Type(s) of exercise: walking frequency: 5-6 times per week Discharge Plan Discharge Plan Patient Disposition: Home Discharge orders & Medications Prescriptions: New levetiracetam 500 mg tablet 500 mg PO BID 30 Days Qty: 60 0RF Continued (DME) Shower Chair See Rx Instructions .Route .MEDSUPPLY Qty: 1 0RF Rx Instructions: As directed (DME) Hospital Bed, electric See Rx Instructions .ROUTE .MEDSUPPLY Qty: 1 0RF Rx Instructions: As directed [facility] oxycodone-acetaminophen [Percocet] 5-325 mg tablet 1 tab PO Q6H PRN (Reason: pain) Qty: 112 0RF Rx Instructions: must last 28 days. Release date 07/04/23. trazodone 50 mg tablet 100 mg PO BEDTIME PRN (Reason: insomnia) Qty: 180 1RF Discontinued cephalexin 500 mg capsule 500 mg PO BID 7 Days Qty: 14 0RF Follow up/Referrals: Zi Hussein MD [Primary Care Provider] - Visit Report/Discharge Packet Stand Alone Forms: Patient Portal/API, Stroke Signs & Symptoms Discharge Data Primary Care Provider: Zi Hussein Quality VTE Deep Vein Thrombosis/Pulmonary Embolism Present on Admission: No
--- NOTE | 2023-07-25 10:12 | DI.ECHO.S_ITS ---
[facility]---------+ [facility] +---------+ : : [address] : : : : [id number] : : : : Phone: [phone]+ Echocardiogram Report + + :Name: CHONG PEREZ Study Date: 07/25/2023 Height: 60 in : :[place] ReadingLocation: Weight: 188 lb : : Gender: Female BSA: 1.8 m2 : :: 1945 Age: 78 yrs BP: 119/50 mmHg: :Reason For Study: SYNCOPE : :Ordering Physician: VENANCIO, : :ELKE RAYMUNDO Performed By: Nayely Boone : :Referring: ELKE CRAFT : + + Interpretation Summary The left ventricular cavity is small. Left ventricular systolic function is normal. The ejection fraction is estimated to be 60-65%. There are no obvious focal wall motion abnormalities noted but poor endocardial definition reduces the sensitivity for the detection of such. Diastolic parameters suggest a relaxation abnormality of the left ventricle, consistent with probable normal filling pressures. The right ventricle is not well visualized. The right ventricle is grossly normal size. The right ventricular systolic function is normal. Pulmonary artery pressures cannot be estimated because of the lack of a measurable TR jet velocity. There is no significant valvular heart disease. The aortic root is normal size. Procedure: A two-dimensional transthoracic echocardiogram with color flow and Doppler was performed. The study quality was technically adequate. There is no prior echocardiogram noted for this patient. The patient was in sinus rhythm with heart rates between 76-85 bpm during the exam. Left Ventricle: The left ventricular cavity is small. There is normal left ventricular wall thickness. Left ventricular systolic function is normal. The ejection fraction is estimated to be 60-65%. There are no obvious focal wall motion abnormalities noted but poor endocardial definition reduces the sensitivity for the detection of such. Diastolic parameters suggest a relaxation abnormality of the left ventricle, consistent with probable normal filling pressures. Right Ventricle: The right ventricle is not well visualized. The right ventricle is grossly normal size. The right ventricular systolic function is normal. Atria: The left atrial size is normal. Right atrial size is normal. There is no Doppler evidence for an interatrial shunt. Mitral Valve: The mitral valve is normal in structure and function. There is no mitral regurgitation noted. Aortic Valve: The aortic valve is trileaflet. The aortic valve opens well. There is no aortic valve stenosis. No aortic regurgitation is present. Tricuspid Valve: The tricuspid valve is normal in structure and function. There is trace tricuspid regurgitation. Pulmonary artery pressures cannot be estimated because of the lack of a measurable TR jet velocity. Pulmonic Valve: The pulmonic valve is not well seen, but is grossly normal. There is no pulmonic valvular regurgitation. There is no significant valvular heart disease. Great Vessels: The aortic root is normal size. The dimensions of the ascending aorta are normal. The IVC is of normal diameter and collapses greater than 50% with a sniff. This suggests a low right atrial pressure of 3 mm Hg. Pericardium/ Pleura There is no pericardial effusion. There is no pleural effusion. MMode/2D Measurements & Calculations LVIDd: 3.4 cm LVOT diam: 2.0 cm LVIDs: 2.4 cm Ao root diam: 2.8 cm FS: 29.9 % asc Aorta Diam: 3.1 cm EPSS: 0.49 cm Ao Arch Diam (Prox Trans): 2.8 cm IVSd: 1.1 cm LVPWd: 0.93 cm LV lazo. diameter/BSA (cm/m^2): 1.9 LV sys. diameter/BSA (cm/m^2): 1.3 LA A2 area: 9.8 cm2 RA long axis: 3.8 cm LA A4 area: 12.6 cm2 RA area: 8.1 cm2 LA length (vol): 4.4 cm RA vol: 14.7 ml LA vol: 24.0 ml RA : 8.1 ml/m2 LA vol index: 13.2 ml/m2 IVC diam: 0.98 cm TAPSE: 1.8 cm Doppler Measurements & Calculations Ao V2 max: 123.0 cm/sec LVOT Max Cesario: 100.7 cm/sec Ao V2 mean: 98.4 cm/sec LV V1 max P.1 mmHg Ao max P.1 mmHg LV V1 VTI: 23.3 cm Ao mean P.1 mmHg LUCIAN(I,D): 2.6 cm2 Ao V2 VTI: 27.3 cm LUCIAN(V,D): 2.5 cm2 sev ratio: 0.85 LUCIAN indexed to BSA (cm^2/m^2): 1.4 MV E max cesario: 78.7 cm/sec PA V2 max: 81.8 cm/sec MV A max cesario: 96.8 cm/sec PA V2 mean: 59.2 cm/sec MV E/A: 0.81 PA mean P.5 mmHg Med Peak E' Cesario: 6.9 cm/sec PA pr(Accel): 17.3 mmHg E/E' med: 11.4 Lat Peak E' Cesario: 6.3 cm/sec E/E' lat: 12.4 E/e' average: 11.9 MV dec time: 0.23 sec SV(LVOT): 69.8 ml Reading Physician:06:22 PM
[2023-07-25] MEDS: cefTRIAXone 1,000 MG in SODIUM CHLORIDE 0.9% 100 ML 200 MG IV (10:24)
--- NOTE | 2023-07-25 11:20 | PT-IP ANOTE ---
Pt is lethargic and is having difficulty staying alert. She is not appropriate at this time for PT. PT will attempt to see pt later in afternoon if more appropriate.
--- NOTE | 2023-07-25 12:18 | CM.DPNOTE ---
DCP Cont Dr Ornelas was planning on discharging patient today. RN Lamar reports that patient continues to have near syncopal events and discharge is cancelled. Friend/caregiver/DPOA (ppk in chart) Jerrica Ruiz in room this morning waiting to speak with Dr Ornelas. Jerrica continues to plan to take patient home to resume home care. Likely will discuss HH services again in case caregiver/DPOA Jerrica feels patient would benefit (Alpha ) CM team following closely for coordination of discharge plan. JW
--- NOTE | 2023-07-25 13:17 | PM.PN.1 ---
Subjective Subjective Interval history: She is improving overall. She did have another episode today where she appeared to lose consciousness while trying to stand up. Her HR shot up to 112 and she went limp but quickly recovered. BP did not drop and was in the 140s-150s. Tele monitor again showed no events. Her episodes have been going on for about 2 weeks per her caregiver. They [place] on [place] where her friend/caregiver gives her 11/02 care. She is being treated for urinary tract infection, and she has no fevers and appears to be improving. Echocardiogram was ordered today for recurrent syncope to evaluate for any possible valvular pathologies. Exam Vital Signs (past 8 hours): - 07/25/23 08:00 07/25/23 10:07 07/25/23 12:00 Temperature 97.6 F 97.8 F Pulse Rate 80 68 Pulse Rate [Orthostatic Lying] 79 Pulse Rate [Orthostatic Sitting] 93 H Pulse Rate [Orthostatic Standing] 112 H Respiratory Rate 19 20 Blood Pressure 119/50 L 108/48 L Blood Pressure [Orthostatic Lying] 144/61 H Blood Pressure [Orthostatic Sitting] 143/62 H Blood Pressure [Orthostatic Standing] 152/65 H Pulse Oximetry 95 95 Oxygen Flow Rate 0 0 Oxygen Delivery Method Room Air Oxygen Flow Rate 0 Narrative Exam Narrative: NAD, fluent speech. She is oriented. Neck is supple. Lungs are clear, normal rate and effort. Heart is regular, no murmur. Abdomen is soft. Extremities are free of edema. She has a chronic suprapubic catheter which is changed once a month. Objective Labs 07/25/23 04:39 07/25/23 04:39 Labs: Laboratory Results - last 24 hr 07/25/23 04:39 WBC 9.0 RBC 3.95 L Hgb 12.3 Hct 36.8 MCV 93.3 MCH 31.2 MCHC 33.4 RDW 13.6 Plt Count 314 Neut % (Auto) 63.7 Lymph % (Auto) 19.3 L [place] % (Auto) 11.2 Eos % (Auto) 4.6 H Baso % (Auto) 1.2 Neut # (Auto) 5700 Lymph # (Auto) 1700 [place] # (Auto) 1000 H Eos # (Auto) 400 Baso # (Auto) 100 Sodium 135 L Potassium 4.0 Chloride 101 Carbon Dioxide 27 BUN 23 H Creatinine 0.86 Estimated GFR > 60 BUN/Creatinine Ratio 26.7 H Glucose 92 Calcium 9.3 [facility] Medical History (Updated 07/20/23 @ 22:59 by Hao Garcia MD) Suprapubic catheter Dementia Family History Family/Other Hyperlipidemia Social History marital status: number of children: 0 household members: caregiver Smoking Status: Unknown if ever smoked alcohol intake: never Type(s) of exercise: walking frequency: 5-6 times per week Assessment & Plan Assessment & Plan narrative: 1. UTI associated with chronic suprapubic catheter, POA and improving. -continue Ceftriaxone 1. Citrobacter freundii M.I.C. RX --------- --- * Amoxicillin/Clavulanate R * Cefazolin >=64 R * Cefepime <=1 S * Ceftazidime <=1 S * Ceftriaxone <=1 S * Ciprofloxacin <=0.25 S * Ertapenem <=0.5 S * Gentamicin <=1 S * Imipenem <=0.25 S * Levofloxacin <=0.12 S * Nitrofurantoin <=16 S * Tobramycin <=1 S * Trimethoprim/Sulfamethoxazole <=20 S * Piperacillin/Tazobactam <=4 S 2. Septic encephalopathy, POA and resolved. 3. Dementia, POA and active. 4. SIRS, POA and resolved. 5. Lactic acidosis, POA and resolved. 6. Left humerus fracture, POA and active. -sling. She is scheduled for surgical repair later in July. 7. Recurrent episodes of possible loss of consciousness, subacute and active. -she has had multiple episodes of closing her eyes and not responding for 30 seconds to 2 minutes while in the hospital. Each time her vital signs have been unremarkable and her telemetry has shown no a arrhythmia. She will then wake up and active fairly normal. Her caregiver notes that this was happening for 1-2 weeks prior to arrival. She has no history of seizure disorder. Otherwise she is doing well. She was able to walk with Physical therapy, they are recommendations were home with supervision. - will continue keppra, cannot rule out seizure but recurred today. - check echocardiogram with tachycardia noted prior to episode today to rule out valvular pathology leading to recurrent syncope. - if echo unremarkable, can be further evaluated with primary care. DISPO: If echo is okay, home tomorrow with caregiver to their home in [facility]. They will use private vehicle and have a [place] past. Follow up will be with primary care within 5 days. 3-4 additional days of oral antibiotics may be considered for her urinary tract infection associated with suprapubic catheter. Quality VTE Deep Vein Thrombosis/Pulmonary Embolism Present on Admission: No
[2023-07-25] MEDS: ONDANSETRON 4 MG ODT PO ×2 (13:46→21:45)
--- NOTE | 2023-07-25 14:59 | PT-IP ANOTE ---
Pt found asleep in bed, caregiver at bedside. Pt would not rouse and was left to rest. PT will check on pt tomorrow.
[2023-07-26] VITALS (7 sets, daily range): BP systolic 105–129; BP diastolic 41–69; PULSE 77–119; RESP 16–20; TEMP 36–36.6; O2SAT 92–97
[2023-07-26 05:21] LABS: Add Manual Diff / Slide Review NO; Basophils Absolute Auto 100 /uL (0-100); Basophils Percent Auto 0.7 % (0-2); Eosinophils Absolute Auto 500 /uL (0-450); Eosinophils Percent Auto 4.8 % (2-4); Hematocrit 36.6 % (36-46); Hemoglobin 12.4 g/dL (12.0-16.0); Lymphocytes Absolute Auto 1400 /uL (1100-4500); Lymphocytes Percent Auto 14.2 % (25-40); Mean Corpuscular HGB Conc 33.8 % (30-36); Mean Corpuscular Hemoglobin 31.2 PG (26-34); Mean Corpuscular Volume 92.2 fL (80-100); Monocytes Absolute Auto 900 /uL (0-900); Monocytes Percent Auto 9.1 % (3-14); Neutrophils Absolute Auto 7200 /uL (1500-7000); Neutrophils Percent Auto 71.2 % (50-75); Platelet Count 310 X10^3/uL (150-400); Red Blood Cell Count 3.96 X10^6/uL (4.0-5.2); Red Cell Distribution Width 13.4 % (11.6-14.8); White Blood Cell Count 10.1 X10^3/uL (4.5-11.0)
[2023-07-26 05:31] LABS: BUN Creatinine Ratio 22.5 (6-22); Blood Urea Nitrogen 18 mg/dL (7-17); Calcium 9.5 mg/dL (8.4-10.2); Carbon Dioxide 29 mmol/L (22-32); Chloride 99 mmol/L (98-107); Estimated Glomerular Filt Rate > 60 mL/min (>60); Glucose 87 mg/dL (80-110); HEMOLYSIS < 15 (0-50); Potassium 3.7 mmol/L (3.4-5.1); Sodium 135 mmol/L (137-145)
[2023-07-26] MEDS: cefTRIAXone 1,000 MG in SODIUM CHLORIDE 0.9% 100 ML 200 MG IV (10:20)
[2023-07-26] MEDS: ENOXAPARIN 40 MG/0.4 ML SYRINGE SUBCUT (10:20)
--- NOTE | 2023-07-26 11:30 | PT-IP ANOTE ---
Pt found alert with caregiver in room. While donning shoulder sling pt became unresponsive and fell back asleep. Pt would not awaken from touch or by voice, RN was notified.
--- NOTE | 2023-07-26 12:43 | CM.DPNOTE ---
DCP Cont Patient remains somnolent off and on today, Dr Ornelas wanting to aim for patient's discharge tomorrow. According to Dr Ornelas, Caregiver Jerrica wavering between discharge home vs SNF. Met w/ patient's DPOA/caregiver Jerrica at bedside to review discharge plan. Discussed home w/ HH vs Hospice vs SNF. Jerrica agreed with this TECTONOPHYSICIST that patient is not a very good rehab candidate r/t her advanced dementia. Jerrica requested a referral to [facility] and plans to resume care of patient at home w/assist from her and her son. Jerrica explains patient's room is set up in their living room in order for patient and her family to look after patient. Jerrica requests BLS transport in order to get patient home safely. Explained there is potential for out of pocket cost for BLS transport, Jerrica states understanding. Placed call to Ambulance, scheduled transport for brick picker 07.27.23 at 1140 [place] make [place] [address] to [facility]. BLS form completed, signed by Dr Ornelas and placed on patient's red chart with the face sheet and the priority board pass for the ferry (valid 1.09.14-2.08.14). Patient is currently full code. Updated Jerrica who states appreciation [place] there when patient arrives. Placed call to Colleen at [facility]. Discussed referral. Patient meets criteria, Colleen anticipates [facility] can open services Saturday07.29.23. Info visit will likely be done with Jerrica later today. Plan: Discharge anticipated tomorrow, home w/cg Jerrica and her family via BLS, [facility] to follow, deliver DME and open services likely Saturday. MALATHI
--- NOTE | 2023-07-26 13:22 | PT-IP ANOTE ---
Pt alert when awakened this afternoon but somewhat lethargic. Pt refused OOB mobility this afternoon, would like to rest. PT will check back with pt tomorrow.
--- NOTE | 2023-07-26 14:41 | PM.PN.1 ---
Subjective Subjective Interval history: Continues to have intermittent syncopal episodes. Keppra was stopped as it seemingly has been worse the last few days. MAURICE is interested in hospice services at home, though patient to remain full code at this time. Exam Vital Signs (past 8 hours): - 07/26/23 08:00 07/26/23 09:45 07/26/23 12:00 Temperature 97.8 F 97.3 F L Pulse Rate 83 83 Respiratory Rate 20 19 Blood Pressure 129/68 126/69 Pulse Oximetry 97 95 Oxygen Delivery Method Room Air Oxygen Flow Rate 0 0 Oxygen Delivery Method Room Air Oxygen Flow Rate 0 Narrative Exam Narrative: NAD, fluent speech. She is oriented. Neck is supple. Lungs are clear, normal rate and effort. Heart is regular, no murmur. Abdomen is soft. Extremities are free of edema. She has a chronic suprapubic catheter which is changed once a month. Objective Labs 07/26/23 04:30 07/26/23 04:30 Labs: Laboratory Results - last 24 hr 07/26/23 04:30 WBC 10.1 RBC 3.96 L Hgb 12.4 Hct 36.6 MCV 92.2 MCH 31.2 MCHC 33.8 RDW 13.4 Plt Count 310 Neut % (Auto) 71.2 Lymph % (Auto) 14.2 L [place] % (Auto) 9.1 Eos % (Auto) 4.8 H Baso % (Auto) 0.7 Neut # (Auto) 7200 H Lymph # (Auto) 1400 [place] # (Auto) 900 Eos # (Auto) 500 H Baso # (Auto) 100 Sodium 135 L Potassium 3.7 Chloride 99 Carbon Dioxide 29 BUN 18 H Creatinine 0.80 Estimated GFR > 60 BUN/Creatinine Ratio 22.5 H Glucose 87 Calcium 9.5 PFSH Medical History (Updated 07/20/23 @ 22:59 by Hao Garcia MD) Suprapubic catheter Dementia Family History Family/Other Hyperlipidemia Social History marital status: number of children: 0 household members: caregiver Smoking Status: Unknown if ever smoked alcohol intake: never Type(s) of exercise: walking frequency: 5-6 times per week Assessment & Plan Assessment & Plan narrative: 1. UTI associated with chronic suprapubic catheter, POA and improving. -continue Ceftriaxone until discharge. 1. Citrobacter freundii M.I.C. RX --------- --- * Amoxicillin/Clavulanate R * Cefazolin >=64 R * Cefepime <=1 S * Ceftazidime <=1 S * Ceftriaxone <=1 S * Ciprofloxacin <=0.25 S * Ertapenem <=0.5 S * Gentamicin <=1 S * Imipenem <=0.25 S * Levofloxacin <=0.12 S * Nitrofurantoin <=16 S * Tobramycin <=1 S * Trimethoprim/Sulfamethoxazole <=20 S * Piperacillin/Tazobactam <=4 S 2. Septic encephalopathy, POA and resolved. 3. Dementia, POA and active. 4. SIRS, POA and resolved. 5. Lactic acidosis, POA and resolved. 6. Left humerus fracture, POA and active. -sling. She is scheduled for surgical repair later in July. 7. Recurrent episodes of possible loss of consciousness, subacute and active. -she has had multiple episodes of closing her eyes and not responding for 30 seconds to 2 minutes while in the hospital. Each time her vital signs have been unremarkable and her telemetry has shown no a arrhythmia. She will then wake up and active fairly normal. Her caregiver notes that this was happening for 1-2 weeks prior to arrival. She has no history of seizure disorder. Otherwise she is doing well. She was able to walk with Physical therapy, they are recommendations were home with supervision. - will stop keppra as only has been worse since starting, with increased somnolence. - checked echocardiogram with tachycardia noted prior to episode yesterday to rule out valvular pathology leading to recurrent syncope, which was unremarkable. - can be further evaluated with primary care. DISPO: Plan for discharge home tomorrow with BLS needed for transport. Will plan for hospice to evaluate at home as well. Patient will remain full code. Quality VTE Deep Vein Thrombosis/Pulmonary Embolism Present on Admission: No
[2023-07-26] MEDS: ONDANSETRON 4 MG ODT PO (14:59)
[2023-07-27] VITALS: BP 101/61; PULSE 84; RESP 17; TEMP 36.1; O2SAT 93
[2023-07-27] MEDS: ACETAMINOPHEN 325 MG TABLET 650 MG PO (03:04)
[2023-07-27 04:00] VITALS: BP 122/56; PULSE 82; RESP 18; TEMP 36.2; O2SAT 93
--- NOTE | 2023-07-27 08:27 | PM.DS.1 ---
History of Present Illness History of Present Illness Date Patient Seen: 07/27/23 Time Patient Seen: 08:27 Chief complaint: passing out all day Narrative: Per admitting provider, 77y/o with PMH of advanced dementia, s/p suprapubic catheter, has caregivers, who recently had functional decline, recurrent UTIs and falls. In May she fractured Lt shoulder. Seen in the ED few days ago for altered mental status, diagnosed with UTI and discharged on Keflex. Did not improve at home so presented again with UTI, SIRS, acute metabolic encephalopathy. UC from prior visit grew citrobacter and klebsiella, both resistant to Keflex. Discharge Providers Provider Date of admission: 07/22/23 16:28 Discharge Date: 07/27/23 Primary care physician: Zi Hussein MD Consults: 07/21/23 07:21 Consult to Occupational Therapy Evaluate & Treat Comment: Physician Instructions: Evaluate and treat Consult to Physical Therapy Evaluate & Treat Comment: Physician Instructions: Evaluate and Treat Discharge provider: Gómez Ornelas DO Summary Hospital Course Discharge Diagnosis: 1. UTI associated with chronic suprapubic catheter, POA and improving. 2. Acute metabolic encephalopathy, POA and resolved. 3. Dementia, POA and active. 4. Left humerus fracture, POA and active. 5. Recurrent episodes of possible loss of consciousness, subacute and active. Hospital Course: This is a 78 year old female with PMH of dementia who was admitted after multiple episodes of loss of consciousness. She was found to have a UTI and likely sepsis with acute metabolic encephalopathy and improved slightly with antibiotics for which she will complete therapy at home. She continued to have recurrent episodes of loss of consciousness. Each of these were at most a couple of minutes. There was no evidence of seizure activity during these, and her vitals and telemetry were further unremarkable. She was trialed on keppra which only seemed to worsen her lethargy and increased her number of episodes. Echocardiogram was unremarkable with no notable valvular pathologies. Further evaluation can be performed an outpatient. Consider addition of stimulants if symptoms continue, though there is also significant risks for her given her underlying conditions as well. She and caregiver did wish to discharge home on hospice, though patient would like to remain full code at this time. Further goals of care discussions are recommended moving forward. Time Spent with Patient Time spent: Greater than 30 minutes Exam Vital Signs (past 8 hours): - 07/27/23 04:00 Temperature 97.1 F L Pulse Rate 82 Respiratory Rate 18 Blood Pressure 122/56 L Pulse Oximetry 93 Oxygen Flow Rate 0 Oxygen Delivery Method Room Air Oxygen Flow Rate 0 Narrative Exam Narrative: NAD, fluent speech. She is oriented. Neck is supple. Lungs are clear, normal rate and effort. Heart is regular, no murmur. Abdomen is soft. Extremities are free of edema. She has a chronic suprapubic catheter which is changed once a month. Objective Labs 07/26/23 04:30 07/26/23 04:30 [facility] Medical History (Updated 07/20/23 @ 22:59 by Hao Garcia MD) Suprapubic catheter Dementia Family History Family/Other Hyperlipidemia Social History marital status: number of children: 0 household members: caregiver Smoking Status: Unknown if ever smoked alcohol intake: never Type(s) of exercise: walking frequency: 5-6 times per week Discharge Plan Discharge Plan Patient Disposition: Hospice - Home Provider Discharge Comment: You were admitted to the hospital with a urinary infection. Complete antibiotics at home with another 3 days of therapy sent to [facility]. (This was sent a few days ago, so you only need to take another 2 days of this medication). You were started on a seizure medication for episodes of non-responsiveness, but this did not seem to help and was stopped, do not pickle processor that medication. Please follow up with PCP as soon as possible after discharge to review hospitalization and medication changes and for further evaluation of these non-responsive episodes. Discharge orders & Medications Prescriptions: New cefdinir 300 mg capsule 300 mg PO BID 5 Days Qty: 10 0RF ondansetron 4 mg Tablet,Disintegrating 4 mg PO Q8HR PRN (Reason: Nausea And Vomiting) 30 Days Qty: 30 0RF ondansetron HCl 4 mg tablet 4 mg PO Q8H PRN (Reason: nausea and vomiting) 30 Days Qty: 30 0RF cefdinir 300 mg capsule 300 mg PO BID 3 Days Qty: 6 0RF Continued (DME) Shower Chair See Rx Instructions .Route .MEDSUPPLY Qty: 1 0RF Rx Instructions: As directed (DME) Hospital Bed, electric See Rx Instructions .ROUTE .MEDSUPPLY Qty: 1 0RF Rx Instructions: As directed [facility] (DME) Jack lift See Rx Instructions .ROUTE .MEDSUPPLY Qty: 1 0RF Rx Instructions: As directed oxycodone-acetaminophen [Percocet] 5-325 mg tablet 1 tab PO Q6H PRN (Reason: pain) Qty: 112 0RF Rx Instructions: must last 28 days. Release date 07/04/23. trazodone 50 mg tablet 100 mg PO BEDTIME PRN (Reason: insomnia) Qty: 180 1RF Discontinued cephalexin 500 mg capsule 500 mg PO BID 7 Days Qty: 14 0RF Follow up/Referrals: Zi Hussein MD [Primary Care Provider] - (Dr.R Collado nurse will contact you with a appointment to be scheduled with in 3-5 days of disscharge ) Diet/Activity/Treatments Diet: Diet as Tolerated Activity: resume previous activity with regards to L arm Visit Report/Discharge Packet Stand Alone Forms: Patient Portal/API, Stroke Signs & Symptoms Discharge Data Primary Care Provider: Zi Hussein Quality VTE Deep Vein Thrombosis/Pulmonary Embolism Present on Admission: No
[2023-07-27 09:20] VITALS: BP 148/79; PULSE 82; RESP 18; TEMP 36.3; O2SAT 96
[2023-07-27] MEDS: ENOXAPARIN 40 MG/0.4 ML SYRINGE SUBCUT (10:23)
[2023-07-27] MEDS: cefTRIAXone 1,000 MG in SODIUM CHLORIDE 0.9% 100 ML 200 MG IV (10:23)
--- NOTE | 2023-07-27 12:01 | PC.NURSE ---
Pt discharged home at 1150, escorted off floor in stretcher accompanied by S transport team. IV removed, discharge paperwork sent with [facility] transport. Discharge teaching completed over the phone with caregiver Jerrica . Patient left the floor with all belongings.
--- NOTE | 2023-07-27 12:23 | CM.DPNOTE ---
DC Note Patient has been discharged as predicted; home to [facility] w/caregiver Jerrica awaiting patient's arrival, transport via BLS. BLS form had been completed, signed and placed on patient's chart with face sheet and copy of the priority board ignacio vergara. DC Summary faxed to [facility]. Spoke with patient's cg Jerrica by phone this morning. [facility] Jerrica agreeable to plan and states appreciation. MALATHI
== END 2023-07-27 12:16 | disposition hospice, home (50) | DRG 698 ==
LOC: ED 22:04 → AC 23:52
PROVIDERS: Student in an Organized Health Care Education/Training Program; Admitting Provider Internal Medicine; Emergency Provider Emergency Medicine; PCP Family Medicine; Referring Provider Emergency Medicine; Visit Provider Internal Medicine
DX: T83.518A Infection and inflammatory reaction due to other urinary catheter, initial encounter (principal); A41.9 Sepsis, unspecified organism; G93.41 Metabolic encephalopathy; N39.0 Urinary tract infection, site not specified; Z16.11 Resistance to penicillins; E87.20 Acidosis, unspecified; F03.B0 Unspecified dementia, moderate, without behavioral disturbance, psychotic disturbance, mood disturbance, and anxiety; S42.92XG Fracture of left shoulder girdle, part unspecified, subsequent encounter for fracture with delayed healing; G47.00 Insomnia, unspecified; R55 Syncope and collapse; X58.XXXD Exposure to other specified factors, subsequent encounter; Z91.81 History of falling
CPT/HCPCS: 36415; 70450; 71045; 80048; 80053; 81001; 82550; 82962; 83605; 83690; 84145; 84484; 85025; 85610; 85730; 87040; 87077; 87086; 87186; 87633; 93005; 93306; 96365; 97116; 97162; 97165; 97530; 99285; G0378; J0696; J1650; J2405